=== PATIENT | male | born 1955 | race African-American/Black ===

== ENCOUNTER 2018-08-07 11:15 | Inpatient (IN) | payer MEDICARE, OTHER ==
[2018-08-07] MEDS ORDERED: Morphine 4 MG/ML VIAL ONE (12:31)
[2018-08-07 13:11] LABS: Anion Gap 15 mmol/L (10-20); BUN (Urea Nitrogen) 14 mg/dL (8.4-25.7); Calc. Creatinine Clearance 0 mL/min (70-130); Calcium 8.4 mg/dL (7.8-10.44); Carbon Dioxide 19 mmol/L (23-31); Chloride 107 mmol/L (98-107); Estimated GFR-MDRD 56; Glucose 102 mg/dL (80-115); Potassium 3.7 mmol/L (3.5-5.1); Sodium 137 mmol/L (136-145)
[2018-08-07] MEDS ORDERED: Succinylcholine Chloride 20 MG/ML 10 ml SYRINGE FS ONE (13:14)
[2018-08-07] MEDS ORDERED: Glycopyrrolate 0.2 MG/ML 5 ML SYRINGE ONE (13:14)
[2018-08-07] MEDS ORDERED: PROPOFOL 200 MG/20 ML VIAL ONE (13:14)
[2018-08-07] MEDS ORDERED: Dexamethasone 20 MG/5 ML VIAL ONE (13:14)
[2018-08-07] MEDS ORDERED: Ondansetron PF 4 MG/2 ML Vial ONE (13:14)
[2018-08-07] MEDS ORDERED: Lidocaine 1% PF 5 ML VIAL ONE (13:14)
[2018-08-07] MEDS ORDERED: PHENYLEPHRINE-NS 100 MCG/ML 10 ML SYRINGE ONE (13:14)
[2018-08-07] MEDS ORDERED: Dextrose 50% Abboject 50 ML SYRINGE SLOW IVP PRN ×2 (13:28→18:25)
[2018-08-07] MEDS ORDERED: Promethazine HCl 25 MG/ML VIAL IM PRN ×4 (13:28→18:25)
[2018-08-07] MEDS ORDERED: Ondansetron PF 4 MG/2 ML Vial IVP PRN ×3 (13:28→18:25)
[2018-08-07] MEDS ORDERED: Dextrose 5% in Water 1,000 ML IV PRN ×2 (13:28→18:25)
[2018-08-07] MEDS ORDERED: Acetaminophen 325 MG TAB PO PRN (13:28)
[2018-08-07] MEDS ORDERED: hydrALAZINE 20 MG/ML VIAL SLOW IVP PRN ×2 (13:28→18:25)
--- NOTE | 2018-08-07 13:28 | PDOC.EVN ---
Event Note - Event Note Event Note: H&P dictation number [id number]
[2018-08-07] MEDS ORDERED: ABX RENAL DOSE IVPB PRN (13:38)
--- NOTE | 2018-08-07 14:10 | HP-2 ---
DATE OF SERVICE: 08/07/2018 REFERRED BY: Dr. Natanael Ibanez in the emergency department. SURGERY ATTENDING: Kelvin Loza DO. REASON FOR CONSULTATION: 1. Peritonitis. 2. Acute ruptured appendicitis. 3. Sepsis without evidence of septic shock. HISTORY OF PRESENT ILLNESS: Mr. River is 63-year-old male with a past medical history of hypertensi on, hyperlipidemia who presented to the emergency department in [place] today with a chief complaint of 3 days onset of abdominal pain, anorexia, nausea, and vomiting. The patient states that his abdo lianna pain got acutely worse. He presented to the emergency department today. The patient was noted to have a lactate of 8, stable vital signs. Had a creatinine of 2.3. Severe abdominal pain with pe ritoneal signs. CT abdomen and pelvis reportedly demonstrates a ruptured appendicitis. The patient was given Zosyn, 2 liters of fluid, morphine, Toradol, and transferred to [facility] fo r surgery consultation. Upon arrival to the emergency department, the patient still has abdominal pa in, remains with stable vital signs and we have been consulted for admission and operative management of the patient's acute condition. I have seen the patient in the emergency department, he complains of 3 days of abdominal pain, still having tammie abdominal pain and is now diffuse at this point. He is anorexic. Last oral intake was 3 days ago. He is passing flatus, but not had a bowel movement. He has no prior abdominal surgeries . He is tachycardic on arrival. Blood pressure has remained stable. He is slightly febrile here. The patient has been given an additional liter of fluid. Repeat labs are in process. Patient is n.p .o. He denies any chest pain, shortness of breath. Denies any current nausea or vomiting. His pain is better controlled after morphine. He has no rashes and no history of bleeding or anticoagulants. REVIEW OF SYSTEMS: Pertinent positive and negative per HPI, otherwise 12-point review of systems is negative. PAST MEDICAL HISTORY: 1. Hypertension. 2. Hyperlipidemia. PAST SURGICAL HISTORY: Denies. ALLERGIES: No known drug allergies. MEDICATIONS: Carvedilol 3.125 mg daily. FAMILY HISTORY: His mother is 90 and healthy, not taking any medicine. Father of a perforated ulcer. SOCIAL HISTORY: The patient currently lives in [place]. He is retired and . 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 Has no service. He smokes 1 cigarette per day and chews smokeless tobacco. Rarely drinks alcohol. He has 2 sons at the bedside. PHYSICAL EXAMINATION: VITAL SIGNS: Temperature is 99.8, blood pressure 112/74, heart rate is 112, respiratory rate is 16. SpO2 96% on room air. GENERAL: This is a 63-year-old male sitting up in bed, in no acute distress. HEENT: Normocephalic, atraumatic. Trachea is midline. No JVD is appreciated. Mucous membranes are dry. RESPIRATORY: Equal rise and fall. Bilateral breath sounds clear to auscultation upper and lower karime aterally. CARDIOVASCULAR: Tachycardic, regular rhythm, rate of 112, no murmurs, no edema and strong peripheral pulses. ABDOMEN: Diffusely distended, tender throughout has positive peritoneal signs, rigidity and guarding is appreciated. GENITOURINARY: Palm is in place with yellow urine. MUSCULOSKELETAL: Moves extremities well. No deformity. SKIN: Hot, warm and dry. PSYCHIATRIC: Normal mood and affect. NEUROLOGIC: Alert and oriented to person, place, time, and event. DIAGNOSTIC DATA: From today, EKG shows a sinus tachycardia at the outside facility at a rate of 142, QT is 409. He has normal intervals, leftward axis. No STEMI is appreciated and occasional PVCs. W shraddha blood cell count was 10.3 with platelets of 356, hemoglobin and hematocrit 16.2 and 46.8 respect ively. No neutrophil predominance. Troponin was less than 0.01, a CK-MB of 1.0. Lactic acid was 8. 6, lipase of 21. Chemistry: Sodium is 137, potassium 3.9, chloride is 96, CO2 is 20, creatinine is 2.17, BUN of 15. He does have an anion gap of 25, glucose 165, bilirubin is 1.5, alkaline phosphatas e is 104, AST 32, ALT 37. A CT abdomen and pelvis reportedly demonstrates peritonitis and ruptured a ppendix. ASSESSMENT: 1. Acute peritonitis, likely secondary to ruptured appendicitis. 2. Severe sepsis without occult septic shock. 3. Lactic acidosis. 4. Tachycardia, likely secondary to #1 above. 5. Acute abdominal pain, likely secondary to #1 above. PLAN: 1. Continue fluid administration. 2. Continue antibiotics. 3. Repeat lactic acid now. 4. Blood cultures x2 have been ordered. 5. Likely needs operative repair. We will keep n.p.o. 6. Discussed OR with patient, verbalized understanding of the same. 7. Obtain consent. 8. Monitor blood pressure, maintain mean arterial pressure greater than 65. 9. Oxygen as needed to maintain SpO2 greater than 92%. 10. Diet will be n.p.o. 11. Activity: Bed rest until postoperatively. 12. Prophylaxis will be famotidine. Hold chemical DVT prophylaxis secondary to operative repair and we can apply sequential compression devices. 13. FULL CODE. 14. Access, or peripheral IVs and a Palm catheter. DISPOSITION: OR than likely the surgery main. I have updated the patient at the bedside and answered all questions of the patient and the family. I have coordinating care with the emergency department physician and we will discuss the plan with Dr Hector Loza.
[2018-08-07 14:46] LABS: Mean Corpuscular HGB CONC 32.5 g/dL (32.0-36.0); Mean Corpuscular Hemoglobin 29.2 pg (27.0-31.0); Mean Platelet Volume 7.5 fL (7.4-10.4); Platelet Count 225 thou/uL (130-400); RBC Distribution Width 13.2 % (11.5-14.5); Red Blood Cell (RBC) Count 4.78 mill/uL (4.70-6.10); White Blood Cell (WBC) Count 3.4 thou/uL (4.8-10.8)
[2018-08-07] MEDS ORDERED: Bupivacaine/Epinephrine 0.25% 30 ML VIAL ONE (14:48)
[2018-08-07 15:06] LABS: Band 6 % (5-11); Lymphocytes 31 % (21-51); MDiff Complete? YES; Monocytes 7 % (0-10); Neutrophil 56 % (42-75); PLT Morphology Comment Appears Adequate
[2018-08-07] MEDS ORDERED: Fentanyl 100 MCG/2 ML VIAL ONE ×3 (15:17→18:26)
[2018-08-07] MEDS ORDERED: Albumin 5% 500 ML ONE (15:57)
[2018-08-07] MEDS ORDERED: Ondansetron HCl/PF 4 MG/2 ML Vial IVP PRN (18:22)
[2018-08-07] MEDS ORDERED: Promethazine HCl 25 MG/ML VIAL SLOW IVP PRN (18:22)
[2018-08-07] MEDS ORDERED: Naloxone HCl 0.4 mg/ml Vial IV PRN (18:25)
[2018-08-07] MEDS ORDERED: HYDROmorphone 10 mg/100 ml CADD IVPB PRN (18:25)
[2018-08-07] MEDS ORDERED: diphenhydrAMINE 50 MG/ML VIAL IVP PRN (18:25)
[2018-08-07] MEDS ORDERED: diphenhydrAMINE 50 MG/ML VIAL IM PRN (18:25)
[2018-08-07] MEDS ORDERED: diphenhydrAMINE 25 MG CAP PO PRN (18:25)
[2018-08-07] MEDS ORDERED: Communication Order-Pharmacy FS SCH (18:30)
--- NOTE | 2018-08-07 19:04 | OP ---
DATE OF OPERATION: 08/07/2018 PREOPERATIVE DIAGNOSIS: Acute appendicitis with perforation. POSTOPERATIVE DIAGNOSES: 1. Acute necrotic appendicitis with rupture. 2. Multiple intraperitoneal abscesses with generalized peritonitis. OPERATION PERFORMED: 1. Laparoscopic appendectomy. 2. Drainage of multiple intraperitoneal abscesses. SURGEON: Kelvin Loza D.O. ANESTHESIA: General endotracheal. ESTIMATED BLOOD LOSS: 20 mL. FLUIDS GIVEN: 2500 mL crystalloids and 500 mL colloids. COMPLICATIONS: None apparent at time of operation. COUNTS: Sponge and instrument count are certified as correct x2. INDICATIONS FOR PROCEDURE: This is a 63-year-old man who presented with reportedly a 3-day history of right lower quadrant abdominal pain. He took some [id number] remedies witho ut relief, presented to the emergency department once started having fever yesterday. Clinical and r adiographic examination was consistent with acute appendicitis with perforation for which the patient was brought to the operating room for laparoscopic appendectomy. Findings are consistent with a nec rotic ruptured appendix with 2 large extraluminal appendicolith. Multiple intraperitoneal abscesses were encountered with much of pus. DESCRIPTION OF PROCEDURE: Informed consent was obtained from the patient who was brought to the oper ating room and placed in supine position. Following general anesthesia, a Palm catheter was inserte d and placed at bedside drain. The abdomen was sterilely prepped and draped in usual fashion. Skin below the umbilicus was infiltrated with 0.25% Marcaine with epinephrine. A small curvilinear infrau mbilical incision was made using an 11 scalpel. Umbilical stalk grasped with Lizzie's and elevated. Veress needle was inserted through the incision and placed in the peritoneal cavity through which th e abdomen was insufflated with 1.5 liters of CO2 gas insufflation terminated at the intra-abdominal p ressure of 15 mmHg. Intraabdominal pressure, however, was noted at 5 mmHg. Following abdominal insu fflation, Veress needle was removed and a 5 mm trocar was introduced using the Visiport under laparos copy. Laparoscopy confirmed proper placement of the port. Additional laparoscopy reveals multiple purulent exudates over the entire anterior abdominal wall inv olving bowel and omentum. Under direct laparoscopy, 5 mm suprapubic and a 12 mm left lower quadrant ports were placed after the overlying skin was infiltrated with 0.25% Marcaine with epinephrine and a ppropriate incisions made. The patient was then placed in a Trendelenburg position, rotated to his l eft. I used a Prestige grasper to bluntly take down omental adhesions off the right lower quadrant, exposing multiple interloop abscesses along the way with much of purulent pus which were evacuated. We were able to trace the distal ileum from the ileocecal junction to proximal 2 feet, finding no Mec andrew's diverticulum. Additional exploration revealed ruptured enlarged suppurative appendix with a ru ptured near the base of the appendix. Two large panniculus with sitting outside of the appendiceal lumen walled off within the bowel loops. There was also extensive amount of purulent pus all around the right lower quadrant and deep pelvis . Under laparoscopy, the two larger pedicles were removed using an EndoCatch. We then turned our at tention to the ruptured appendix. Using a [place] dissector, we created a rent through the mesoappe ndix near the ileocecal junction up. Through this defect, an Endo-VILMA with a blue load was introduce d dividing the appendix at the appendical cecal junction. The mesoappendix itself was sterilely divi ded using white load of the Endo-VILMA stapler. The ruptured appendix is delivered of the abdominal ca vity using an EndoCatch. We were then able to breakdown loculations of small bowel interloop abscess es. Evacuated the abscesses as they were encountered. Following this, the abdominal cavity was copi ously irrigated with saline solution until it was clear. Finding no other pathology, laparoscopy was terminated. A #19 Mannie drain was introduced into the right lateral gutters allowing this to exit t hrough the suprapubic port site. The drain was secured to intra-abdominal wall using 2-0 silk suture . Fascia of the left lower quadrant port was then closed using 0 Vicryl suture and Endo closure fredy ce under laparoscopy. Abdomen was desufflated. The remainder of the ports removed and accounted for . Skin incisions were closed using interrupted sutures of 4-0 Monocryl. Dermabond was applied over the incisional closure. The patient tolerated the operation without any apparent complication and wa s sent to recovery room in satisfactory condition.
[2018-08-07] MEDS ORDERED: Famotidine/PF 20 mg/2ml Vial SLOW IVP SCH (21:00)
[2018-08-07] MEDS ORDERED: Famotidine 20 MG TAB PO SCH (21:00)
[2018-08-07 21:30] VITALS: BMI 23.7
[2018-08-07] MEDS: Piperacillin/Tazobactam 3.375 GM in Sodium Chloride 0.9% 100 ML IVPB SCH ×2 (21:31→22:57)
[2018-08-07] MEDS: Sodium Chloride 0.9% 1,000 ML IV SCH ×2 (21:31→22:27)
[2018-08-07] MEDS: Famotidine/PF 20 mg/2ml Vial SLOW IVP SCH (22:26)
[2018-08-07] MEDS: Enoxaparin Sodium 40 MG/0.4 ML SYRINGE SC SCH (22:27)
[2018-08-07] MEDS: Famotidine 20 MG TAB PO SCH (22:27)
[2018-08-07] MEDS ORDERED: Piperacillin/Tazobactam 3.375 GM in Sodium Chloride 0.9% 100 ML IVPB SCH (23:59)
[2018-08-08] MEDS: Acetaminophen 1,000 MG in Premix Bag 1 BAG IVPB SCH ×4 (01:29→22:10)
[2018-08-08 04:54] LABS: Anion Gap 9 mmol/L (10-20); BUN (Urea Nitrogen) 9 mg/dL (8.4-25.7); Calc. Creatinine Clearance 90 mL/min (70-130); Calcium 8.8 mg/dL (7.8-10.44); Carbon Dioxide 30 mmol/L (23-31); Chloride 107 mmol/L (98-107); Estimated GFR-MDRD Greater than 90; Glucose 138 mg/dL (80-115); Magnesium 2.5 mg/dL (1.6-2.6); Potassium 4.3 mmol/L (3.5-5.1); Sodium 142 mmol/L (136-145)
[2018-08-08] MEDS: Piperacillin/Tazobactam 3.375 GM in Sodium Chloride 0.9% 100 ML IVPB SCH ×5 (05:24→22:10)
[2018-08-08] MEDS: Sodium Chloride 0.9% 1,000 ML IV SCH ×3 (05:25→16:02)
[2018-08-08] MEDS ORDERED: Prevnar 13-Val Conj/PF 0.5 ML SYRINGE IM ONE (09:00)
[2018-08-08] MEDS: Famotidine 20 MG TAB PO SCH ×2 (09:16→22:18)
[2018-08-08] MEDS: Famotidine/PF 20 mg/2ml Vial SLOW IVP SCH ×2 (09:18→22:10)
[2018-08-08 10:17] LABS: Band 51 % (5-11); Hemoglobin 12.3 g/dL (14.0-18.0); Lymphocytes 12 % (21-51); MDiff Complete? YES; Mean Corpuscular HGB CONC 32.4 g/dL (32.0-36.0); Mean Corpuscular Hemoglobin 29.3 pg (27.0-31.0); Mean Corpuscular Volume 90.4 fL (78.0-98.0); Mean Platelet Volume 7.9 fL (7.4-10.4); Monocytes 13 % (0-10); Neutrophil 13 % (42-75); Platelet Count 206 thou/uL (130-400); RBC Distribution Width 13.4 % (11.5-14.5); Reactive Lymphocytes 11 % (0-10)
[2018-08-08] MEDS: Ketorolac Tromethamine 30 MG/ML VIAL IVP SCH ×2 (14:01→18:12)
--- NOTE | 2018-08-08 15:06 | PRG ---
DATE OF SERVICE: 08/08/2018 SUBJECTIVE: Mr. River is a 63-year-old -[place] man who is postop day #1 status post laparo scopic appendectomy and drainage of extensive peritoneal abscesses. He is awake and alert this morni ng. He reports adequate pain control. He is not passing any flatus or having bowel movement. Howev er, denies any nausea. Urinary output is adequate. His nasogastric tube is in place and returns mod erate amount of bile-stained gastric effluent. OBJECTIVE: VITAL SIGNS: This morning includes blood pressure 123/77, pulse is 87, respiratory rate is 18, tempe rature is 98.4 degrees Fahrenheit, and oxygen saturation 91% on room air. HEENT: Pupils equal, round, and reactive to light and accommodation. HEART: Reveals regular rate and rhythm, no murmurs or gallops auscultated. LUNGS: Clear to auscultation bilaterally. Breathing is regular and unlabored. ABDOMEN: Soft and distended with gas. He has rebound tenderness present. However, decrease in abdo lianna tenderness from yesterday. Bowel sounds are hypoactive. EXTREMITIES: Reveals 2+ radial and pedal pulses bilaterally. No ankle edema is present. NEUROLOGIC: Examination reveals no focal deficits present. LABORATORY DATA: Laboratory findings today includes CBC with 6,000 white blood cells, hemoglobin and hematocrit 12.3 and 38.0 respectively. Platelet count is 206,000. Metabolic profile; sodium 142, p otassium 4.3, chloride is 107, bicarbonate is 30, BUN is 9, creatinine 0.97, glucose is 138, magnesiu m 2.5, phosphorus is 2.0. IMPRESSION: Postop day #1, status post laparoscopic appendectomy and drainage of multiple peritoneal abscesses. PLAN: 1. Continue with IV antibiotic therapy. 2. Continue with bowel rest and nasogastric tube decompression. 3. Increase activity. Above findings and plan discussed with the patient who indicates understanding of the information giv en to him today in the presence of his family. They all indicated understanding of information given . I answered their questions.
[2018-08-08] MEDS: Enoxaparin Sodium 40 MG/0.4 ML SYRINGE SC SCH (22:10)
[2018-08-09] MEDS: Ketorolac Tromethamine 30 MG/ML VIAL IVP SCH ×2 (00:16→05:23)
[2018-08-09] MEDS: Sodium Chloride 0.9% 1,000 ML IV SCH ×3 (00:17→13:02)
[2018-08-09] MEDS: Piperacillin/Tazobactam 3.375 GM in Sodium Chloride 0.9% 100 ML IVPB SCH ×2 (05:22→10:06)
[2018-08-09] MEDS: Acetaminophen 1,000 MG in Premix Bag 1 BAG IVPB SCH (05:22)
[2018-08-09] MEDS ORDERED: Acetaminophen 325 MG TAB PO PRN (06:00)
[2018-08-09] MEDS: Famotidine/PF 20 mg/2ml Vial SLOW IVP SCH ×2 (10:05→21:32)
[2018-08-09] MEDS: Famotidine 20 MG TAB PO SCH ×2 (10:06→21:41)
[2018-08-09] MEDS ORDERED: traMADol HCl 50 MG TAB PO PRN (11:18)
[2018-08-09] MEDS ORDERED: traMADol HCl 50 MG TAB PO SCH (11:30)
[2018-08-09] MEDS: Acetaminophen 500 MG TAB PO SCH ×3 (12:30→23:33)
[2018-08-09] MEDS: traMADol HCl 50 MG TAB PO SCH ×3 (12:31→23:33)
[2018-08-09] MEDS: Ibuprofen 600 MG TAB PO SCH ×2 (15:07→21:33)
--- NOTE | 2018-08-09 19:39 | PRG ---
DATE OF SERVICE: 08/09/2018 SUBJECTIVE: Mr. Chilo River is a 63-year-old male postop day 2 status post laparoscopic appendectom y and drainage of peritoneal abscess. There were no acute events. The patient's NG tube has been re moved. He reports passing flatus, but no bowel movement. OBJECTIVE: VITAL SIGNS: Temperature 97.8, pulse 84, respirations 16, O2 sat 94% on room air, blood pressure 139 /91. GENERAL: Well-developed male, in no acute distress, resting in bed. PULMONARY: Normal work of breathing. Symmetric rise. CARDIOVASCULAR: Regular rate and rhythm. GASTROINTESTINAL: Abdomen is soft, nontender and nondistended. MUSCULOSKELETAL: Moves all extremities x4. NEUROLOGIC: No focal deficit is noted. LABORATORY FINDINGS: No new laboratory findings. ASSESSMENT: 1. Status post laparoscopic appendectomy postop day 2. 2. Status post drainage of peritoneal abscess. PLAN: Advance diet to clear liquid diet. Transition from IV to oral antibiotics. Discontinue ROCK PICKER a t this time. Discontinue Palm. Oral analgesics. Saline lock. Continue to encourage incentive spi rometry and pulmonary toileting. Continue to encourage mobility and ambulation. Plan of care was di scussed with the patient at bedside and all questions were answered at the time of this dictation. T he patient was seen and evaluated with Dr. Loza.
[2018-08-09] MEDS: Amoxicillin/Potassium Clav 875 MG TAB PO SCH (21:32)
[2018-08-09] MEDS: Enoxaparin Sodium 40 MG/0.4 ML SYRINGE SC SCH (21:32)
[2018-08-10] MEDS: traMADol HCl 50 MG TAB PO SCH ×2 (06:07→12:48)
[2018-08-10] MEDS: Ibuprofen 600 MG TAB PO SCH (06:07)
[2018-08-10] MEDS: Acetaminophen 500 MG TAB PO SCH ×2 (06:07→12:49)
[2018-08-10] MEDS: Amoxicillin/Potassium Clav 875 MG TAB PO SCH (08:50)
[2018-08-10] MEDS ORDERED: Polyethylene Glycol 3350 17 GM Packet PO SCH (09:00)
[2018-08-10] MEDS ORDERED: Senokot 8.6 MG TAB PO SCH (09:00)
[2018-08-10] MEDS: Famotidine 20 MG TAB PO SCH (10:16)
[2018-08-10 11:36] VITALS: BP 143/88; TEMP 97.1
--- NOTE | 2018-08-11 11:10 | DIS-2 ---
DATE OF ADMISSION: 08/07/2018 DATE OF DISCHARGE: 08/10/2018 RESIDENT: Abbie Burger M.D. ADMITTING ATTENDING: Kelvin Loza D.O. DISCHARGE ATTENDING: Gokul Liam M.D. CONSULTATIONS: Walking program. PROCEDURES: On 08/07/2018, laparoscopic appendectomy with drainage of multiple intraperitoneal abscesses. SECONDARY DIAGNOSES: Hypertension and hyperlipidemia. DISCHARGE MEDICATIONS: 1. Tylenol extra strength 1000 mg oral every 6 hours. 2. Augmentin 875 mg oral every 12 hours. 3. Motrin 600 mg oral every 6 hours. 4. Ultram 100 mg oral every 6 hours. 5. Pravastatin 80 mg oral at bedtime. 6. Carvedilol 3.125 mg oral daily. DISCONTINUED MEDICATIONS: None. HISTORY OF PRESENT ILLNESS/HOSPITAL COURSE: This is a 63-year-old male with a past medical history of hypertension and hyperlipidemia who presented to the ER in [place] on 08/07/2018 with a chief complaint of 3 days onset of abdominal pain, anorexia, nausea and vomiting. The patient was noted to have a lactate of 8 and stable vital signs. He had a creatinine of 2.3. CT abdomen and pelvis demonstrated a ruptured appendicitis. The patient was given Zosyn, 2 liters of fluid, morphine, Toradol and transferred to [facility] in [place] for surgery consultation. The patient was taken to the OR by Dr. Loza on 08/07/2018 for laparoscopic appendectomy with drainage of abscesses, no complications. On postop day number 1, the patient had adequate pain control. He had not passed flatus or had a bowel movement yet. Urinary output was adequate. An NG tube was placed and returned a moderate amount of bile-stained gastric fluid. Activity with ambulation encouraged. On postop day number 2, the patient's diet was advanced to clear liquids. The patient was transitioned from IV to oral antibiotics. Pain control was still adequate. Continue to encourage incentive spirometry and pulmonary toileting. Mobility and ambulation continued to be encouraged. Bowel function had returned. As the patient was doing well with pain control and ambulation and vitals and labs have been stable, the patient is stable for discharge. On the day of discharge, the patient was seen by Dr. Lima and evaluated. The plan was discussed with the patient and family at the bedside who were all in agreement. DISPOSITION: Stable. DISCHARGE INSTRUCTIONS: 1. Location: Home. 2. Diet: Regular. 3. Activity: Ad marie. 4. Followup: With Dr. Loza within 7 days. Follow up with primary care provider within 10 days. ALFONSO
== END 2018-08-10 14:01 | disposition home or self-care (01) | DRG 853 ==
LOC: ERS 11:15 → SDC 14:51 → ERS 14:52 → SJJU 20:34
PROVIDERS: ADMIT Surgery; ATTEND Surgery
PROC: 0DTJ4ZZ Resection of Appendix, Percutaneous Endoscopic Approach (ICD-10-PCS; principal; 2018-08-07)
PROC: 0D9W4ZZ Drainage of Peritoneum, Percutaneous Endoscopic Approach (ICD-10-PCS; 2018-08-07)
DX: A41.9 Sepsis, unspecified organism (principal); K35.21 Acute appendicitis with generalized peritonitis, with abscess; E87.2 Acidosis; R65.20 Severe sepsis without septic shock; R00.0 Tachycardia, unspecified; I10 Essential (primary) hypertension; E78.5 Hyperlipidemia, unspecified
CPT/HCPCS: 36415; 80048; 83605; 83735; 84100; 85007; 85027; 86850; 86900; 86901; 88304; 90471; 90662; 90670; 96361; 96374; G0008; G0009; G8978-GP-CJ; G8979-GP-CJ; G8980-GP-CJ; J0131; J1100; J1650; J1885; J2001; J2270; J2405; J2543; J2704; J3010; J7050; P9045; S0028

== ENCOUNTER 2018-08-11 08:20 | Observation (INO) | payer MEDICARE ==
[2018-08-11] MEDS ORDERED: Morphine 4 MG/ML VIAL ONE (09:19)
[2018-08-11] MEDS ORDERED: Ondansetron PF 4 MG/2 ML Vial ONE (09:19)
[2018-08-11 09:20] LABS: Hemoglobin 14.7 g/dL (14.0-18.0); Mean Corpuscular HGB CONC 32.4 g/dL (32.0-36.0); Mean Corpuscular Hemoglobin 29.2 pg (27.0-31.0); Mean Corpuscular Volume 89.9 fL (78.0-98.0); Mean Platelet Volume 7.2 fL (7.4-10.4); Platelet Count 350 thou/uL (130-400); RBC Distribution Width 13.8 % (11.5-14.5); Red Blood Cell (RBC) Count 5.06 mill/uL (4.70-6.10); White Blood Cell (WBC) Count 12.7 thou/uL (4.8-10.8)
[2018-08-11 09:33] LABS: ALT (SGPT) 25 U/L (8-55); AST (SGOT) 25 U/L (5-34); Albumin 3.2 g/dL (3.4-4.8); Alkaline Phosphatase 64 U/L (40-150); Anion Gap 14 mmol/L (10-20); BUN (Urea Nitrogen) 8 mg/dL (8.4-25.7); Bilirubin, Total 0.7 mg/dL (0.2-1.2); Calc. Creatinine Clearance 0 mL/min (70-130); Calcium 9.5 mg/dL (7.8-10.44); Carbon Dioxide 25 mmol/L (23-31); Chloride 104 mmol/L (98-107); Estimated GFR-MDRD Greater than 90; Globulin 3.6 g/dL (2.4-3.5); Glucose 113 mg/dL (80-115); Potassium 3.6 mmol/L (3.5-5.1); Protein, Total 6.8 g/dL (5.8-8.1); Sodium 139 mmol/L (136-145)
[2018-08-11 09:36] LABS: Band 10 % (5-11); Eosinophils 5 % (0-10); Lymphocytes 7 % (21-51); MDiff Complete? YES; Metamyelocyte 1 % (0-0); Monocytes 3 % (0-10); Neutrophil 63 % (42-75); PLT Morphology Comment Appears Adequate; RBC Morphology Normal; Reactive Lymphocytes 11 % (0-10)
[2018-08-11] MEDS ORDERED: Lidocaine 4% Topical Sol 50 ML BOT ONE (10:19)
[2018-08-11] MEDS ORDERED: Oxymetazoline HCl 0.05% ( 15 ML ) ONE (10:20)
[2018-08-11] MEDS ORDERED: Benzocaine 20% Spray 60 ML CAN ONE ×2 (10:21→10:23)
[2018-08-11] MEDS ORDERED: Lidocaine Viscous Sol 2% 15 ml UD Cup ONE (10:24)
--- NOTE | 2018-08-11 10:37 | CT ---
CT ABDOMEN AND PELVIS WITH CONTRAST: Comparison: 08-07-18 History: Acute appendicitis with phlegmon. Technique: Multiple contiguous axial images were obtained in a CT of the abdomen and pelvis with cont rast. Coronal reformats were performed. FINDINGS: There are surgical clips adjacent to the cecum which are likely from interval appendectomy. There is a small amount of free air within the umbilicus which is likely from recent surgery. Soft tissue stra nding is seen in the small bowel mesentery. A small amount of free fluid is seen. There are a few oth er foci of free abdomen in the abdomen from recent surgery. The proximal small bowel loops are mildly dilated which may represent post-operative ileus. The distal small bowel loops and colon are decompr essed. There is mild enlargement of both ureters and both renal collecting systems which may be from the inf lammatory change. There are atherosclerotic calcifications of the aorta. No abdominal or pelvic lymphadenopathy are see n. Small bilateral pleural effusions with adjacent atelectasis are seen. Degenerative changes are seen i n the spine. IMPRESSION: 1. Post-surgical changes from recent appendectomy with post-operative ileus. 2. Mild enlargement of b oth urinary collecting systems is likely secondary to compression of the distal ureters by inflammato ry change. 3. Bilateral pleural effusions with adjacent atelectasis. POS: [facility]
[2018-08-11] MEDS ORDERED: ISOVUE-370 76%-LOCM 1 ML ONE (13:21)
[2018-08-11 13:49] LABS: Bilirubin Negative (Negative); Blood, Urine Negative (Negative); Clarity CLEAR (Clear); Glucose, Urine (Dipstick) Negative (Negative); Leukocyte Negative (Negative); Nitrite Negative (Negative); Protein, Urine (Dipstick) Negative (Neg-Trace); Specific Gravity, Urine 1.017 (1.002-1.036); pH, Urine 7.5 (5.0-9.0)
[2018-08-11 14:03] VITALS: BMI 24.9
[2018-08-11] MEDS ORDERED: Ondansetron PF 4 MG/2 ML Vial IVP PRN (15:22)
[2018-08-11] MEDS ORDERED: Ondansetron ODT 4 MG TAB SL PRN (15:22)
[2018-08-11] MEDS ORDERED: Sodium Chloride 0.9% 1,000 ML IV SCH (15:22)
[2018-08-11] MEDS ORDERED: traMADol HCl 50 MG TAB PO PRN ×2 (17:04)
[2018-08-11] MEDS ORDERED: Ibuprofen 600 MG TAB PO PRN (17:04)
[2018-08-11] MEDS: metroNIDAZOLE 500 MG TAB PO SCH (20:43)
[2018-08-11] MEDS: Ciprofloxacin 500 MG TAB PO SCH (20:43)
[2018-08-11] MEDS: Acetaminophen 500 MG TAB PO SCH (20:44)
[2018-08-11] MEDS ORDERED: Pravastatin Sodium 40 MG TAB PO SCH (21:00)
[2018-08-12] MEDS: Acetaminophen 500 MG TAB PO SCH ×4 (00:11→12:36)
--- NOTE | 2018-08-12 00:56 | HP ---
DATE OF ADMISSION: 08/11/2018 HISTORY OF PRESENT ILLNESS: Mr. River is a 63-year-old -[place] man who is postoperative da y #4 today status post laparoscopic appendectomy and drainage of multiple intraperitoneal abscesses. The patient was discharged home yesterday and returned to the emergency department this morning with complaint of abdominal bloating following a bout of profound diarrhea when he got home. He denies an y nausea or vomiting. Denies any fevers or chills. He denies any significant abdominal pain. He wa s evaluated in the emergency department with a CT scan of the abdomen and pelvis, which was suggestiv e of adynamic ileus. The patient was placed on observation. PHYSICAL EXAMINATION: GENERAL: At the time of my evaluation, he is awake and alert. He is ambulating. He had passed flat us about 30 minutes before my arrival. A nasogastric tube is in place and returns scant amount of no nbilious gastric effluent. VITAL SIGNS: Currently includes blood pressure 154/85, pulse 88, respiration rate 16, temperature is 98.7 degrees Fahrenheit, and oxygen saturation 94% on room air. HEART: Reveals regular rate and rhythm. No murmurs or gallops auscultated. LUNGS: Clear to auscultation bilaterally. Breathing regular and unlabored. ABDOMEN: Soft, moderately distended, but with incisional tenderness to palpation. He has no gross r ebound tenderness present. Bowel sounds in all four quadrants appear normoactive. Liver and spleen remain nonpalpable below costal margin. NEUROLOGIC: Reveals no focal deficits present. LABORATORY FINDINGS: Today includes CBC with 12,700 white blood cells, hemoglobin and hematocrit 14. 7 and 45.4 respectively. Platelet count 250,000. Differential counts: 63% segmented neutrophils, 1 0 bands, 7 lymphocytes, 3 monocytes, and 5 eosinophils. Metabolic profile: Sodium 139, potassium 3. 6, chloride is 104, bicarbonate 25, BUN 8, creatinine 0.74, glucose 113. Lactic acid is 1.4. IMAGING: I have personally reviewed the CT scan of the abdomen and pelvis, which reveals multiple di stended loops of small bowel. There is gas in the small bowel and colon all the way down to the rect um. IMPRESSION: 1. Postoperative day #4 status post laparoscopic appendectomy and drainage of multiple intraperitone al abscesses. 2. Adynamic ileus of postoperative nature. 3. I suspect the profound diarrhea is related to Augmentin. PLAN: 1. We will discontinue the nasogastric tube and initiate diet. 2. We will change the antibiotics to Cipro and Flagyl at this time. 3. The patient is encouraged to ambulate ad marie. Above findings and plan discussed with the patient who indicates understanding of information given. I have answered his questions.
[2018-08-12] MEDS: Ciprofloxacin 500 MG TAB PO SCH (05:05)
[2018-08-12] MEDS ORDERED: Polyethylene Glycol 3350 17 GM Packet PO SCH (09:00)
[2018-08-12] MEDS ORDERED: Tamsulosin HCl 0.4 MG CAP PO SCH (09:00)
[2018-08-12] MEDS ORDERED: Senokot 8.6 MG TAB PO SCH (09:00)
[2018-08-12] MEDS ORDERED: Enoxaparin Sodium 40 MG/0.4 ML SYRINGE SC SCH (09:00)
[2018-08-12] MEDS ORDERED: Carvedilol 3.125 MG TAB PO SCH (09:00)
[2018-08-12] MEDS: metroNIDAZOLE 500 MG TAB PO SCH (09:29)
[2018-08-12 11:12] VITALS: BP 149/84; TEMP 98
--- NOTE | 2018-08-12 12:10 | DIS-2 ---
DATE OF ADMISSION: 08/11/2018 DATE OF DISCHARGE: 08/12/2018 RESIDENT: Dr. Abbie Burger ATTENDING: Dr. Kelvin Loza CONSULTATIONS: None. PROCEDURES: None. PRIMARY DIAGNOSES: Adynamic ileus of postoperative nature, status post appendectomy and drainage of multiple intraperitoneal abscesses. SECONDARY DIAGNOSES: Hypertension and hyperlipidemia. DISCHARGE MEDICATIONS: 1. Tylenol extra strength 1000 mg p.o. every 6 hours. 2. Ciprofloxacin 500 mg twice a day for 7 days. 3. Motrin 600 mg q.8h. 4. Flagyl 500 mg 3 times a day for 7 days. 5. Ultram 100 mg q.6 hours. DISCONTINUED MEDICATIONS: Augmentin. HISTORY OF PRESENT ILLNESS/HOSPITAL COURSE: This is a 63-year-old male who is now postoperative day #5 status post laparoscopic appendectomy and drainage of multiple intraperitoneal abscesses. The patient was discharged on 08/10/2018 after this procedure and returned to the emergency department on 08/11/2018 with the complaint of abdominal bloating following a bout of profound diarrhea when he got home. The patient did not have nausea or vomiting, fevers or chills. The patient had a CT scan in the emergency department of the abdomen and pelvis suggestive of adynamic ileus. The patient was placed on observation. On the day of discharge, the patient had return of bowel function as he had a bowel movement and was passing gas. The patient was vitally stable and alert and oriented on exam. The patient reported 0/10 pain during exam. The patient was switched from Augmentin to ciprofloxacin and Flagyl for antibiotic therapy. The patient will continue these medications upon discharge. We discussed with the patient not to consume alcohol while taking these antibiotic medications. The patient was encouraged to ambulate ad marie upon discharge. On the day of discharge, the patient was seen and examined by Dr. Loza at the bedside. The plan was discussed with the patient and family at the bedside, who were all in agreement. DISPOSITION: Stable. DISCHARGE INSTRUCTIONS: 1. Location: Home. 2. Diet: Regular. 3. Activity: Ad marie. 4. Followup: Follow up with Dr. Loza within 14 days. [facility]
== END 2018-08-12 14:04 | disposition home or self-care (01) ==
LOC: ERS 08:20 → ERHOLD 10:43 → SURG A 13:40
PROVIDERS: ADMIT Surgery; ATTEND Surgery
DX: K91.89 Other postprocedural complications and disorders of digestive system (principal); K56.0 Paralytic ileus; I10 Essential (primary) hypertension; E78.5 Hyperlipidemia, unspecified; Z79.899 Other long term (current) drug therapy
CPT/HCPCS: 74177; 80053; 81003; 83605; 85025; 87040; 96361; 96372 ×2; 96374; 96375; 97139; 99285; 99406; G0378 ×2; 36415; J1650; J2001; J2270; J2405

== ENCOUNTER 2018-12-28 08:44 | Outpatient (CLI) | payer MEDICARE ==
--- NOTE | 2018-12-28 10:19 | CT ---
CT OF THE CHEST: DATE: 12/28/2018. COMPARISON: Correlation is made to CT abdomen and pelvis 08/11/2018 and 08/07/2018. HISTORY: Pulmonary nodule noted on prior CT of abdomen and pelvis. TECHNIQUE: Axial CT imaging obtained at 5 mm intervals from the thoracic inlet through the upper abdomen without contrast. Coronal reformatted imaging obtained. FINDINGS: Lack of contrast media limits assessment of the imaged viscera, vascular structures, and for lymphade nopathy. Limited assessment of the chest for lymphadenopathy appears unremarkable. Imaged upper abdomen unrem arkable. No pleural, pericardial, or mediastinal fluid. Scattered coronary arterial calcification i s noted. No pneumothorax is seen on either side. The left upper lobe appears unremarkable aside from linear density in the lingula, felt to most likel y represent scar and/or volume loss. This is similar when compared to prior correlation CT examinati ons. There is linear density noted within the medial aspect of the left lower lobe inferiorly as wel l, also likely on the basis of scar and/or volume loss. Right upper lobe and right middle lobe demon strate no acute findings. There is a solid nodule within the right lower lobe measuring 1.7 cm in greatest transverse dimension . When compared to the 08/07/2018 examination, this nodule is not significantly changed at which time it measured in the 1.5 cm range. Review of the osseous structures demonstrates no worrisome lytic or blastic bone lesion. IMPRESSION: A 1.6 cm mass in the peripheral aspect of the right lower lobe. This lesion represents bronchogenic carcinoma until proven otherwise. Further assessment via PET-CT advised. MANFRED T Case discussed with Dr. Julian at 1:30pm on 12/29/2018. POS: SHIRLEY
== END 2018-12-28 08:45 | disposition home or self-care (01) ==
LOC: CT 08:44
PROVIDERS: ATTEND Internal Medicine
DX: R91.1 Solitary pulmonary nodule (principal); R91.8 Other nonspecific abnormal finding of lung field
CPT/HCPCS: 71250

== ENCOUNTER 2019-02-18 10:08 | Outpatient (CLI) | payer MEDICARE ==
--- NOTE | 2019-02-18 13:56 | PET ---
PET CT: HISTORY: Solitary pulmonary nodule, right lower lung mass on CT scan. TECHNIQUE: PET scanning with CT correction was performed from the base of the brain through the proximal thighs following the intravenous administration of 11 mCi [id number] in the right hand. COMPARISON: None. CORRELATION: CT chest without contrast dated 12/28/2018. FINDINGS: There is abnormally increased FDG localization in the 16 mm right lower lobe lung nodule noted on the CT scan with an SUV of 8. No other hypermetabolic pulmonary nodules are seen. No keith hypermetabolism is seen in the neck, mediastinum, hilar regions, axillae, abdomen, pelvis, o r inguinal regions. No hypermetabolic liver, adrenal, or skeletal lesions are seen. There is physiologic activity in the GI and tracts, tonsils, and the visualized portions of the br ain. The CT scan used for attenuation correction demonstrates no evidence of pleural effusions or ascites. IMPRESSION: Findings are suspicious for right lower lobe malignancy. No evidence of metastatic disease. POS: SHIRLEY
== END 2019-02-18 10:09 | disposition home or self-care (01) ==
LOC: PET 10:08
PROVIDERS: ATTEND Internal Medicine
DX: R91.8 Other nonspecific abnormal finding of lung field (principal)
CPT/HCPCS: 78815; A9552

== ENCOUNTER 2020-02-16 17:02 | Inpatient (IN) | payer MEDICARE, OTHER ==
--- NOTE | 2020-02-16 19:44 | PDOC.HHP ---
Hospitalist HPI - History of Present Illness SOB with little activity History of Present Illness: Patient presents with complaints of abdominal pain and shortness of breath since December of this year. He states the pain has stayed the same but more recently he started noticing shortness of breath with walking shorter distances at home. He spoke to his son about it who was concerned about COVID and therefore prompted him to seek medical attention. He sought care at [facility] and after undergoing work-up was transferred here. Imaging done to rule out a PE, demonstrated a lung mass as well as liver and lumbar spine mets. There was no evidence of PE. Patient aware of these results but states today was the first time he hears of him having cancer. He had a PET scan that was done one year ago(02/18/2019) to evaluate a lung mass that showed concerns for malignancy in the right lower lobe with no evidence of metastatic disease at that time. The patient states he was told there was nothing wrong with him and he did not have any more follow-up. He states he was not aware he had anything concerning for cancer. Reports having long standing issues with lower back pain for 13-15 years which at times cause his legs to give way. When his back pain is at its worse, he feels pain and tingling down both of his legs. Denies any numbness or weakness. Has not experienced any urine or stool incontinence. Does not have any groin/saddle numbness or tingling. Reports using a cane to walk but has done so for over 10 years. He reports having a cough that has been dry. That with the sob is what alarmed him. He denies any chest pain. Has been afebrile. Denies any sob at rest. No urinary symptoms or bowel changes. Is unsure of any significant weight loss. Denies any issues with his appetite. ED Course: Labs done in the ED included a d-dimer which was elevated at 3.58. Also his LFTs were elevated. AST 225, ALT 123, Alk phos 497, T bili 2.9 BUN 8, Creat 0.65, GFR >90, Lactic acid 3.2, improved to 2.4. BNP 10.1. Albumin 2.6 CXR: Interval increase in size of right lobe mass with surrounding pneumonitis. CTA: (Compared to PET done in 01/2019). No evidence of PE, however adenopathy and mass encases the branches of the right pulmonary artery significantly narrows them. Right lower lobe mass increased in size over the last year. Associated right pleural effusion and some surrounding pneumonitis. Interval development of hepatomegaly with multiple liver masses consistent with diffuse metastatic disease. Evidence of metastatic disease to the lumbar spine and mediastinal adenopathy. Hospitalist ROS - Review of Systems Constitutional: denies: fever, chills, sweats, weakness, malaise, other Eyes: denies: pain, vision change, conjunctivae inflammation, eyelid inflammation, redness, other ENT: denies: ear pain, ear discharge, nose pain, nose discharge, nose congestion , mouth pain, mouth swelling, throat pain, throat swelling, other Respiratory: reports: cough, dry, SOB with excertion. denies: shortness of breath, hemoptysis, pleuritic pain, sputum, wheezing, other Cardiovascular: denies: chest pain, palpitations, orthopnea, paroxysmal noc. dyspnea, edema, light headedness, other Gastrointestinal: reports: abdominal pain. denies: nausea, vomiting, diarrhea, constipation, melena, hematochezia, other Genitourinary: denies: dysuria, frequency, incontinence, hematuria, retention, other Musculoskeletal: reports: back pain (lower back, chronic and worse to the right side of his back. Rates it a 6/10 in severity. Radiates to both sides of his legs when it gets worse), leg pain. denies: neck pain, shoulder pain, arm pain , hand pain, foot pain, other Skin: denies: rash, lesions, adelina, bruising, other Neurological: reports: weakness (States when he has pain sometimes his legs give out but also states he does not feel his legs are week.). denies: numbness , incoordination, change in speech, confusion, seizures, other Hospitalist History - Past Medical History Source: patient Cardiac: reports: HTN, Hyperlipidemia Musculoskeletal: reports: Chronic low back pain - Past Surgical History Past Surgical History: reports: Appendectomy - Family History Family History: reports: no pertinent history - Social History Alcohol: reports: Heavy (He drinks 1 beer a day) Drugs: reports: none Living Situation: Alone Activity level: uses cane/walker - Exam General Appearance: NAD, awake alert Eye: PERRL, anicteric sclera ENT: normocephalic atraumatic, dry oral mucosa Neck: supple Heart: RRR, no murmur, normal peripheral pulses Respiratory: CTAB, no wheezes, no rales, no ronchi, normal chest expansion, no tachypnea Gastrointestinal: soft (slightly distended), no guarding, no rigidity, tender to palpation (RUQ discomfort with palpation) Extremities: no edema Skin: normal turgor, no rashes Neurological: cranial nerve grossly intact, no weakness, no focal deficits Musculoskeletal: normal tone, normal strength, no muscle wasting Psychiatric: normal affect, normal behavior, A&O x 3 Hospitalist Results - EKG Interpretation EKG: Sinus tachycardia, HR 105 (done in ED) - Radiology Interpretation CT scan - chest Status: report reviewed by mn Hospitalist H&P A/P - Problem (1) SOB (shortness of breath) on exertion Code(s): R06.02 - SHORTNESS OF BREATH Status: Acute (2) Abdominal pain Code(s): R10.9 - UNSPECIFIED ABDOMINAL PAIN Status: Acute (3) Chronic low back pain Code(s): M54.5 - LOW BACK PAIN; G89.29 - OTHER CHRONIC PAIN Status: Chronic (4) Lung mass Code(s): R91.8 - OTHER NONSPECIFIC ABNORMAL FINDING OF LUNG FIELD Status: Chronic (5) Metastatic adenocarcinoma to liver Code(s): C78.7 - SECONDARY MALIG NEOPLASM OF LIVER AND INTRAHEPATIC BILE DUCT Status: Acute (6) Spine metastasis Code(s): C79.51 - SECONDARY MALIGNANT NEOPLASM OF BONE Status: Acute (7) Abnormal LFTs Code(s): R94.5 - ABNORMAL RESULTS OF LIVER FUNCTION STUDIES Status: Acute (8) Person under investigation for COVID-19 Code(s): Z20.828 - CONTACT W AND EXPOSURE TO OTH VIRAL COMMUNICABLE DISEASES Status: Acute - Plan Plan: COVID testing pending. Echo ordered, given PLATA, however more likely due to underlying lung mass/ pneumonitis. CT guided biopsy of lung mass, as per discussion with Dr. Ko (seen on PET scan a year ago but patient unaware without any work-up done at that time) Oncology consulted Monitor LFTs, hold tylenol which he takes at home. Add-on coags. Monitor BP. Reconcile home medications once verified. PT/OT consulted. Further spine imaging as per day team, no signs/symptoms of cauda equina at this time, however does report legs give out at times. DVT Prophylaxis with mechanical SCDs. GI prophylaxis with Famotidine. CODE STATUS: FULL. Consult Palliative Care given new diagnosis/complex decision making.
[2020-02-16] MEDS: Sodium Chloride 0.9% 1,000 ML IV SCH (20:18)
[2020-02-16] MEDS: Carvedilol 3.125 MG TAB PO SCH (20:18)
[2020-02-16] MEDS: Famotidine/PF 20 mg/2ml Vial SLOW IVP SCH (20:19)
[2020-02-16 21:27] LABS: INR-International Normal Ratio 1.2; PTT 29.3 SEC (22.9-36.1); Prothrombin Time 14.9 sec (12.0-14.7)
[2020-02-16 21:46] LABS: Lactic Acid 3.2 mmol/L (0.5-2.2)
[2020-02-16] MEDS: Ketorolac Tromethamine 10 MG TAB PO SCH (23:23)
[2020-02-17] MEDS: Ketorolac Tromethamine 10 MG TAB PO SCH (05:03)
[2020-02-17] MEDS: Sodium Chloride 0.9% 1,000 ML IV SCH ×2 (05:35→18:23)
[2020-02-17 05:49] LABS: Band 1 % (5-11); Eosinophils 3 % (0-10); Hemoglobin 10.9 g/dL (14.0-18.0); Hypochromia SLIGHT = 6-15 cells (100X) (0-5/hpf); Lymphocytes 10 % (21-51); MDiff Complete? YES; Mean Corpuscular HGB CONC 31.7 g/dL (32.0-36.0); Mean Corpuscular Volume 85.2 fL (78.0-98.0); Monocytes 14 % (0-10); Neutrophil 72 % (42-75); Platelet Count 210 thou/uL (130-400); Platelet Morphology Comment Appears Adequate; RBC Distribution Width 16.9 % (11.5-14.5); Red Blood Cell (RBC) Count 4.03 mill/uL (4.70-6.10); White Blood Cell (WBC) Count 7.6 thou/uL (4.8-10.8)
[2020-02-17 05:50] LABS: ALT (SGPT) 110 U/L (8-55); AST (SGOT) 207 U/L (5-34); Albumin 2.3 g/dL (3.4-4.8); Alkaline Phosphatase 448 U/L (40-110); Anion Gap 12 mmol/L (10-20); BUN (Urea Nitrogen) 7 mg/dL (8.4-25.7); Bilirubin, Total 2.9 mg/dL (0.2-1.2); Calc. Creatinine Clearance 142 mL/min (70-130); Calcium 9.9 mg/dL (7.8-10.44); Carbon Dioxide 24 mmol/L (23-31); Chloride 105 mmol/L (98-107); Estimated GFR-MDRD Greater than 90; Globulin 4.7 g/dL (2.4-3.5); Glucose 72 mg/dL (80-115); Potassium 3.9 mmol/L (3.5-5.1); Sodium 137 mmol/L (136-145)
[2020-02-17] MEDS ORDERED: Prevnar 13-Val Conj/PF 0.5 ML SYRINGE IM ONE (09:00)
--- NOTE | 2020-02-17 09:43 | PDOC.HOSPP ---
- Subjective Encounter Date: 02/17/20 Encounter Time: 09:00 Subjective: no overnight events. this morning, feeling better and abdominal pain resolved. COVID ruled out. pending ischial biopsy for diagnosis and staging. - Objective Vital Signs & Weight: Vital Signs (12 hours) Temp Pulse Resp BP Pulse Ox 02/17/20 05:10 97.6 F 87 18 136/78 96 02/16/20 23:23 98.3 F 91 16 130/85 97 Weight Weight 198 lb 11.2 oz I&O: 02/16/20 02/17/20 02/18/20 06:59 06:59 06:59 Intake Total 1321 Output Total 425 Balance 896 Result Diagrams: 02/17/20 05:16 02/17/20 05:16 Hospitalist ROS - Review of Systems Constitutional: denies: fever, chills, sweats, weakness, malaise, other Respiratory: denies: cough, dry, shortness of breath, hemoptysis, SOB with excertion, pleuritic pain, sputum, wheezing Cardiovascular: denies: chest pain, palpitations, orthopnea, paroxysmal noc. dyspnea, edema, light headedness, other Musculoskeletal: denies: neck pain, shoulder pain, arm pain, back pain, hand pain, leg pain, foot pain, other - Medication Medications: Active Medications Generic Name Dose Route Start Last Admin Trade Name Freq PRN Reason Stop Dose Admin Carvedilol 3.125 mg 02/16/20 21:00 02/16/20 20:18 Coreg PO 3.125 mg BID RAJNI Administration Famotidine 20 mg 02/16/20 21:00 02/16/20 20:19 Pepcid SLOW IVP 20 mg Q12HR RAJNI Administration Sodium Chloride 1,000 mls @ 100 mls/hr 02/16/20 19:30 02/17/20 05:35 Normal Saline 0.9% IV 1,000 mls .Q10H RAJNI Administration Sodium Chloride 10 ml 02/16/20 19:25 02/16/20 20:19 Flush - Normal Saline IVF 10 ml Q12HR PRN Administration Saline Flush - Exam General Appearance: NAD, awake alert Eye: PERRL, anicteric sclera Neck: no JVD Heart: RRR, no murmur, no gallops, no rubs Respiratory: CTAB, no wheezes, no rales, no ronchi Gastrointestinal: soft, non-tender, distended Extremities: no edema Psychiatric: normal affect, normal behavior, A&O x 3 Hosp A/P - Plan #Lung primary with mets to bone and liver -right iliac bone biopsy pending #back pain #abdominal pain -likely metasteses related -pain management #Cholestasis -considering no symptoms associated with extrahepatic obstruction and extensive liver mets, likely intrahepatic cholestasis
[2020-02-17] MEDS: Carvedilol 3.125 MG TAB PO SCH ×2 (10:06→20:18)
[2020-02-17] MEDS: Famotidine/PF 20 mg/2ml Vial SLOW IVP SCH ×2 (10:06→20:18)
[2020-02-17] MEDS: Enoxaparin Sodium 40 MG/0.4 ML SYRINGE SC SCH (10:07)
--- NOTE | 2020-02-17 11:32 | PDOC.PALFU ---
Palliative Care Follow-up Note Palliative Care aware of consult. Will follow up after biopsy to discuss Goal of Care and support complex decision making.
[2020-02-17] MEDS ORDERED: Sodium Bicarbonate 2.5 MEQ/5 ML VIAL ONE (12:50)
--- NOTE | 2020-02-17 15:54 | CT ---
CT-guided metastatic bone lesion biopsy of right sacral ala: DATE: 02/17/2020 HISTORY: 64-year-old male with right lower lobe lung cancer metastatic to bone. TECHNIQUE: Signed informed consent obtained. Patient placed prone on CT table. Skin posterior to posterior super ior iliac spine prepared and draped in usual sterile fashion. 25-gauge needle used to apply buffered lidocaine superficially and deeply. 17-gauge introducer needle advanced under step CT guidan ce, applying additional buffered lidocaine through the right retrosacral paraspinal musculature as it was incrementally advanced. 18-gauge biopsy needle placed in coaxial fashion through the introduce r needle. Biopsy gun fired, yielding core tissue sample, which was smeared on slides and given to pathologist. Preliminary touch preparation light microscopy demonstrates positive malignant cells, pr obably adenocarcinoma. A second 18-gauge core biopsy tissue sample was obtained, and placed into formalin. Introducer needle removed. Patient tolerated procedure well. No complications. 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
[2020-02-17] MEDS: Acetaminophen 325 MG TAB PO PRN ×2 (18:35→23:24)
[2020-02-17] MEDS: traMADol HCl 50 MG TAB PO PRN (22:18)
[2020-02-18] MEDS: Sodium Chloride 0.9% 1,000 ML IV SCH ×2 (04:09→14:27)
[2020-02-18] MEDS: Acetaminophen 325 MG TAB PO PRN ×2 (04:11→20:58)
[2020-02-18] MEDS: Carvedilol 3.125 MG TAB PO SCH ×2 (09:31→20:00)
[2020-02-18] MEDS: Enoxaparin Sodium 40 MG/0.4 ML SYRINGE SC SCH (09:33)
[2020-02-18] MEDS: Famotidine/PF 20 mg/2ml Vial SLOW IVP SCH ×2 (09:34→20:00)
--- NOTE | 2020-02-18 15:54 | PDOC.PALCO ---
Palliative Care Consult - Consult Details Requesting Physician: Leeanne VARGAS Reason for Consult: goals of care, complex decision-making - Pertinent HPI 64 year old male who presented to the [facility] emergency room with complain of shortness of breath since December 2019 that has progressively become worse with exertion. No relieving factors other than rest. Lives independently, ambulates with cane. Imagining was obtained to rule out a PE and lung mass as well as liver, lumber mets identified. Patient states that he was told he had a lung mass a year ago, but was not told to follow up as per history. Transferred to [facility] for medical management and further evaluation. Also reported long history of back pain, radiating to lower extremities. - Pertinent PMH Hypertension, HDL, Chronic back pain - Social History Alcohol Use: daily Drug Use History: none Living Situation: independent - Medications MAR Reviewed: Yes - Allergies Allergies/Adverse Reactions: Allergies Allergy/AdvReac Type Severity Reaction Status Date / Time No Known Drug Allergies Allergy Verified 02/16/20 17:46 - Subjective Denies complaints of pain at time of assessment. States he continues to have shortness of breath with exertion. Son Chilo has been active in patient care at hospital. - ROS Constitutional: alert ENT: alteration in dentition Respiratory: dry cough, shortness of breath with extertion Cardiology: other (deneis chest pain, palpitations) Gastrointestinal: other (denies nausea at time of assessemtn, constipation) Genitourinary: other (denies frequency, hematuria) Musculoskeletal: back pain Neurological: other (denies numbness tingling) Psychological: other (slight increase in anxiety to recent diagnosis) - Objective Vital Signs: Vital Signs - Most Recent Temp Pulse Resp BP Pulse Ox 97.9 F 81 16 138/81 96 02/18/20 12:00 02/18/20 12:00 02/18/20 12:00 02/18/20 12:00 02/18/20 12:00 Palliative Performance Scale: 70 - Physical Exam Constitutional: cachectic, ill appearing HEENT: EOMI, moist MMs, poor dentition Respiratory: clear to auscultation bilateral, unlabored breathing Cardiovascular: RRR Gastrointestinal: soft Deviation from normal: distended Genitourinary: continent Musculoskeletal: no cyanosis, no clubbing Neurology: moves all 4 limbs Skin: cap refill <2 seconds Psychiatric: A&O x 3, normal mood - Problem List (1) Palliative care encounter Code(s): Z51.5 - ENCOUNTER FOR PALLIATIVE CARE Current Visit: Yes Status: Acute (2) Abnormal LFTs Code(s): R94.5 - ABNORMAL RESULTS OF LIVER FUNCTION STUDIES Current Visit: Yes Status: Acute (3) Metastatic adenocarcinoma to liver Code(s): C78.7 - SECONDARY MALIG NEOPLASM OF LIVER AND INTRAHEPATIC BILE DUCT Current Visit: Yes Status: Acute (4) SOB (shortness of breath) on exertion Code(s): R06.02 - SHORTNESS OF BREATH Current Visit: Yes Status: Acute (5) Spine metastasis Code(s): C79.51 - SECONDARY MALIGNANT NEOPLASM OF BONE Current Visit: Yes Status: Acute (6) Chronic low back pain Code(s): M54.5 - LOW BACK PAIN; G89.29 - OTHER CHRONIC PAIN Current Visit: Yes Status: Chronic (7) Lung mass Code(s): R91.8 - OTHER NONSPECIFIC ABNORMAL FINDING OF LUNG FIELD Current Visit: Yes Status: Chronic - Plan/Recommendations Plan: Patient has 3 children, his son Chilo is most active in his care. States he feels overwhelmed with current prognosis and metastatic cancer. He states his initial thought is to go home and "not worry with treatment'. Discussed that maybe a consideration would be to have follow up visit to determine options to manage/treat cancer then with his family discuss optimal goal of care. Agreeable to wait before making any decision until he has all the information and option to treat/manage cancer prior to making a decision. Emotional support and Therapeutic listening Currently pain regimen appears to mitigate pain. Denies nausea at present, adequate intake related to diet as per patient. Will readdress Advance care planning when his son is present. [60] minutes spent on this encounter with >50% of the time in counseling and coordination of care. Thank you for this very appropriate consult.
--- NOTE | 2020-02-18 15:55 | PDOC.HOSPP ---
- Subjective Encounter Date: 02/18/20 Encounter Time: 09:00 Subjective: no overnight events. this morning, endorses improvement in abdominal pain and has no complaints - Objective Vital Signs & Weight: Vital Signs (12 hours) Temp Pulse Resp BP Pulse Ox 02/18/20 12:00 97.9 F 81 16 138/81 96 02/18/20 08:00 97.8 F 82 16 131/80 97 02/18/20 04:00 97.4 F L 87 18 137/84 97 Weight Admit Weight 197 lb 4.8 oz Weight 198 lb 11.2 oz I&O: 02/17/20 02/18/20 02/19/20 06:59 06:59 06:59 Intake Total 5138 785 4125 Output Total 425 700 Balance 923 67 4059 Result Diagrams: 02/17/20 05:16 02/17/20 05:16 Hospitalist ROS - Review of Systems Constitutional: denies: fever, chills, sweats, weakness, malaise, other Respiratory: denies: cough, dry, shortness of breath, hemoptysis, SOB with excertion, pleuritic pain, sputum, wheezing, other Cardiovascular: denies: chest pain, palpitations, orthopnea, paroxysmal noc. dyspnea, edema, light headedness, other Gastrointestinal: denies: nausea, vomiting, abdominal pain, diarrhea, constipation, melena, hematochezia, other - Medication Medications: Active Medications Generic Name Dose Route Start Last Admin Trade Name Freq PRN Reason Stop Dose Admin Acetaminophen 650 mg 02/16/20 18:04 02/18/20 04:11 Tylenol PO 650 mg Q4H PRN Administration Headache/Fever/Mild Pain (1-3) Carvedilol 3.125 mg 02/16/20 21:00 02/18/20 09:31 Coreg PO 3.125 mg BID RAJNI Administration Cholecalciferol 1,000 units 02/17/20 09:00 02/18/20 09:31 Vitamin D3 PO 1,000 units DAILY RAJNI Administration Enoxaparin Sodium 40 mg 02/17/20 09:00 02/18/20 09:33 Lovenox SC 40 mg 0900 RAJNI Administration Famotidine 20 mg 02/16/20 21:00 02/18/20 09:34 Pepcid SLOW IVP 20 mg Q12HR RAJNI Administration Sodium Chloride 1,000 mls @ 100 mls/hr 02/16/20 19:30 02/18/20 14:27 Normal Saline 0.9% IV 1,000 mls .Q10H RAJNI Administration Sodium Chloride 10 ml 02/16/20 19:25 02/17/20 20:18 Flush - Normal Saline IVF 10 ml Q12HR PRN Administration Saline Flush Tramadol HCl 50 mg 02/17/20 09:13 02/17/20 22:18 Ultram PO 50 mg Q6H PRN Administration Moderate to Severe Pain (6-10) - Exam General Appearance: NAD, awake alert Heart: RRR, no murmur, no gallops, no rubs Respiratory: CTAB, no wheezes, no rales, no ronchi Gastrointestinal: soft, non-tender, non-distended, normal bowel sounds Gastrointestinal - other findings: mild RUQ tenderness Extremities: no edema Psychiatric: normal affect, normal behavior, A&O x 3 Hosp A/P - Plan #Lung primary with mets to bone and liver -right iliac bone biopsy pending #back pain #abdominal pain -likely metasteses related -pain management #Cholestasis -considering no symptoms associated with extrahepatic obstruction and extensive liver mets, likely intrahepatic cholestasis
[2020-02-18] MEDS: traMADol HCl 50 MG TAB PO PRN (20:01)
--- NOTE | 2020-02-18 22:50 | CON ---
DATE OF CONSULTATION: REASON FOR CONSULT: Lung mass. HISTORY OF PRESENT ILLNESS: Mr. River is a pleasant 64-year-old gentleman who has a right lower lobe nodule that was monitored by his primary care. He apparently had a PET scan in December 2018, which was negative. Over the last month or so, he has been feeling weak with a 10-pound weight loss, poor appetite, and increasing abdominal girth. He was taken to [facility] for possible coronavirus. CT angio of the chest showed an increase in size of the right lower lobe mass, now measuring 3.4 cm. There was adenopathy that was encasing some of the branches of the right pulmonary artery. He had hepatomegaly with multiple liver metastases. There was evidence of metastatic disease in the lumbar spine. He was admitted for further workup. He was tested for COVID, which was negative. He underwent biopsy of a lesion in his right iliac bone. Results are currently pending. The patient has a history of smoking, quit about 6 years ago. No alcohol use. His liver enzymes are slightly elevated as well as his calcium, which did improve with IV fluids. The patient was seen at bedside. He has no complaints at this time. History was obtained from patient and discussion included son via telephone. PAST MEDICAL HISTORY: 1. Hypertension. 2. Hyperlipidemia. 3. Right lower lobe lung nodule. PAST SURGICAL HISTORY: Appendectomy. ALLERGIES: NO KNOWN DRUG ALLERGIES. HOME MEDICATIONS: 1. Carvedilol 3.125 mg. 2. Pravastatin 80 mg daily. FAMILY HISTORY: No history of lung cancer. SOCIAL HISTORY: . Lives alone with his son nearby, [id number] history of smoking. No alcohol or illicit drug use. REVIEW OF SYSTEMS: A 10-point review of systems is negative except for noted in HPI. PHYSICAL EXAMINATION: VITAL SIGNS: Temperature 97.9, pulse is 81, respiratory rate 16, BP is 138/81. He is 96% on room air. GENERAL: A well-developed, well-nourished male, in no acute distress. HEENT: Normocephalic, atraumatic. Pupils are equal and reactive to light. NECK: Supple. CVS: Regular rate and rhythm. LUNGS: He has an expiratory wheeze on the right. ABDOMEN: Distended. He has hepatomegaly, palpable liver. EXTREMITIES: No clubbing or cyanosis. SKIN: No rash. HEMATOLOGICAL: No petechiae or purpura. NEUROLOGICAL: Nonfocal. PERTINENT LABS AND X-RAYS: Current WBCs 7.6, hemoglobin 10.9, hematocrit 34.3, platelet count is 210,000. He has 72% neutrophils, 10% bands, 14% lymphocytes. PT is 14.9, INR is 1.2, PTT 29.3. Sodium is 137, potassium 3.9, chloride 105, CO2 is 24, BUN is 7, creatinine 0.65, calcium 9.9. Bilirubin 2.9, AST is 207, ALT is 110, alkaline phosphatase is 448. Serum total protein is 7, albumin 2.3, globulin 4.7. Radiology per HPI. ASSESSMENT: 1. Metastatic lung cancer with bone and liver metastases. 2. Elevated LFTs secondary to metastatic disease. DISCUSSION: Case was discussed with the patient and son. Plan to wait for pathology for final recommendations. However, we discussed that this is advanced disease and that chemotherapy/immunotherapy is treatment. He has not been fully staged with a brain MRI, so we will order that today and we will check a CEA and compare to the September CEA of 5.96. Case has also been discussed with Dr. Ray. The patient will follow up with him next week in the clinic to discuss treatment options. Addendum: review of prior pet shows that lung nodule was PET avid. Patient admits he was instructed to follow-up for biopsy but did not do so as instructed. Thank you for the consult. Job ID: [id number] [id number]
[2020-02-19] MEDS: Sodium Chloride 0.9% 1,000 ML IV SCH ×3 (00:07→15:52)
[2020-02-19 06:10] LABS: #Basophils 0.1 thou/uL (0.0-0.2); #Eosinphils 0.1 thou/uL (0.0-0.7); #Lymphocytes 2.3 thou/uL (1.20-3.40); #Monocytes 1.1 thou/uL (0.11-0.59); #Neutrophils 4.1 thou/uL (1.40-6.50); %Basophils 0.8 % (0.0-1.0); %Eosinophils 1.7 % (0.0-10.0); %Lymphocytes 30.2 % (21.0-51.0); %Monocytes 13.8 % (0.0-10.0); %Neutrophils 53.6 % (42.0-75.0); Hemoglobin 11.5 g/dL (14.0-18.0); Mean Corpuscular HGB CONC 31.2 g/dL (32.0-36.0); Mean Corpuscular Volume 86.5 fL (78.0-98.0); Mean Platelet Volume 8.5 fL (7.4-10.4); Platelet Count 193 thou/uL (130-400); RBC Distribution Width 17.5 % (11.5-14.5); Red Blood Cell (RBC) Count 4.25 mill/uL (4.70-6.10); White Blood Cell (WBC) Count 7.7 thou/uL (4.8-10.8)
[2020-02-19] MEDS: traMADol HCl 50 MG TAB PO PRN ×2 (08:07→20:30)
[2020-02-19] MEDS: Carvedilol 3.125 MG TAB PO SCH ×2 (08:08→20:28)
[2020-02-19] MEDS: Enoxaparin Sodium 40 MG/0.4 ML SYRINGE SC SCH (08:08)
[2020-02-19] MEDS: Famotidine/PF 20 mg/2ml Vial SLOW IVP SCH (08:08)
[2020-02-19] MEDS ORDERED: Ondansetron ODT 4 MG TAB PO PRN (10:48)
[2020-02-19] MEDS: Ondansetron PF 4 MG/2 ML Vial IVP PRN (11:16)
[2020-02-19] MEDS: Acetaminophen 325 MG TAB PO PRN (11:18)
--- NOTE | 2020-02-19 12:40 | MRI ---
MRI brain with and without gadolinium contrast HISTORY: Altered mental status. Metastatic disease. Lung cancer. FINDINGS: An enhancing 1.0 cm round mass at the posterior medial aspect of the right cerebellar hemis phere is surrounded by a small amount of vasogenic edema. Associated restricted diffusion. A round 1.4 cm enhancing mass with restricted diffusion is centered at the faust-white junction at the upper posterior right frontal lobe. Small amount of surrounding vasogenic edema. Minimal associated mass effect. Ventricles are unremarkable. Minimal chronic ischemic small vessel disease. IMPRESSION : Small intra-axial metastases of the right cerebellar hemisphere and right frontal lobe.
--- NOTE | 2020-02-19 13:01 | PDOC.HOSPP ---
- Subjective Encounter Date: 02/19/20 Encounter Time: 10:00 Subjective: Patient seen and examined for suspected Lung CA with mets. No new complaints. No overnight events - Objective Vital Signs & Weight: Vital Signs (12 hours) Temp Pulse Resp BP Pulse Ox 02/19/20 08:00 98.3 F 95 16 143/86 H 96 Weight Admit Weight 197 lb 4.8 oz Weight 198 lb 11.2 oz I&O: 02/18/20 02/19/20 02/20/20 06:59 06:59 06:59 Intake Total 780 3768 1196 Output Total 700 200 Balance 80 3768 996 Result Diagrams: 02/19/20 05:49 02/17/20 05:16 Radiology Reviewed by me: Yes (CT chest - reviewed) Hospitalist ROS - Review of Systems Cardiovascular: denies: chest pain, palpitations, orthopnea, paroxysmal noc. dyspnea, edema, light headedness, other Gastrointestinal: denies: nausea, vomiting, abdominal pain, diarrhea, constipation, melena, hematochezia, other - Medication Medications: Active Medications Generic Name Dose Route Start Last Admin Trade Name Freq PRN Reason Stop Dose Admin Carvedilol 3.125 mg 02/16/20 21:00 02/19/20 08:08 Coreg PO 3.125 mg BID RAJNI Administration Cholecalciferol 1,000 units 02/17/20 09:00 02/19/20 08:08 Vitamin D3 PO 1,000 units DAILY RAJNI Administration Enoxaparin Sodium 40 mg 02/17/20 09:00 02/19/20 08:08 Lovenox SC 40 mg 0900 RAJNI Administration Ondansetron HCl 4 mg 02/19/20 10:48 02/19/20 11:16 Zofran IVP 4 mg Q6H PRN Administration Nausea/Vomiting Sodium Chloride 10 ml 02/16/20 19:25 02/18/20 20:00 Flush - Normal Saline IVF 10 ml Q12HR PRN Administration Saline Flush Tramadol HCl 50 mg 02/17/20 09:13 02/19/20 08:07 Ultram PO 50 mg Q6H PRN Administration Moderate to Severe Pain (6-10) - Exam General Appearance: NAD Heart: RRR, no gallops Respiratory: no wheezes, no ronchi Gastrointestinal: non-tender, no guarding, no rigidity Extremities: no cyanosis, no clubbing Hosp A/P - Plan DVT proph w/lovenox, DVT proph w/SCDs Suspected Lung CA with metastasis R Pleural effusion due to above Abn LFTs due to mets Chronic low back pain HTN HLD PLAN: Await biopsy Await Brain MRI AM labs Ambulate Cont Coreg Cont other meds as above
[2020-02-19] MEDS: Famotidine 20 MG TAB PO SCH (20:28)
[2020-02-20] MEDS: Sodium Chloride 0.9% 1,000 ML IV SCH (01:46)
[2020-02-20 06:23] LABS: #Eosinphils 0.2 thou/uL (0.0-0.7); #Lymphocytes 2.2 thou/uL (1.20-3.40); #Monocytes 1.4 thou/uL (0.11-0.59); #Neutrophils 5.6 thou/uL (1.40-6.50); %Basophils 0.5 % (0.0-1.0); %Eosinophils 1.9 % (0.0-10.0); %Lymphocytes 23.5 % (21.0-51.0); %Monocytes 14.4 % (0.0-10.0); %Neutrophils 59.8 % (42.0-75.0); Hemoglobin 11.7 g/dL (14.0-18.0); Mean Corpuscular HGB CONC 31.5 g/dL (32.0-36.0); Mean Corpuscular Hemoglobin 27.4 pg (27.0-31.0); Mean Platelet Volume 9.1 fL (7.4-10.4); Platelet Count 213 thou/uL (130-400); RBC Distribution Width 18.5 % (11.5-14.5); Red Blood Cell (RBC) Count 4.28 mill/uL (4.70-6.10); White Blood Cell (WBC) Count 9.4 thou/uL (4.8-10.8)
[2020-02-20 06:45] LABS: ALT (SGPT) 113 U/L (8-55); AST (SGOT) 247 U/L (5-34); Albumin 2.3 g/dL (3.4-4.8); Alkaline Phosphatase 477 U/L (40-110); Anion Gap 12 mmol/L (10-20); BUN (Urea Nitrogen) 7 mg/dL (8.4-25.7); Bilirubin, Total 4.1 mg/dL (0.2-1.2); Calc. Creatinine Clearance 160 mL/min (70-130); Calcium 9.9 mg/dL (7.8-10.44); Carbon Dioxide 20 mmol/L (23-31); Chloride 106 mmol/L (98-107); Estimated GFR-MDRD Greater than 90; Globulin 4.8 g/dL (2.4-3.5); Glucose 61 mg/dL (80-115); Potassium 4.1 mmol/L (3.5-5.1); Protein, Total 7.1 g/dL (5.8-8.1); Sodium 134 mmol/L (136-145)
[2020-02-20] MEDS: Enoxaparin Sodium 40 MG/0.4 ML SYRINGE SC SCH (08:58)
[2020-02-20] MEDS: Famotidine 20 MG TAB PO SCH ×2 (08:58→19:44)
[2020-02-20] MEDS: Carvedilol 3.125 MG TAB PO SCH ×2 (08:58→19:44)
[2020-02-20] MEDS: Dextrose 5 %-0.45 % NaCl 1,000 ML IV SCH (09:00)
[2020-02-20] MEDS: traMADol HCl 50 MG TAB PO PRN ×2 (09:02→19:46)
[2020-02-20] MEDS: Simethicone Chewable 80 MG TAB PO PRN ×2 (11:45→19:46)
--- NOTE | 2020-02-20 15:55 | PDOC.HOSPP ---
- Subjective Encounter Date: 02/20/20 Encounter Time: 07:00 Subjective: Pt seen for followup re:metastatic lung cancer. c/o abdo bloating. - Objective Vital Signs & Weight: Vital Signs (12 hours) Temp Pulse Resp BP Pulse Ox 02/20/20 07:56 98.4 F 100 18 136/84 96 Weight Admit Weight 197 lb 4.8 oz Weight 198 lb 11.2 oz I&O: 02/19/20 02/20/20 02/21/20 06:59 06:59 06:59 Intake Total 3768 3766 360 Output Total 800 450 Balance 3768 2966 -90 Result Diagrams: 02/20/20 06:15 02/20/20 06:15 Additional Labs: Accuchecks 02/20/20 12:05 POC Glucose 107 Labs and MARs reviewed by la Hospitalist ROS - Review of Systems Cardiovascular: denies: chest pain, palpitations, orthopnea, paroxysmal noc. dyspnea, edema, light headedness Gastrointestinal: reports: abdominal pain. denies: nausea, vomiting, diarrhea, constipation, melena, hematochezia - Medication Medications: Active Medications Generic Name Dose Route Start Last Admin Trade Name Freq PRN Reason Stop Dose Admin Carvedilol 3.125 mg 02/16/20 21:00 02/20/20 08:58 Coreg PO 3.125 mg BID RAJNI Administration Cholecalciferol 1,000 units 02/17/20 09:00 02/20/20 08:58 Vitamin D3 PO 1,000 units DAILY RAJNI Administration Enoxaparin Sodium 40 mg 02/17/20 09:00 02/20/20 08:58 Lovenox SC 40 mg 0900 RAJNI Administration Famotidine 20 mg 02/19/20 21:00 02/20/20 08:58 Pepcid PO 20 mg BID RAJNI Administration Dextrose/Sodium Chloride 1,000 mls @ 50 mls/hr 02/20/20 07:45 02/20/20 09:00 D5 1/2 Ns IV 1,000 mls .Q20H RAJNI Administration Ondansetron HCl 4 mg 02/19/20 10:48 02/19/20 11:16 Zofran IVP 4 mg Q6H PRN Administration Nausea/Vomiting Simethicone 80 mg 02/20/20 11:23 02/20/20 11:45 Mylicon Chewable PO 80 mg PCHS PRN Administration Gas Pain Sodium Chloride 10 ml 02/16/20 19:25 02/18/20 20:00 Flush - Normal Saline IVF 10 ml Q12HR PRN Administration Saline Flush Tramadol HCl 50 mg 02/17/20 09:13 02/20/20 09:02 Ultram PO 50 mg Q6H PRN Administration Moderate to Severe Pain (6-10) - Exam General Appearance: awake alert Eye: scleral icterus ENT: normocephalic atraumatic Neck: supple, no thyromegaly Heart: RRR, no rubs Respiratory: CTAB, no rales Gastrointestinal: soft, non-tender, normal bowel sounds Extremities: no cyanosis Psychiatric: normal affect, normal behavior Hosp A/P - Plan - Assessment Suspected Lung CA with metastasis R Pleural effusion due to malignancy Abnormal LFTs due to liver mets Brain mets on MRI Chronic low back pain HTN Dyslipidemia - Plan Await pathology report Trial simethicone Ambulate pt Continue Coreg, monitor vital signs and titrate antihypertensives as needed DVT proph w/lovenox and SCDs
[2020-02-21] MEDS: Dextrose 5 %-0.45 % NaCl 1,000 ML IV SCH ×2 (04:59→23:45)
[2020-02-21] MEDS: Famotidine 20 MG TAB PO SCH ×2 (08:07→20:03)
[2020-02-21] MEDS: traMADol HCl 50 MG TAB PO PRN (08:07)
[2020-02-21] MEDS: Enoxaparin Sodium 40 MG/0.4 ML SYRINGE SC SCH (08:08)
[2020-02-21] MEDS: Carvedilol 3.125 MG TAB PO SCH ×2 (08:08→20:03)
[2020-02-21] MEDS ORDERED: Ketorolac Tromethamine 30 MG/ML VIAL IVP PRN (08:17)
[2020-02-21] MEDS ORDERED: Ketorolac Tromethamine 30 MG/ML VIAL IVP SCH (08:30)
[2020-02-21] MEDS: Lidocaine 5% Patch TD SCH (08:43)
[2020-02-21] MEDS: Simethicone Chewable 80 MG TAB PO PRN (11:27)
--- NOTE | 2020-02-21 11:39 | RAD ---
ABDOMEN 2 VIEWS: HISTORY: Right-side abdominal pain. FINDINGS: Abdominal gas pattern is nonspecific. No evidence for large or small bowel obstruction. Evidence fo r marked hepatomegaly and evidence for right pleural effusion and some nodular parenchymal changes in the right lower lobe. Evidence for lytic bone metastasis including the left L2 pedicle region and r ight sacrum. IMPRESSION: No evidence of bowel obstruction. Hepatomegaly with right pleural effusion and nodular parenchymal c hanges in the right lower lobe. Evidence for bone metastasis. POS: [facility]
--- NOTE | 2020-02-21 17:48 | PDOC.HOSPP ---
- Subjective Encounter Date: 02/21/20 Encounter Time: 07:00 Subjective: Pt seen for followup re:lung mass. c/o abdo bloating, RUQ pain. - Objective Vital Signs & Weight: Vital Signs (12 hours) Temp Pulse Resp BP Pulse Ox 02/21/20 15:25 90 18 97 02/21/20 08:00 98.7 F 97 18 160/82 H 95 Weight Admit Weight 197 lb 4.8 oz Weight 198 lb 11.2 oz I&O: 02/20/20 02/21/20 02/22/20 06:59 06:59 06:59 Intake Total 3766 600 Output Total 800 450 Balance 2966 150 Result Diagrams: 02/20/20 06:15 02/20/20 06:15 Additional Labs: Accuchecks 02/21/20 02/21/20 02/21/20 12:14 05:51 00:42 POC Glucose 123 H 86 89 02/20/20 18:23 POC Glucose 132 H Labs and MARs reviewed by de Hospitalist ROS - Review of Systems Gastrointestinal: reports: abdominal pain. denies: nausea, vomiting, diarrhea, constipation, melena, hematochezia Genitourinary: denies: dysuria, frequency, incontinence, hematuria, retention - Medication Medications: Active Medications Generic Name Dose Route Start Last Admin Trade Name Kenyatta PRN Reason Stop Dose Admin Carvedilol 3.125 mg 02/16/20 21:00 02/21/20 08:08 Coreg PO 3.125 mg BID RAJNI Administration Cholecalciferol 1,000 units 02/17/20 09:00 02/21/20 08:07 Vitamin D3 PO 1,000 units DAILY RAJNI Administration Enoxaparin Sodium 40 mg 02/17/20 09:00 02/21/20 08:08 Lovenox SC 40 mg 0900 RAJNI Administration Famotidine 20 mg 02/19/20 21:00 02/21/20 08:07 Pepcid PO 20 mg BID RAJNI Administration Dextrose/Sodium Chloride 1,000 mls @ 50 mls/hr 02/20/20 07:45 02/21/20 04:59 D5 1/2 Ns IV Not Given .Q20H RAJNI Lidocaine 1 patch 02/21/20 09:00 02/21/20 08:43 Lidoderm 5% Patch TD 1 patch DAILY RAJNI Administration Ondansetron HCl 4 mg 02/19/20 10:48 02/19/20 11:16 Zofran IVP 4 mg Q6H PRN Administration Nausea/Vomiting Simethicone 80 mg 02/20/20 11:23 02/21/20 11:27 Mylicon Chewable PO 80 mg PCHS PRN Administration Gas Pain Sodium Chloride 10 ml 02/16/20 19:25 02/18/20 20:00 Flush - Normal Saline IVF 10 ml Q12HR PRN Administration Saline Flush Tramadol HCl 50 mg 02/17/20 09:13 02/21/20 08:07 Ultram PO 50 mg Q6H PRN Administration Moderate to Severe Pain (6-10) - Exam General Appearance: awake alert Eye: anicteric sclera ENT: moist mucosa Neck: supple, symmetric Heart: RRR, no rubs Respiratory: CTAB Gastrointestinal: soft, normal bowel sounds, no guarding, no rigidity, tender to palpation Gastrointestinal - other findings: Mild RUQ tenderness Extremities: no cyanosis Psychiatric: normal affect, normal behavior Hosp A/P - Plan - Assessment Suspected Lung CA with metastasis RUQ pain, most likely due to kiver mets Abnormal LFTs due to liver mets Brain mets on MRI Chronic low back pain HTN Dyslipidemia - Plan Check abdo x-rays Awaiting pathology report Ambulate pt Continue Coreg DVT proph w/lovenox and SCDs
[2020-02-21] MEDS: Morphine 2 MG/ML SYRINGE SLOW IVP PRN (20:03)
[2020-02-21] MEDS: Lidocaine Patch Removal 1 EACH TOP SCH (21:00)
[2020-02-22] MEDS: Dextrose 5 %-0.45 % NaCl 1,000 ML IV SCH ×2 (01:31→21:34)
[2020-02-22] MEDS: traMADol HCl 50 MG TAB PO PRN (06:55)
[2020-02-22] MEDS: Morphine 2 MG/ML SYRINGE SLOW IVP PRN (07:41)
[2020-02-22] MEDS: Lidocaine 5% Patch TD SCH (07:48)
[2020-02-22] MEDS ORDERED: Fentanyl 100 MCG/2 ML VIAL SLOW IVP PRN (07:54)
[2020-02-22] MEDS ORDERED: Fentanyl 20 mcg/ml (100 ml CADD) IV PRN (09:39)
[2020-02-22] MEDS: Carvedilol 3.125 MG TAB PO SCH ×2 (09:42→20:19)
[2020-02-22] MEDS: Enoxaparin Sodium 40 MG/0.4 ML SYRINGE SC SCH (09:42)
[2020-02-22] MEDS: Famotidine 20 MG TAB PO SCH ×2 (09:42→20:19)
[2020-02-22] MEDS: traMADol HCl 50 MG TAB PO SCH ×3 (11:41→23:36)
--- NOTE | 2020-02-22 14:30 | PDOC.HOSPP ---
- Subjective Encounter Date: 02/22/20 Encounter Time: 07:00 Subjective: Pt seen for followup re: lung malignancy. c/o abdo pain (RUQ). - Objective Vital Signs & Weight: Vital Signs (12 hours) Temp Pulse Resp BP Pulse Ox 02/22/20 11:55 98.5 F 89 16 119/82 97 02/22/20 08:00 95 02/22/20 06:56 98.4 F 103 H 16 140/83 95 Weight Admit Weight 197 lb 4.8 oz Weight 198 lb 11.2 oz I&O: 02/21/20 02/22/20 02/23/20 06:59 06:59 06:59 Intake Total 600 2100 Output Total 450 Balance 150 2100 Result Diagrams: 02/20/20 06:15 02/20/20 06:15 Additional Labs: Accuchecks 02/22/20 02/22/20 06:23 01:23 POC Glucose 104 95 Labs and MARs reviewed by mi Hospitalist ROS - Review of Systems Cardiovascular: denies: chest pain, palpitations, orthopnea, paroxysmal noc. dyspnea, edema, light headedness Gastrointestinal: reports: abdominal pain. denies: nausea, vomiting, diarrhea, constipation, melena, hematochezia - Medication Medications: Active Medications Generic Name Dose Route Start Last Admin Trade Name Freq PRN Reason Stop Dose Admin Carvedilol 3.125 mg 02/16/20 21:00 02/22/20 09:42 Coreg PO 3.125 mg BID RAJNI Administration Cholecalciferol 1,000 units 02/17/20 09:00 02/22/20 09:42 Vitamin D3 PO 1,000 units DAILY RAJNI Administration Enoxaparin Sodium 40 mg 02/17/20 09:00 02/22/20 09:42 Lovenox SC 40 mg 0900 RAJNI Administration Famotidine 20 mg 02/19/20 21:00 02/22/20 09:42 Pepcid PO 20 mg BID RAJNI Administration Dextrose/Sodium Chloride 1,000 mls @ 50 mls/hr 02/20/20 07:45 02/22/20 01:31 D5 1/2 Ns IV 1,000 mls .Q20H RAJNI Administration Fentanyl Citrate 2,000 mcg/ 100 mls @ 0 mls/hr 02/22/20 09:39 02/22/20 10:58 Sodium Chloride IV 100 mls INF PRN Administration Pain As Directed Lidocaine 1 patch 02/21/20 09:00 02/22/20 07:48 Lidoderm 5% Patch TD 1 patch DAILY RAJNI Administration Miscellaneous Medication 1 each 02/21/20 21:00 02/21/20 21:00 Lidocaine Patch Removal TOP Not Given 2100 RAJNI Ondansetron HCl 4 mg 02/19/20 10:48 02/19/20 11:16 Zofran IVP 4 mg Q6H PRN Administration Nausea/Vomiting Simethicone 80 mg 02/20/20 11:23 02/21/20 11:27 Mylicon Chewable PO 80 mg PCHS PRN Administration Gas Pain Sodium Chloride 10 ml 02/16/20 19:25 02/18/20 20:00 Flush - Normal Saline IVF 10 ml Q12HR PRN Administration Saline Flush Tramadol HCl 100 mg 02/22/20 12:00 02/22/20 11:41 Ultram PO 100 mg Q6HR RAJNI Administration - Exam General Appearance: awake alert Eye: scleral icterus ENT: normocephalic atraumatic Neck: supple, no thyromegaly Heart: RRR Respiratory: CTAB Gastrointestinal: soft, normal bowel sounds Gastrointestinal - other findings: RUQ tenderness Skin: no rashes Psychiatric: normal behavior Hosp A/P - Plan - Assessment Metastatic lung cancer RUQ pain, most likely due to liver mets Abnormal LFTs due to liver mets Brain mets on MRI Chronic low back pain HTN Dyslipidemia - Plan 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 Consult pain management service. Ambulate pt Continue Coreg
[2020-02-22 14:40] VITALS: BMI 25.4
--- NOTE | 2020-02-22 14:45 | PDOC.MOPN ---
Interval History: discussed path results with patient and son Encouraged consideration of chemo as responds quickly to treatment if agrees, likely chemo cycle 1 here then outpatient treatment of brain mets Dicussed with Dr. Ray and Dr. Peralta. Dr. Ray will see patient tomorrow. - Vital Signs Vital Signs: Vital Signs (12 hours) Temp Pulse Resp BP Pulse Ox 02/22/20 11:55 98.5 F 89 16 119/82 97 02/22/20 08:00 95 02/22/20 06:56 98.4 F 103 H 16 140/83 95 Weight Admit Weight 197 lb 4.8 oz Weight 188 lb 1.6 oz - Labs Result Diagrams: 02/20/20 06:15 02/20/20 06:15 Lab results: Laboratory Results - last 24 hr 02/22/20 06:23: POC Glucose 104 02/22/20 01:23: POC Glucose 95
--- NOTE | 2020-02-22 15:57 | CON ---
DATE OF CONSULTATION: 02/22/2020 REASON FOR CONSULTATION: Mr. River is a 64-year-old gentleman, who has been diagnosed with brain metastasis from what clinically appears to be a stage IV, T2 N2 M1 lung carcinoma. HISTORY OF PRESENT ILLNESS: Mr. River apparently had a spot in his right lower lobe of his lung about one year ago. He had a PET scan at that time, which showed hypermetabolic activity in the right lower lobe lung mass. It is not clear to me whether further workup was done at that time. He recently presented to the emergency room with complaints of pain on the right side of the abdomen, increased shortness of breath, decreased appetite, and weight loss. He underwent COVID testing, which was negative. He had a CT angiogram, which showed a mass in the right lower lobe of the lung, it increased in size to 3.4 cm. There were hilar and mediastinal adenopathy. There were numerous lesions in the liver consistent with liver metastasis. There were numerous lesions in the bone consistent with bone metastasis. He was admitted to the hospital for further workup and evaluation. He underwent a CT-guided biopsy of bone lesion in the right SI joint area. The results of this are currently pending. He then had an MRI of the brain with results showing two contrast-enhancing lesions with a small surrounding vasogenic edema. One measured 1 cm and was in the right cerebellar hemisphere and the other measured 1.4 cm and was in the posterior right frontal lobe. There was minimal mass effect. I have subsequently been asked to see the patient because of his brain metastasis. Presently, the patient is a poor historian. He denies any headaches. He apparently had some vomiting a few days ago, but none recently. He mainly complains of pain in his right side since December. He also reports some increased shortness of breath and orthopnea since December. He has a dry cough. He does have difficulty lying flat. His appetite has been poor and he has been losing weight. He denies other areas of pain other than the right side of his abdomen. He voices no other complaints. PAST MEDICAL HISTORY: 1. Hypertension. 2. Hypercholesterolemia. 3. Status post appendectomy. 4. He denies other medical or surgical problems. MEDICATIONS: 1. Coreg. 2. Lovenox. 3. Pepcid. 4. Zofran p.r.n. ALLERGIES: NO KNOWN MEDICAL ALLERGIES. SOCIAL HISTORY: He has been living in [place], [place] by himself. His son is with him at his bedside. He has not smoked cigarettes for the past 7 years. Prior to that, he smoked 1 to 1-1/2 packs per day. He previously drank alcohol on a daily basis. FAMILY HISTORY: His mother is still living at age 91 with no history of cancer. His father at age 75 of cancer, the type of which is unknown to him. REVIEW OF SYSTEMS: Twelve system review of systems is otherwise negative. PHYSICAL EXAMINATION: VITAL SIGNS: Height is 6 feet, weight 198 pounds. Blood pressure is 140/83, pulse is 103, respirations 16, temperature is 98.4, O2 saturation is 95% on room air. CONSTITUTIONAL: He is alert and oriented, and looks ill in appearance. Karnofsky performance status is 60%. HEENT: Eyes, pupils are equal, round, and reactive to light. Extraocular movements are intact. ENT, Oral cavity and oropharynx normal without lesion or erythema. Palate elevates symmetrically. Gingiva is intact. NECK: Supple without cervical or supraclavicular adenopathy. No thyromegaly. Larynx midline. LUNGS: Breathing nonlabored. Clear to auscultation on the left. He has some decreased breath sounds in the right lower lobe. Otherwise clear. HEART: Slightly tachycardic without murmur. No lower extremity edema. LYMPHATIC: No axillary or inguinal adenopathy. ABDOMEN: Distended without rebound or guarding. There is fullness in the right upper quadrant. No other masses palpable. SKIN: Without rash or purpura. NEUROLOGIC: Cranial nerves 2 through 12 are grossly intact. Motor strength is 5/5 in both upper and lower extremities in all muscle groups tested. Reflexes are diminished, but symmetrical. Gait was not tested. RADIOLOGIC DATA: CT angiogram and MRI of the brain were both personally reviewed. His CT angiogram showed a mass in the right lower lobe measuring 3.4 cm. There is a small right pleural effusion. There are hilar and mediastinal adenopathy. There is some impingement on the right lower lobe bronchus. He has multiple areas of bone metastasis. There does not appear to be any areas of cord compression. The largest area bone metastasis is in the right side of the sacrum. He has numerous lesions in the liver consistent with metastatic disease in the liver. MRI of the brain shows two contrast-enhancing lesions. One is in the right posterior frontal lobe and measures 1.4 cm. The other is in the right cerebellar hemisphere measures 1 cm. There is a small amount of surrounding vasogenic edema, but no midline shift. LABORATORY DATA: CBC revealed a white blood cell count of 9400 with a hemoglobin of 11.7, hematocrit of 37.2, and platelet count of 213,000. Chemistry group showed a sodium of 134. Bilirubin was 4.1 with his AST 247 and ALT of 113. Alkaline phosphatase was 477. Albumin was 2.3. CEA was elevated at 511.72. ASSESSMENT: Mr. River is a 64-year-old gentleman with brain metastasis from a clinical diagnosis of a stage IV, T2 N2 M1 right lower lobe lung lesion. Pathology is currently pending. PLAN: I had a discussion today with Mr. River and his son regarding his potential diagnosis, prognosis, and treatment options. We are currently waiting on his pathology and will need to obtain the pathology before we can make final determinations on how best to proceed. He has 2 small brain metastases that I think are not very symptomatic. Most of his symptoms are coming from the disease in his lung and his liver. His elevated liver function tests are secondary to his hepatic metastasis. Hopefully, pathology which shows something that is treatable. His performance status is decreased. If his pathology shows something that is potentially not very treatable or if he was not a candidate for systemic therapy, then it may be more appropriate to consider something like hospice care. If his pathology does show something that is potentially treatable and he is able to have systemic therapy, then we could proceed with radiosurgery to his brain metastasis. The logistics of radiosurgery as well as the benefits and risks were discussed with him and his son. The treatment procedure was discussed. Side effects would include, but not be limited to skin reaction, fatigue, lower blood counts, hair loss which may be permanent, headache, nausea, vomiting, and small risk of damage to his normal brain. Time was taken to answer all of his questions regarding his treatment options. We will await the final pathology and then make a determination on how best to proceed. I will discuss the case with Medical Oncology once his final pathology is known. Thank you for this interesting consultation. Job ID: [id number]
[2020-02-22] MEDS: Ondansetron PF 4 MG/2 ML Vial IVP PRN (16:30)
[2020-02-22] MEDS: Lidocaine Patch Removal 1 EACH TOP SCH (20:22)
[2020-02-23 05:01] LABS: ALT (SGPT) 122 U/L (8-55); AST (SGOT) 287 U/L (5-34); Albumin 2.2 g/dL (3.4-4.8); Alkaline Phosphatase 491 U/L (40-110); Anion Gap 10 mmol/L (10-20); BUN (Urea Nitrogen) 8 mg/dL (8.4-25.7); Bilirubin, Total 5.8 mg/dL (0.2-1.2); Calc. Creatinine Clearance 129 mL/min (70-130); Calcium 11.2 mg/dL (7.8-10.44); Carbon Dioxide 26 mmol/L (23-31); Chloride 101 mmol/L (98-107); Estimated GFR-MDRD Greater than 90; Glucose 76 mg/dL (80-115); Potassium 4.2 mmol/L (3.5-5.1); Protein, Total 7.2 g/dL (5.8-8.1); Sodium 133 mmol/L (136-145)
[2020-02-23 05:52] LABS: Band 10 % (5-11); Eosinophils 1 % (0-10); Hemoglobin 11.6 g/dL (14.0-18.0); Lymphocytes 16 % (21-51); MDiff Complete? YES; Mean Corpuscular HGB CONC 31.3 g/dL (32.0-36.0); Mean Corpuscular Hemoglobin 27.3 pg (27.0-31.0); Mean Corpuscular Volume 87.2 fL (78.0-98.0); Mean Platelet Volume 8.5 fL (7.4-10.4); Monocytes 11 % (0-10); Neutrophil 62 % (42-75); Platelet Count 185 thou/uL (130-400); RBC Distribution Width 19.5 % (11.5-14.5); Red Blood Cell (RBC) Count 4.25 mill/uL (4.70-6.10); White Blood Cell (WBC) Count 8.4 thou/uL (4.8-10.8)
[2020-02-23] MEDS: traMADol HCl 50 MG TAB PO SCH (06:10)
[2020-02-23] MEDS: Famotidine 20 MG TAB PO SCH ×2 (09:23→20:26)
[2020-02-23] MEDS: Lidocaine 5% Patch TD SCH (09:23)
[2020-02-23] MEDS: Enoxaparin Sodium 40 MG/0.4 ML SYRINGE SC SCH (09:24)
[2020-02-23] MEDS: Carvedilol 3.125 MG TAB PO SCH ×2 (09:24→20:26)
--- NOTE | 2020-02-23 10:52 | PDOC.MOPN ---
Interval History: Pt cont to have pain, controlled with [employer] and not using very much. He is very somnolent. I discussed his disease status and treatment with chemotherapy and WBRT with him and his son over the phone. - Vital Signs Vital Signs: Vital Signs (12 hours) Temp Pulse Resp BP Pulse Ox 02/23/20 08:25 97.7 F 103 H 18 141/79 H 96 02/23/20 04:15 98.8 F 84 16 140/81 97 02/22/20 23:48 98.4 F 90 16 138/81 100 Weight Admit Weight 197 lb 4.8 oz Weight 188 lb 1.6 oz - Physical Exam General: Alert, Cooperative, No acute distress HEENT: EOMI Cardiovascular: Regular rate Neurological: Cranial nerves 3-12 NL Psych/Mental Status: Mood NL - Labs Result Diagrams: 02/23/20 04:13 02/23/20 04:13 Lab results: Laboratory Results - last 24 hr 02/23/20 04:13: WBC 8.4, RBC 4.25 L, Hgb 11.6 L, Hct 37.1 L, MCV 87.2, MCH 27.3 , MCHC 31.3 L, RDW 19.5 H, Plt Count 185, MPV 8.5, Neutrophils % (Manual) 62, Band Neuts % (Manual) 10, Lymphocytes % (Manual) 16 L, Monocytes % (Manual) 11 H , Eosinophils % (Manual) 1 02/23/20 04:13: Sodium 133 L, Potassium 4.2, Chloride 101, Carbon Dioxide 26, Anion Gap 10, BUN 8 L, Creatinine 0.68 L, Estimated GFR (MDRD) Greater than 90 , Glucose 76 L, Calcium 11.2 H, Total Bilirubin 5.8 H, AST 287 H, ALT 122 H, Alkaline Phosphatase 491 H, Serum Total Protein 7.2, Albumin 2.2 L, Globulin 5.0 H, Albumin/Globulin Ratio 0.4 L A/P - Problem (1) Small cell carcinoma Current Visit: Yes Code(s): C80.1 - MALIGNANT (PRIMARY) NEOPLASM, UNSPECIFIED Status: Acute - Plan Plan: Stage IV - ES-SCLC: liver, bone, brain mets mediport plan inpatient chemo with Carboplatin + VP16, add Tecentriq outpatient with C2 will plan WBRT after chemotherapy if he has good response
[2020-02-23] MEDS ORDERED: Naloxone HCl 0.4 mg/ml Vial ONE ×2 (12:02→12:07)
[2020-02-23] MEDS ORDERED: Naloxone HCl 0.4 mg/ml Vial IV SCH (12:15)
[2020-02-23] MEDS: Ondansetron PF 4 MG/2 ML Vial IVP PRN (13:27)
--- NOTE | 2020-02-23 13:37 | PDOC.HOSPP ---
- Subjective Encounter Date: 02/23/20 Encounter Time: 12:00 Subjective: Pt seen for followup re: lung cancer. Was lethargic initially. Administered two doses of Narcan with improvement. - Objective Vital Signs & Weight: Vital Signs (12 hours) Temp Pulse Resp BP Pulse Ox 02/23/20 12:53 97.4 F L 101 H 18 157/89 H 95 02/23/20 11:58 99.1 F 106 H 18 144/77 H 96 02/23/20 08:25 97.7 F 103 H 18 141/79 H 96 02/23/20 04:15 98.8 F 84 16 140/81 97 Weight Admit Weight 197 lb 4.8 oz Weight 188 lb 1.6 oz I&O: 02/22/20 02/23/20 02/24/20 06:59 06:59 06:59 Intake Total 2100 1200 600 Output Total 700 700 Balance 2100 500 -100 Result Diagrams: 02/23/20 04:13 02/23/20 04:13 Additional Labs: Labs and MARs reviewed by nm Hospitalist ROS - Review of Systems Cardiovascular: denies: chest pain, palpitations, orthopnea, paroxysmal noc. dyspnea, edema, light headedness Genitourinary: reports: retention. denies: dysuria, frequency, incontinence, hematuria Neurological: reports: other (lethargy). denies: weakness, numbness, incoordination, change in speech, confusion, seizures - Medication Medications: Active Medications Generic Name Dose Route Start Last Admin Trade Name Freq PRN Reason Stop Dose Admin Carvedilol 3.125 mg 02/16/20 21:00 02/23/20 09:24 Coreg PO 3.125 mg BID RAJIN Administration Cholecalciferol 1,000 units 02/17/20 09:00 02/23/20 09:23 Vitamin D3 PO 1,000 units DAILY RAJNI Administration Enoxaparin Sodium 40 mg 02/17/20 09:00 02/23/20 09:24 Lovenox SC 40 mg 0900 RAJNI Administration Famotidine 20 mg 02/19/20 21:00 02/23/20 09:23 Pepcid PO 20 mg BID RAJNI Administration Dextrose/Sodium Chloride 1,000 mls @ 50 mls/hr 02/20/20 07:45 02/22/20 21:34 D5 1/2 Ns IV 1,000 mls .Q20H RAJNI Administration Lidocaine 1 patch 02/21/20 09:00 02/23/20 09:23 Lidoderm 5% Patch TD 1 patch DAILY RAJNI Administration Miscellaneous Medication 1 each 02/21/20 21:00 02/22/20 20:22 Lidocaine Patch Removal TOP Not Given 2100 RAJNI Naloxone HCl 0.4 mg 02/23/20 12:15 02/23/20 12:12 Narcan IV 02/23/20 14:15 Not Given NOW RAJNI Ondansetron HCl 4 mg 02/19/20 10:48 02/23/20 13:27 Zofran IVP 4 mg Q6H PRN Administration Nausea/Vomiting Simethicone 80 mg 02/20/20 11:23 02/21/20 11:27 Mylicon Chewable PO 80 mg PCHS PRN Administration Gas Pain Sodium Chloride 10 ml 02/16/20 19:25 02/18/20 20:00 Flush - Normal Saline IVF 10 ml Q12HR PRN Administration Saline Flush - Exam General Appearance: awake alert Eye: anicteric sclera ENT: moist mucosa Neck: supple, symmetric Heart: RRR, no rubs Respiratory: CTAB Gastrointestinal: soft, non-tender Extremities: no cyanosis Psychiatric: lethargic Hosp A/P - Plan out of bed/ambulate - Assessment Metastatic lung cancer liver mets Narcotic-induced lethargy Brain mets on MRI Chronic low back pain HTN Dyslipidemia - Plan Pt has SCLC. SURGICAL ASST (fentanyl) discontinued, PRN Narcan Pt will need WBRT Continue Coreg
--- NOTE | 2020-02-23 14:53 | PDOC.PALPN ---
Palliative Progress Note - Subjective Lethargic, continues to complain of pain.Difficult for reliable ROS secondary to lethargy - Objective Vital Signs: Vital Signs - Most Recent Temp Pulse Resp BP Pulse Ox 97.4 F L 101 H 18 157/89 H 95 02/23/20 12:53 02/23/20 12:53 02/23/20 12:53 02/23/20 12:53 02/23/20 12:53 - Physical Exam Constitutional: NAD, ill appearing HEENT: EOMI, moist MMs Respiratory: diminished lung sound Cardiovascular: RRR Deviation from normal: Distended, soft, no guarding with palpation Musculoskeletal: no cyanosis, no clubbing, pulses present Neurology: moves all 4 limbs Skin: cap refill <2 seconds Deviation from normal: lethargic - Assessment (1) Palliative care encounter Code(s): Z51.5 - ENCOUNTER FOR PALLIATIVE CARE Current Visit: Yes Status: Acute (2) Abnormal LFTs Code(s): R94.5 - ABNORMAL RESULTS OF LIVER FUNCTION STUDIES Current Visit: Yes Status: Acute (3) Metastatic adenocarcinoma to liver Code(s): C78.7 - SECONDARY MALIG NEOPLASM OF LIVER AND INTRAHEPATIC BILE DUCT Current Visit: Yes Status: Acute (4) SOB (shortness of breath) on exertion Code(s): R06.02 - SHORTNESS OF BREATH Current Visit: Yes Status: Acute (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 Will add dexamethasone 4mg po qd with the consideration of increasing to BID or 8mg po Q AM to mitigate pain. Communicated with Dr Lua and Dr Ray. Please also refer to Nayan Jha RNexec. creative director notes in note section. [35] minutes spent on this encounter with >50% of the time in counseling and coordination of care. - ROS Non Response: due to mental status
[2020-02-23] MEDS: Dextrose 5 %-0.45 % NaCl 1,000 ML IV SCH (17:53)
[2020-02-23] MEDS: Simethicone Chewable 80 MG TAB PO PRN (20:27)
[2020-02-23] MEDS ORDERED: Bisacodyl 10 MG SUPP PR SCH (20:30)
[2020-02-23] MEDS: Lidocaine Patch Removal 1 EACH TOP SCH (21:12)
[2020-02-23] MEDS: Ketorolac Tromethamine 30 MG/ML VIAL IVP PRN (23:14)
[2020-02-24 05:10] LABS: ALT (SGPT) 111 U/L (8-55); AST (SGOT) 274 U/L (5-34); Albumin 2.1 g/dL (3.4-4.8); Alkaline Phosphatase 432 U/L (40-110); Anion Gap 13 mmol/L (10-20); BUN (Urea Nitrogen) 8 mg/dL (8.4-25.7); Bilirubin, Total 6.6 mg/dL (0.2-1.2); Calc. Creatinine Clearance 137 mL/min (70-130); Calcium 11.4 mg/dL (7.8-10.44); Carbon Dioxide 24 mmol/L (23-31); Chloride 100 mmol/L (98-107); Estimated GFR-MDRD Greater than 90; Globulin 4.9 g/dL (2.4-3.5); Glucose 85 mg/dL (80-115); Potassium 4.2 mmol/L (3.5-5.1); Sodium 133 mmol/L (136-145)
[2020-02-24 06:18] LABS: Band 4 % (5-11); Eosinophils 2 % (0-10); Hemoglobin 11.8 g/dL (14.0-18.0); Lymphocytes 24 % (21-51); MDiff Complete? YES; Mean Corpuscular HGB CONC 31.7 g/dL (32.0-36.0); Mean Corpuscular Hemoglobin 27.6 pg (27.0-31.0); Mean Corpuscular Volume 87.1 fL (78.0-98.0); Mean Platelet Volume 8.8 fL (7.4-10.4); Monocytes 10 % (0-10); Neutrophil 60 % (42-75); Platelet Count 179 thou/uL (130-400); Red Blood Cell (RBC) Count 4.26 mill/uL (4.70-6.10); White Blood Cell (WBC) Count 11.1 thou/uL (4.8-10.8)
[2020-02-24] MEDS ORDERED: Zoledronic Acid 4 MG in Sodium Chloride 0.9% 100 ML IVPB SCH (08:15)
[2020-02-24] MEDS: Lidocaine 5% Patch TD SCH (08:40)
[2020-02-24] MEDS: Enoxaparin Sodium 40 MG/0.4 ML SYRINGE SC SCH (08:40)
[2020-02-24] MEDS: Carvedilol 3.125 MG TAB PO SCH ×2 (08:40→20:03)
[2020-02-24] MEDS: Famotidine 20 MG TAB PO SCH ×2 (08:40→20:03)
[2020-02-24] MEDS: Dexamethasone 4 MG TAB PO SCH (08:40)
--- NOTE | 2020-02-24 08:42 | PDOC.MOPN ---
Interval History: Pt not feeling any better today. He received 2 doses of Narcan and is a little more alert. Talked with son at bedside. Plan chemo this afternoon or tomorrow morning. Mediport tomorrow. - Vital Signs Vital Signs: Vital Signs (12 hours) Temp Pulse Resp BP Pulse Ox 02/24/20 07:28 98.1 F 95 16 147/79 H 95 02/24/20 04:20 100 18 160/99 H 02/24/20 00:02 98.3 F 104 H 16 160/85 H 94 L Weight Admit Weight 197 lb 4.8 oz Weight 188 lb 1.6 oz - Physical Exam General: Alert, Cooperative, No acute distress Lungs: Normal air movement Cardiovascular: Regular rate Neurological: Cranial nerves 3-12 NL - Labs Result Diagrams: 02/24/20 04:26 02/24/20 04:26 Lab results: Laboratory Results - last 24 hr 02/24/20 04:26: WBC 11.1 H, RBC 4.26 L, Hgb 11.8 L, Hct 37.1 L, MCV 87.1, MCH 27.6, MCHC 31.7 L, RDW 20.0 H, Plt Count 179, MPV 8.8, Neutrophils % (Manual) 60 , Band Neuts % (Manual) 4 L, Lymphocytes % (Manual) 24, Monocytes % (Manual) 10 , Eosinophils % (Manual) 2 02/24/20 04:26: Sodium 133 L, Potassium 4.2, Chloride 100, Carbon Dioxide 24, Anion Gap 13, BUN 8 L, Creatinine 0.64 L, Estimated GFR (MDRD) Greater than 90 , Glucose 85, Calcium 11.4 H, Total Bilirubin 6.6 H, AST 274 H, ALT 111 H, Alkaline Phosphatase 432 H, Serum Total Protein 7.0, Albumin 2.1 L, Globulin 4.9 H, Albumin/Globulin Ratio 0.4 L A/P - Problem (1) Small cell carcinoma Current Visit: Yes Code(s): C80.1 - MALIGNANT (PRIMARY) NEOPLASM, UNSPECIFIED Status: Acute - Plan Plan: Mediport tomorrow Start Carboplatin + VP16 this afternoon or tomorrow Hypercalcemia - incresae IVF to 100 ml/hr, Zometa 4 mg IV x 1
[2020-02-24] MEDS: Dextrose 5 %-0.45 % NaCl 1,000 ML IV SCH ×2 (11:56→22:14)
--- NOTE | 2020-02-24 13:22 | PDOC.HOSPP ---
- Subjective Encounter Date: 02/24/20 Encounter Time: 07:00 Subjective: Pt seen for followup re: metastatic lung cancer. More alert today, denies pain. - Objective Vital Signs & Weight: Vital Signs (12 hours) Temp Pulse Resp BP Pulse Ox 02/24/20 11:55 97.7 F 92 16 155/87 H 97 02/24/20 07:28 98.1 F 95 16 147/79 H 95 02/24/20 04:20 100 18 160/99 H Weight Admit Weight 197 lb 4.8 oz Weight 188 lb 1.6 oz I&O: 02/23/20 02/24/20 02/25/20 06:59 06:59 06:59 Intake Total 1200 1500 600 Output Total 700 925 475 Balance 500 575 125 Result Diagrams: 02/24/20 04:26 02/24/20 04:26 Additional Labs: Labs and MARs reviewed by ri Hospitalist ROS - Review of Systems Cardiovascular: denies: chest pain, palpitations, orthopnea, paroxysmal noc. dyspnea, edema, light headedness Gastrointestinal: denies: nausea, vomiting, abdominal pain, diarrhea, constipation, melena, hematochezia - Medication Medications: Active Medications Generic Name Dose Route Start Last Admin Trade Name Freq PRN Reason Stop Dose Admin Carvedilol 3.125 mg 02/16/20 21:00 02/24/20 08:40 Coreg PO 3.125 mg BID RAJNI Administration Cholecalciferol 1,000 units 02/17/20 09:00 02/24/20 08:40 Vitamin D3 PO 1,000 units DAILY RAJNI Administration Dexamethasone 4 mg 02/24/20 08:00 02/24/20 08:40 Decadron PO 4 mg QAM-WM RAJNI Administration Enoxaparin Sodium 40 mg 02/17/20 09:00 02/24/20 08:40 Lovenox SC 40 mg 0900 RAJNI Administration Famotidine 20 mg 02/19/20 21:00 02/24/20 08:40 Pepcid PO 20 mg BID RAJNI Administration Dextrose/Sodium Chloride 1,000 mls @ 100 mls/hr 02/20/20 07:45 02/24/20 11:56 D5 1/2 Ns IV 1,000 mls .Q10H RAJNI Administration Ketorolac Tromethamine 15 mg 02/23/20 17:53 02/23/20 23:14 Toradol IVP 02/28/20 17:54 15 mg Q6H PRN Administration Pain Lidocaine 1 patch 02/21/20 09:00 02/24/20 08:40 Lidoderm 5% Patch TD 1 patch DAILY RAJNI Administration Miscellaneous Medication 1 each 02/21/20 21:00 02/23/20 21:12 Lidocaine Patch Removal TOP Not Given 2100 RAJNI Ondansetron HCl 4 mg 02/19/20 10:48 02/23/20 13:27 Zofran IVP 4 mg Q6H PRN Administration Nausea/Vomiting Simethicone 80 mg 02/20/20 11:23 02/23/20 20:27 Mylicon Chewable PO 80 mg PCHS PRN Administration Gas Pain Sodium Chloride 10 ml 02/16/20 19:25 02/23/20 20:30 Flush - Normal Saline IVF 10 ml Q12HR PRN Administration Saline Flush - Exam General Appearance: awake alert Eye: scleral icterus ENT: moist mucosa Neck: supple Heart: RRR Respiratory: CTAB Gastrointestinal: soft, normal bowel sounds Psychiatric: normal affect, normal behavior Hosp A/P - Plan PT/OT, out of bed/ambulate - Assessment Metastatic lung cancer liver mets Brain mets Chronic low back pain HTN Dyslipidemia Narcotic-induced lethargy, resolved - Plan Chemo for SCLC, to start tomorrow. Pt will need WBRT for brain mets Continue Coreg
--- NOTE | 2020-02-24 14:18 | CON ---
DATE OF CONSULTATION: 02/24/2020 CHIEF COMPLAINT: Metastatic lung cancer. HISTORY OF PRESENT ILLNESS: This is a 64-year-old male who was recently diagnosed with metastatic lung cancer. I have been consulted for MediPort placement to facilitate chemotherapy. The patient himself is a poor historian secondary to his underlying issues. MEDICAL HISTORY: Includes: 1. Hypertension. 2. Hypercholesteremia. SURGICAL HISTORY: Appendectomy. MEDICATIONS: Taken daily: 1. Coreg. 2. Pepcid. 3. Zofran. ALLERGIES: NO KNOWN DRUG ALLERGIES. SOCIAL HISTORY: Lives in [place]. Previous smoker. Previous alcohol. No other drugs. REVIEW OF SYSTEMS: Ten-system review of systems is otherwise negative as described above. PHYSICAL EXAMINATION: HEENT: Sclerae are anicteric. Oropharynx clear. NECK: No lymphadenopathy. CHEST: Coarse breath sounds bilaterally. HEART: Regular rate. ABDOMEN: Soft and nontender. ASSESSMENT: Metastatic lung cancer. PLAN: Tunnel central line with subcutaneous port (MediPort). Risks, benefits, and alternatives discussed. His son gave consent. We will do this tomorrow. Job ID: [id number]
[2020-02-24] MEDS: Ketorolac Tromethamine 30 MG/ML VIAL IVP PRN (16:23)
[2020-02-24] MEDS: traMADol HCl 50 MG TAB PO PRN (20:00)
[2020-02-24] MEDS: Lidocaine Patch Removal 1 EACH TOP SCH (20:04)
[2020-02-24] MEDS ORDERED: Ibuprofen 200 MG TAB PO SCH (22:00)
[2020-02-25 04:47] LABS: Band 9 % (5-11); Hemoglobin 11.8 g/dL (14.0-18.0); Lymphocytes 20 % (21-51); MDiff Complete? YES; Mean Corpuscular HGB CONC 31.4 g/dL (32.0-36.0); Mean Corpuscular Hemoglobin 27.6 pg (27.0-31.0); Mean Corpuscular Volume 87.8 fL (78.0-98.0); Mean Platelet Volume 8.8 fL (7.4-10.4); Monocytes 10 % (0-10); Neutrophil 61 % (42-75); Platelet Count 191 thou/uL (130-400); Platelet Morphology Comment Appears Adequate; RBC Distribution Width 19.9 % (11.5-14.5); Red Blood Cell (RBC) Count 4.29 mill/uL (4.70-6.10); White Blood Cell (WBC) Count 12.8 thou/uL (4.8-10.8)
[2020-02-25 04:49] LABS: ALT (SGPT) 119 U/L (8-55); AST (SGOT) 294 U/L (5-34); Albumin 2.2 g/dL (3.4-4.8); Alkaline Phosphatase 430 U/L (40-110); Anion Gap 13 mmol/L (10-20); BUN (Urea Nitrogen) 7 mg/dL (8.4-25.7); Bilirubin, Total 6.8 mg/dL (0.2-1.2); Calc. Creatinine Clearance 131 mL/min (70-130); Calcium 11.1 mg/dL (7.8-10.44); Carbon Dioxide 23 mmol/L (23-31); Chloride 99 mmol/L (98-107); Estimated GFR-MDRD Greater than 90; Globulin 5.1 g/dL (2.4-3.5); Glucose 123 mg/dL (80-115); Protein, Total 7.3 g/dL (5.8-8.1); Sodium 131 mmol/L (136-145)
[2020-02-25] MEDS: Dexamethasone 4 MG TAB PO SCH (09:01)
[2020-02-25] MEDS: Lidocaine 5% Patch TD SCH (09:01)
[2020-02-25] MEDS: Famotidine 20 MG TAB PO SCH ×2 (09:02→19:47)
[2020-02-25] MEDS: Carvedilol 3.125 MG TAB PO SCH ×2 (09:02→19:48)
[2020-02-25] MEDS: Dextrose 5 %-0.45 % NaCl 1,000 ML IV SCH ×2 (09:02→19:48)
--- NOTE | 2020-02-25 09:53 | PDOC.PALPN ---
Palliative Progress Note - Subjective Awake, denies pain at time of current assessment. Son at bedside, to have mediport placed today. NPO for procedure, denies nausea and states he ate well yesterday - Objective Vital Signs: Vital Signs - Most Recent Temp Pulse Resp BP Pulse Ox 98.1 F 99 18 169/86 H 96 02/25/20 08:00 02/25/20 08:00 02/25/20 08:00 02/25/20 08:00 02/25/20 08:00 - Physical Exam Constitutional: ill appearing HEENT: EOMI, moist MMs Respiratory: unlabored breathing Cardiovascular: RRR Deviation from normal: Distended, tympani on percussion Genitourinary: continent Musculoskeletal: no clubbing, diffuse muscle atrophy Neurology: moves all 4 limbs Skin: cap refill <2 seconds, no lesions, no rash Psychiatric: A&O x 3 - Assessment (1) Palliative care encounter Code(s): Z51.5 - ENCOUNTER FOR PALLIATIVE CARE Current Visit: Yes Status: Acute (2) Abnormal LFTs Code(s): R94.5 - ABNORMAL RESULTS OF LIVER FUNCTION STUDIES Current Visit: Yes Status: Acute (3) Metastatic adenocarcinoma to liver Code(s): C78.7 - SECONDARY MALIG NEOPLASM OF LIVER AND INTRAHEPATIC BILE DUCT Current Visit: Yes Status: Acute (4) SOB (shortness of breath) on exertion Code(s): R06.02 - SHORTNESS OF BREATH Current Visit: Yes Status: Acute (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 Consideration to increase with evidence of increase in pain. Patient to have Mediport today, will revisit specifics of Advance Directives after procedure when patient is more alert and son also present. Patient currently willing to proceed with chemotherapy Palliative Care to continue to assist in Goal of Care and meaningful discharge Communicated with Dr Lua [30] minutes spent on this encounter with >50% of the time in counseling and coordination of care. - ROS Constitutional: alert, weakness ENT: alteration in dentition, other (Negative for congestion, throat irritation) Respiratory: other (Negative for cough) Gastrointestinal: bloating Musculoskeletal: other (Negative for pain at time of assessemnt)
[2020-02-25] MEDS ORDERED: Fentanyl 100 MCG/2 ML VIAL ONE (10:01)
[2020-02-25] MEDS ORDERED: Midazolam HCl 2 mg/2 ml Vial ONE (10:01)
[2020-02-25] MEDS ORDERED: Propofol 500 MG/50 ML VIAL ONE (10:01)
[2020-02-25] MEDS ORDERED: Bupivacaine 0.25% HCL 30 ML VIAL ONE (10:33)
[2020-02-25] MEDS ORDERED: Lidocaine 1% w/Epinephrine 1:100K 20 ML VIAL ONE (10:33)
[2020-02-25] MEDS ORDERED: Ondansetron HCl/PF 4 MG/2 ML Vial IVP PRN (11:41)
[2020-02-25] MEDS ORDERED: CARBOplatin 750 MG in Sodium Chloride 0.9% 250 ML 250 ML IVPB SCH (12:45)
[2020-02-25] MEDS ORDERED: Palonosetron HCl 0.25 MG in Sodium Chloride 0.9% 50 ML IVPB SCH (12:45)
[2020-02-25 13:26] LABS: Hemoglobin 11.7 g/dL (14.0-18.0); Mean Corpuscular HGB CONC 31.8 g/dL (32.0-36.0); Mean Corpuscular Hemoglobin 27.7 pg (27.0-31.0); Mean Corpuscular Volume 87.3 fL (78.0-98.0); Mean Platelet Volume 8.2 fL (7.4-10.4); Platelet Count 218 thou/uL (130-400); Red Blood Cell (RBC) Count 4.22 mill/uL (4.70-6.10); White Blood Cell (WBC) Count 14.8 thou/uL (4.8-10.8)
[2020-02-25 13:48] LABS: ALT (SGPT) 124 U/L (8-55); AST (SGOT) 314 U/L (5-34); Albumin 2.1 g/dL (3.4-4.8); Alkaline Phosphatase 433 U/L (40-110); Anion Gap 12 mmol/L (10-20); BUN (Urea Nitrogen) 7 mg/dL (8.4-25.7); Bilirubin, Total 6.9 mg/dL (0.2-1.2); Calc. Creatinine Clearance 137 mL/min (70-130); Calcium 10.9 mg/dL (7.8-10.44); Carbon Dioxide 25 mmol/L (23-31); Chloride 100 mmol/L (98-107); Estimated GFR-MDRD Greater than 90; Globulin 5.1 g/dL (2.4-3.5); Glucose 95 mg/dL (80-115); Potassium 4.1 mmol/L (3.5-5.1); Protein, Total 7.2 g/dL (5.8-8.1); Sodium 133 mmol/L (136-145); Uric Acid 4.9 mg/dL (3.5-7.2)
[2020-02-25 13:55] LABS: Anisocytosis SLIGHT = 6-15 cells (100X) (0-5/hpf); Band 8 % (5-11); Lymphocytes 7 % (21-51); MDiff Complete? YES; Monocytes 7 % (0-10); Neutrophil 78 % (42-75); Platelet Morphology Comment Appears Adequate; Polychromasia SLIGHT = 2-3 cells (100X) (0-2/hpf); Target Cells SLIGHT = 2-5 cells (100X) (0-1/hpf); Vacuoles SLIGHT
[2020-02-25 14:07] LABS: T4 5.7 ug/dL (4.87-11.72); Thyroid Stimulating Hormone 1.4796 uIU/mL (0.35-4.94)
--- NOTE | 2020-02-25 14:38 | PDOC.MOPN ---
Interval History: sleepy today, had mediport this am. Son in room - Vital Signs Vital Signs: Vital Signs (12 hours) Temp Pulse Resp BP Pulse Ox 02/25/20 12:00 97.6 F 93 16 171/80 H 97 02/25/20 08:00 98.1 F 99 18 169/86 H 96 Weight Admit Weight 197 lb 4.8 oz Weight 188 lb - Physical Exam General: No acute distress Lungs: Clear to auscultation Cardiovascular: Regular rate Abdomen: Normal bowel sounds Neurological: Normal speech - Labs Result Diagrams: 02/25/20 13:00 02/25/20 13:00 Lab results: Laboratory Results - last 24 hr 02/25/20 13:00: Sodium 133 L, Potassium 4.1, Chloride 100, Carbon Dioxide 25, Anion Gap 12, BUN 7 L, Creatinine 0.64 L, Estimated GFR (MDRD) Greater than 90 , Glucose 95, Uric Acid 4.9, Calcium 10.9 H, Total Bilirubin 6.9 H, AST 314 H, ALT 124 H, Alkaline Phosphatase 433 H, Serum Total Protein 7.2, Albumin 2.1 L, Globulin 5.1 H, Albumin/Globulin Ratio 0.4 L 02/25/20 13:00: WBC 14.8 H, RBC 4.22 L, Hgb 11.7 L, Hct 36.9 L, MCV 87.3, MCH 27.7, MCHC 31.8 L, RDW 20.0 H, Plt Count 218, MPV 8.2, Neutrophils % (Manual) 78 H, Band Neuts % (Manual) 8, Lymphocytes % (Manual) 7 L, Monocytes % (Manual) 7, Lymphocytes # Not Reportable, WBC Morphology SLIGHT, Plt Morphology Comment Appears Adequate, Polychromasia SLIGHT = 2-3 cells, Anisocytosis SLIGHT = 6-15 cells, Target Cells SLIGHT = 2-5 cells 02/25/20 13:00: Thyroxine (T4) 5.7, TSH 3rd Generation 1.4796 02/25/20 03:50: WBC 12.8 H, RBC 4.29 L, Hgb 11.8 L, Hct 37.7 L, MCV 87.8, MCH 27.6, MCHC 31.4 L, RDW 19.9 H, Plt Count 191, MPV 8.8, Neutrophils % (Manual) 61 , Band Neuts % (Manual) 9, Lymphocytes % (Manual) 20 L, Monocytes % (Manual) 10 , Plt Morphology Comment Appears Adequate 02/25/20 03:50: Sodium 131 L, Potassium 4.0, Chloride 99, Carbon Dioxide 23, Anion Gap 13, BUN 7 L, Creatinine 0.67 L, Estimated GFR (MDRD) Greater than 90 , Glucose 123 H, Calcium 11.1 H, Total Bilirubin 6.8 H, AST 294 H, ALT 119 H, Alkaline Phosphatase 430 H, Serum Total Protein 7.3, Albumin 2.2 L, Globulin 5.1 H, Albumin/Globulin Ratio 0.4 L Status: lab reviewed by me A/P - Problem (1) Abnormal LFTs Current Visit: Yes Code(s): R94.5 - ABNORMAL RESULTS OF LIVER FUNCTION STUDIES Status: Acute (2) Small cell carcinoma Current Visit: Yes Code(s): C80.1 - MALIGNANT (PRIMARY) NEOPLASM, UNSPECIFIED Status: Acute (3) Spine metastasis Current Visit: Yes Code(s): C79.51 - SECONDARY MALIGNANT NEOPLASM OF BONE Status: Acute - Plan Plan: begin Carboplatin/Etoposide today Fulphila on Friday continue steroids for brain mets IV for hypercalcemia daily labs Likely need to go to Rehab next week
--- NOTE | 2020-02-25 14:46 | OP ---
DATE OF PROCEDURE: 02/25/2020 PREOPERATIVE DIAGNOSIS: Lung cancer. POSTOPERATIVE DIAGNOSIS: Lung cancer. PROCEDURE PERFORMED: Tunneled central line with subcutaneous port (MediPort CT injectable). ANESTHESIA: General. ESTIMATED BLOOD LOSS: Minimal. COMPLICATIONS: None. SPECIMENS: None. FINDINGS: The tip of the catheter at the atriocaval junction. DESCRIPTION OF PROCEDURE: The patient was taken to the operating room and laid supine on the operating room table. After general anesthetic was obtained, bilateral neck and chest were prepped and draped in a sterile fashion. Local anesthetic was infiltrated over the right internal jugular vein. Internal jugular vein was cannulated using a 22-gauge Finder needle followed by Seldinger needle. Wire was passed into the superior vena cava under fluoro guidance. Dilator and wire were removed. The end of the catheter sewed into the sheath as the sheath was peeled away. The tip of the catheter was at the atriocaval junction. The MediPort tubing cut to fit the MediPort at the lower incision and connected to the MediPort, which was sewn to the chest wall in the subcutaneous pocket using Prolene. There was more bleeding than usual at the neck small incision. There was a vein just underneath the skin. For this reason, an additional 3-0 Vicryl was used to oversew the subcutaneous tissues and then the skin at both sites was closed using 4-0 Monocryl and Dermabond. The MediPort flushes and draws blood without difficulties, flushed with a saline flush. The patient was sent to Recovery in stable condition. All instrument counts, needle counts, and lap counts were correct. Job ID: [id number]
--- NOTE | 2020-02-25 15:01 | PDOC.HOSPP ---
- Subjective Encounter Date: 02/25/20 Encounter Time: 07:40 Subjective: Pt seen for followup for met lung CA. States he feels okay. - Objective Vital Signs & Weight: Vital Signs (12 hours) Temp Pulse Resp BP Pulse Ox 02/25/20 12:00 97.6 F 93 16 171/80 H 97 02/25/20 08:00 98.1 F 99 18 169/86 H 96 Weight Admit Weight 197 lb 4.8 oz Weight 188 lb I&O: 02/24/20 02/25/20 02/26/20 06:59 06:59 06:59 Intake Total 1500 2011 1300 Output Total 925 725 900 Balance 575 1287 400 Result Diagrams: 02/25/20 13:00 02/25/20 13:00 Additional Labs: Labs and MARs reviewed by hi Hospitalist ROS - Review of Systems Gastrointestinal: reports: other (abdo distention). denies: nausea, vomiting, abdominal pain, diarrhea, constipation, melena, hematochezia Genitourinary: denies: dysuria, frequency, incontinence, hematuria, retention - Medication Medications: Active Medications Generic Name Dose Route Start Last Admin Trade Name Freq PRN Reason Stop Dose Admin Carvedilol 3.125 mg 02/16/20 21:00 02/25/20 09:02 Coreg PO 3.125 mg BID RAJNI Administration Cholecalciferol 1,000 units 02/17/20 09:00 02/25/20 09:02 Vitamin D3 PO 1,000 units DAILY RAJNI Administration Dexamethasone 4 mg 02/24/20 08:00 02/25/20 09:01 Decadron PO 4 mg QAM-WM RAJNI Administration Famotidine 20 mg 02/19/20 21:00 02/25/20 09:02 Pepcid PO 20 mg BID RAJNI Administration Dextrose/Sodium Chloride 1,000 mls @ 100 mls/hr 02/20/20 07:45 02/25/20 09:02 D5 1/2 Ns IV 1,000 mls .Q10H RAJNI Administration Ketorolac Tromethamine 15 mg 02/23/20 17:53 02/24/20 16:23 Toradol IVP 02/28/20 17:54 15 mg Q6H PRN Administration Pain Lidocaine 1 patch 02/21/20 09:00 02/25/20 09:01 Lidoderm 5% Patch TD 1 patch DAILY RAJNI Administration Miscellaneous Medication 1 each 02/21/20 21:00 02/24/20 20:04 Lidocaine Patch Removal TOP Not Given 2100 RAJNI Ondansetron HCl 4 mg 02/19/20 10:48 02/23/20 13:27 Zofran IVP 4 mg Q6H PRN Administration Nausea/Vomiting Simethicone 80 mg 02/20/20 11:23 02/23/20 20:27 Mylicon Chewable PO 80 mg PCHS PRN Administration Gas Pain Sodium Chloride 10 ml 02/16/20 19:25 02/23/20 20:30 Flush - Normal Saline IVF 10 ml Q12HR PRN Administration Saline Flush Tramadol HCl 50 mg 02/23/20 18:01 02/24/20 20:00 Ultram PO 50 mg Q6H PRN Administration Pain - Exam Eye: anicteric sclera ENT: moist mucosa Neck: supple Heart: RRR Respiratory: CTAB, normal chest expansion Gastrointestinal: soft, non-tender, normal bowel sounds, distended Psychiatric: normal affect, normal behavior Hosp A/P - Plan - Assessment Metastatic lung cancer Brain mets liver mets HTN Chronic low back pain Dyslipidemia Narcotic-induced lethargy, resolved - Plan MediPort placement today. Chemotherapy today. Rad Onc following re; brain metastases.
--- NOTE | 2020-02-25 15:06 | RAD ---
FRONTAL RADIOGRAPH CHEST: 02/25/20 COMPARISON: 02/16/20. HISTORY: Evaluate chest following placement of a Port-A-Cath. FINDINGS: A CT injectable right sided Port-A-Cath is present, distal tip overlying the cavoatrial junction. There is no pneumothorax seen on either side. There is mild increased linear density in the medial le ft base which may represent infiltrate or volume loss. When compared to the 02/16/20 examination there is worsening perihilar and right basilar opacity which is likely on the basis of right hilar and right basilar malignancy when compared to prior CT perform ed 02/16/20. Superimposed acute infiltrate or volume loss within the right perihilar region and right lung base cannot be excluded. IMPRESSION: Right sided Port-A-Cath as above. Increased density in the right base and right hilar region consiste nt with malignancy. Superimposed volume loss or infiltrate cannot be excluded. POS: MICHEAL
[2020-02-25] MEDS ORDERED: PROPOFOL 200 MG/20 ML VIAL ONE (15:15)
[2020-02-25] MEDS ORDERED: Ondansetron PF 4 MG/2 ML Vial ONE (15:15)
[2020-02-25] MEDS: Etoposide 200 MG in Sodium Chloride 0.9% 500 ML IVPB SCH (16:05)
--- NOTE | 2020-02-25 16:13 | PRG ---
DATE OF SERVICE: 02/25/2020 SUBJECTIVE: Mr. River is scheduled to start his chemotherapy today. He has no new complaints at this time. OBJECTIVE: VITAL SIGNS: Height 6 feet, weight 188 pounds. Blood pressure is 171/80, pulse is 93, respirations are 16, temperature is 97.6, O2 saturation is 97%. GENERAL: He is alert and oriented and in no apparent distress. Karnofsky performance status remains decreased at 50%. Remainder of physical exam was not performed. 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 ASSESSMENT: Mr. 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 He has had hypercalcemia and elevated liver function tests from his disease. His performance status is decreased. This is primarily because of his liver and bone metastasis as well as his local disease in his lung rather than his brain metastasis. I do think his brain metastasis are asymptomatic at this time. PLAN: His biggest problem is his systemic burden at this time with his liver and bone metastasis, as well as his disease in his lung. He is going to have chemotherapy initiated today. I am in agreement with that. Hopefully, his brain metastasis will respond to the chemotherapy. After his chemotherapy may need some sort of rehab, we will follow his brain metastasis carefully and may plan for radiosurgery sometime when he is between cycles of his chemotherapy. I would likely plan to see him again as an outpatient in about 1 months' time and we will probably repeat an MRI around that time to see how his disease is responding. If his performance status improves, then we can consider possibly treating him with radiosurgery. We will see him again as an outpatient. Job ID: [id number]
[2020-02-25] MEDS: Lidocaine Patch Removal 1 EACH TOP SCH (19:51)
[2020-02-26 03:37] LABS: #Lymphocytes 1.4 thou/uL (1.20-3.40); #Monocytes 1.3 thou/uL (0.11-0.59); #Neutrophils 8.8 thou/uL (1.40-6.50); %Basophils 0.1 % (0.0-1.0); %Lymphocytes 12.1 % (21.0-51.0); %Monocytes 11.6 % (0.0-10.0); %Neutrophils 76.1 % (42.0-75.0); Hemoglobin 11.1 g/dL (14.0-18.0); Mean Corpuscular HGB CONC 32.3 g/dL (32.0-36.0); Mean Corpuscular Volume 86.8 fL (78.0-98.0); Mean Platelet Volume 7.8 fL (7.4-10.4); Platelet Count 190 thou/uL (130-400); RBC Distribution Width 20.2 % (11.5-14.5); Red Blood Cell (RBC) Count 3.95 mill/uL (4.70-6.10); White Blood Cell (WBC) Count 11.5 thou/uL (4.8-10.8)
[2020-02-26 03:56] LABS: ALT (SGPT) 134 U/L (8-55); AST (SGOT) 356 U/L (5-34); Alkaline Phosphatase 429 U/L (40-110); Anion Gap 14 mmol/L (10-20); BUN (Urea Nitrogen) 10 mg/dL (8.4-25.7); Bilirubin, Total 6.8 mg/dL (0.2-1.2); Calc. Creatinine Clearance 131 mL/min (70-130); Calcium 9.8 mg/dL (7.8-10.44); Carbon Dioxide 23 mmol/L (23-31); Chloride 101 mmol/L (98-107); Estimated GFR-MDRD Greater than 90; Globulin 5.1 g/dL (2.4-3.5); Glucose 116 mg/dL (80-115); Potassium 4.3 mmol/L (3.5-5.1); Protein, Total 7.1 g/dL (5.8-8.1); Sodium 134 mmol/L (136-145)
[2020-02-26] MEDS: Famotidine 20 MG TAB PO SCH ×2 (08:16→19:47)
[2020-02-26] MEDS: Dexamethasone 4 MG TAB PO SCH (08:16)
[2020-02-26] MEDS: Carvedilol 3.125 MG TAB PO SCH ×2 (08:16→19:46)
[2020-02-26] MEDS: Lidocaine 5% Patch TD SCH (08:17)
--- NOTE | 2020-02-26 10:08 | PRG ---
DATE OF SERVICE: 02/26/2020 Postop day #1 MediPort. SUBJECTIVE: Mr. River is doing well. He has no complaints. Minimal swelling. Chest x-ray showed good placement. ASSESSMENT: Postop day #1 MediPort placement for metastatic lung cancer. PLAN: We will follow on as needed basis. He can follow up with me for MediPort removal at a later date or if there are any questions or concerns about the wounds. Job ID: [id number]
[2020-02-26] MEDS: Dextrose 5 %-0.45 % NaCl 1,000 ML IV SCH ×2 (16:25→23:21)
[2020-02-26] MEDS: Etoposide 200 MG in Sodium Chloride 0.9% 500 ML IVPB SCH (16:25)
--- NOTE | 2020-02-26 17:31 | PDOC.HOSPP ---
- Subjective Encounter Date: 02/26/20 Encounter Time: 07:20 Subjective: Pt seen for followup re: lung cancer with mets. No complaints. - Objective Vital Signs & Weight: Vital Signs (12 hours) Temp Pulse Resp BP Pulse Ox 02/26/20 16:15 97.7 F 101 H 16 167/93 H 95 02/26/20 07:01 97.4 F L 93 16 167/95 H 96 Weight Admit Weight 197 lb 4.8 oz Weight 188 lb I&O: 02/25/20 02/26/20 02/27/20 06:59 06:59 06:59 Intake Total 2011 5000 Output Total 725 1800 Balance 1287 3200 Result Diagrams: 02/26/20 03:24 02/26/20 03:24 Additional Labs: Labs and MARs reviewed by wy Hospitalist ROS - Review of Systems Cardiovascular: denies: chest pain, palpitations, orthopnea, paroxysmal noc. dyspnea, edema, light headedness Gastrointestinal: denies: nausea, vomiting, abdominal pain, diarrhea, constipation, melena, hematochezia - Medication Medications: Active Medications Generic Name Dose Route Start Last Admin Trade Name Freq PRN Reason Stop Dose Admin Carvedilol 3.125 mg 02/16/20 21:00 02/26/20 08:16 Coreg PO 3.125 mg BID RAJNI Administration Cholecalciferol 1,000 units 02/17/20 09:00 02/26/20 08:16 Vitamin D3 PO 1,000 units DAILY RAJNI Administration Dexamethasone 4 mg 02/24/20 08:00 02/26/20 08:16 Decadron PO 4 mg QAM-WM RAJNI Administration Famotidine 20 mg 02/19/20 21:00 02/26/20 08:16 Pepcid PO 20 mg BID RAJNI Administration Dextrose/Sodium Chloride 1,000 mls @ 100 mls/hr 02/20/20 07:45 02/26/20 16:25 D5 1/2 Ns IV 1,000 mls .Q10H RAJNI Administration Etoposide 200 mg/ Sodium 510 mls @ 510 mls/hr 02/25/20 12:45 02/26/20 16:25 Chloride IVPB 02/27/20 23:00 510 mls WILLCALL RAJNI Administration Ketorolac Tromethamine 15 mg 02/23/20 17:53 02/24/20 16:23 Toradol IVP 02/28/20 17:54 15 mg Q6H PRN Administration Pain Lidocaine 1 patch 02/21/20 09:00 02/26/20 08:17 Lidoderm 5% Patch TD 1 patch DAILY RAJNI Administration Miscellaneous Medication 1 each 02/21/20 21:00 02/25/20 19:51 Lidocaine Patch Removal TOP Not Given 2100 RAJNI Ondansetron HCl 4 mg 02/19/20 10:48 02/23/20 13:27 Zofran IVP 4 mg Q6H PRN Administration Nausea/Vomiting Simethicone 80 mg 02/20/20 11:23 02/23/20 20:27 Mylicon Chewable PO 80 mg PCHS PRN Administration Gas Pain Sodium Chloride 10 ml 02/16/20 19:25 02/23/20 20:30 Flush - Normal Saline IVF 10 ml Q12HR PRN Administration Saline Flush Tramadol HCl 50 mg 02/23/20 18:01 02/24/20 20:00 Ultram PO 50 mg Q6H PRN Administration Pain - Exam General Appearance: awake alert Eye: PERRL Neck: supple Heart: RRR, no rubs, normal peripheral pulses Respiratory: CTAB Gastrointestinal: soft Extremities: no cyanosis Psychiatric: normal affect, normal behavior, oriented to person Hosp A/P - Plan - Assessment Metastatic lung cancer Brain mets HTN liver mets Chronic low back pain Dyslipidemia Narcotic-induced lethargy, resolved - Plan Chemotherapy was started yesterday. Rad Onc following re: brain metastases.
[2020-02-26] MEDS: Lidocaine Patch Removal 1 EACH TOP SCH (19:46)
[2020-02-26] MEDS: Ketorolac Tromethamine 30 MG/ML VIAL IVP PRN (19:49)
[2020-02-26] MEDS: traMADol HCl 50 MG TAB PO PRN (23:21)
[2020-02-27] MEDS: Ketorolac Tromethamine 30 MG/ML VIAL IVP PRN (04:04)
[2020-02-27 04:30] LABS: ALT (SGPT) 140 U/L (8-55); AST (SGOT) 372 U/L (5-34); Alkaline Phosphatase 458 U/L (40-110); Bilirubin, Direct 5.5 mg/dL (0.1-0.3); Bilirubin, Total 7.2 mg/dL (0.2-1.2); Protein, Total 6.9 g/dL (5.8-8.1)
[2020-02-27 04:37] LABS: #Lymphocytes 1.3 thou/uL (1.20-3.40); #Monocytes 0.8 thou/uL (0.11-0.59); #Neutrophils 8.4 thou/uL (1.40-6.50); %Basophils 0.1 % (0.0-1.0); %Eosinophils 0.1 % (0.0-10.0); %Lymphocytes 12.2 % (21.0-51.0); %Monocytes 7.4 % (0.0-10.0); %Neutrophils 80.2 % (42.0-75.0); Hemoglobin 10.8 g/dL (14.0-18.0); Mean Corpuscular HGB CONC 30.2 g/dL (32.0-36.0); Mean Corpuscular Hemoglobin 26.6 pg (27.0-31.0); Mean Corpuscular Volume 88.3 fL (78.0-98.0); Mean Platelet Volume 8.3 fL (7.4-10.4); Platelet Count 190 thou/uL (130-400); RBC Distribution Width 20.6 % (11.5-14.5); Red Blood Cell (RBC) Count 4.06 mill/uL (4.70-6.10); White Blood Cell (WBC) Count 10.5 thou/uL (4.8-10.8)
[2020-02-27 04:38] LABS: ALT (SGPT) 140 U/L (8-55); AST (SGOT) 374 U/L (5-34); Alkaline Phosphatase 455 U/L (40-110); Anion Gap 10 mmol/L (10-20); BUN (Urea Nitrogen) 14 mg/dL (8.4-25.7); Bilirubin, Total 7.2 mg/dL (0.2-1.2); Calc. Creatinine Clearance 131 mL/min (70-130); Calcium 9.2 mg/dL (7.8-10.44); Carbon Dioxide 24 mmol/L (23-31); Chloride 101 mmol/L (98-107); Estimated GFR-MDRD Greater than 90; Glucose 110 mg/dL (80-115); Potassium 4.4 mmol/L (3.5-5.1); Sodium 131 mmol/L (136-145)
[2020-02-27] MEDS ORDERED: PEGFILGRASTIM-JMDB 6 MG/0.6 ML SYRINGE SQ SCH (08:00)
[2020-02-27] MEDS: Carvedilol 3.125 MG TAB PO SCH ×2 (08:51→22:26)
[2020-02-27] MEDS: Lidocaine 5% Patch TD SCH (08:51)
[2020-02-27] MEDS: Dexamethasone 4 MG TAB PO SCH (08:51)
[2020-02-27] MEDS: Famotidine 20 MG TAB PO SCH ×2 (08:51→22:26)
--- NOTE | 2020-02-27 13:43 | PDOC.HOSPP ---
- Subjective Encounter Date: 02/27/20 Encounter Time: 07:20 Subjective: Pt seen for followup re: met lung CA. Sleepy but arousable, denies chest pain or shortness of breath. - Objective Vital Signs & Weight: Vital Signs (12 hours) Temp Pulse Resp BP Pulse Ox 02/27/20 07:23 98.0 F 97 12 136/86 97 Weight Admit Weight 197 lb 4.8 oz Weight 188 lb I&O: 02/26/20 02/27/20 02/28/20 06:59 06:59 06:59 Intake Total 5000 3190 Output Total 1800 250 300 Balance 3200 2940 -300 Result Diagrams: 02/27/20 04:27 02/27/20 04:00 Additional Labs: Labs and MARs reviewed by co Hospitalist ROS - Review of Systems Cardiovascular: denies: chest pain, palpitations, orthopnea, paroxysmal noc. dyspnea, edema Gastrointestinal: denies: nausea, vomiting, diarrhea, constipation, melena, hematochezia - Medication Medications: Active Medications Generic Name Dose Route Start Last Admin Trade Name Freq PRN Reason Stop Dose Admin Carvedilol 3.125 mg 02/16/20 21:00 02/27/20 08:51 Coreg PO 3.125 mg BID RAJNI Administration Cholecalciferol 1,000 units 02/17/20 09:00 02/27/20 08:51 Vitamin D3 PO 1,000 units DAILY RAJNI Administration Dexamethasone 4 mg 02/24/20 08:00 02/27/20 08:51 Decadron PO 4 mg QAM-WM RAJNI Administration Famotidine 20 mg 02/19/20 21:00 02/27/20 08:51 Pepcid PO 20 mg BID RAJNI Administration Dextrose/Sodium Chloride 1,000 mls @ 100 mls/hr 02/20/20 07:45 02/26/20 23:21 D5 1/2 Ns IV 1,000 mls .Q10H RAJNI Administration Ketorolac Tromethamine 15 mg 02/23/20 17:53 02/27/20 04:04 Toradol IVP 02/28/20 17:54 15 mg Q6H PRN Administration Pain Lidocaine 1 patch 02/21/20 09:00 02/27/20 08:51 Lidoderm 5% Patch TD 1 patch DAILY RAJNI Administration Miscellaneous Medication 1 each 02/21/20 21:00 02/26/20 19:46 Lidocaine Patch Removal TOP 1 each 2100 RAJNI Administration Ondansetron HCl 4 mg 02/19/20 10:48 02/23/20 13:27 Zofran IVP 4 mg Q6H PRN Administration Nausea/Vomiting Simethicone 80 mg 02/20/20 11:23 02/23/20 20:27 Mylicon Chewable PO 80 mg PCHS PRN Administration Gas Pain Sodium Chloride 10 ml 02/16/20 19:25 02/23/20 20:30 Flush - Normal Saline IVF 10 ml Q12HR PRN Administration Saline Flush Tramadol HCl 50 mg 02/23/20 18:01 02/26/20 23:21 Ultram PO 50 mg Q6H PRN Administration Pain - Exam Eye: scleral icterus ENT: moist mucosa Neck: supple Heart: RRR, no rubs Respiratory: CTAB Gastrointestinal: soft, non-tender Psychiatric: normal affect, lethargic Hosp A/P - Plan - Assessment Metastatic lung cancer Brain mets Chronic low back pain HTN liver mets Dyslipidemia Narcotic-induced lethargy, resolved - Plan Chemotherapy on hold today due to worsening LFTs. Rad Onc following re: brain metastases.
[2020-02-27] MEDS: Dextrose 5 %-0.45 % NaCl 1,000 ML IV SCH ×2 (14:16→22:27)
[2020-02-27] MEDS: Lidocaine Patch Removal 1 EACH TOP SCH (22:27)
[2020-02-28] MEDS: Dextrose 5 %-0.45 % NaCl 1,000 ML IV SCH ×2 (03:00→10:43)
[2020-02-28] MEDS: Ketorolac Tromethamine 30 MG/ML VIAL IVP PRN (05:51)
[2020-02-28 06:09] LABS: ALT (SGPT) 125 U/L (8-55); AST (SGOT) 322 U/L (5-34); Albumin 1.9 g/dL (3.4-4.8); Alkaline Phosphatase 433 U/L (40-110); Anion Gap 13 mmol/L (10-20); BUN (Urea Nitrogen) 17 mg/dL (8.4-25.7); Bilirubin, Total 8.2 mg/dL (0.2-1.2); Calc. Creatinine Clearance 131 mL/min (70-130); Calcium 8.5 mg/dL (7.8-10.44); Carbon Dioxide 21 mmol/L (23-31); Chloride 101 mmol/L (98-107); Estimated GFR-MDRD Greater than 90; Globulin 4.8 g/dL (2.4-3.5); Glucose 104 mg/dL (80-115); Potassium 4.6 mmol/L (3.5-5.1); Protein, Total 6.7 g/dL (5.8-8.1); Sodium 130 mmol/L (136-145)
[2020-02-28 06:12] LABS: Band 13 % (5-11); Hemoglobin 11.2 g/dL (14.0-18.0); Hypochromia SLIGHT = 6-15 cells (100X) (0-5/hpf); Lymphocytes 2 % (21-51); MDiff Complete? YES; Mean Corpuscular Hemoglobin 28.3 pg (27.0-31.0); Mean Corpuscular Volume 88.4 fL (78.0-98.0); Mean Platelet Volume 9.7 fL (7.4-10.4); Monocytes 2 % (0-10); Neutrophil 83 % (42-75); Platelet Count 146 thou/uL (130-400); Platelet Morphology Comment Appears Adequate; RBC Distribution Width 20.9 % (11.5-14.5); Red Blood Cell (RBC) Count 3.97 mill/uL (4.70-6.10)
[2020-02-28] MEDS: Lidocaine 5% Patch TD SCH (08:10)
[2020-02-28] MEDS: Dexamethasone 4 MG TAB PO SCH (08:10)
[2020-02-28] MEDS: Carvedilol 3.125 MG TAB PO SCH ×2 (08:10→20:59)
[2020-02-28] MEDS: Famotidine 20 MG TAB PO SCH ×2 (08:11→20:59)
--- NOTE | 2020-02-28 08:32 | PDOC.MOPN ---
Interval History: Pt feeling ok today. His pain is slightly better. He is more alert than last week. Denies N/V/D/C at this time. He had constipation and received lactulose and it resolved. He is eating. - Vital Signs Vital Signs: Vital Signs (12 hours) Temp Pulse Resp BP Pulse Ox 02/28/20 07:49 98.7 F 110 H 18 137/72 99 Weight Admit Weight 197 lb 4.8 oz Weight 188 lb - Physical Exam General: Alert, Cooperative HEENT: EOMI Lungs: Normal air movement Neurological: Cranial nerves 3-12 NL - Labs Result Diagrams: 02/28/20 05:18 02/28/20 05:18 Lab results: Laboratory Results - last 24 hr 02/28/20 05:18: Sodium 130 L, Potassium 4.6, Chloride 101, Carbon Dioxide 21 L, Anion Gap 13, BUN 17, Creatinine 0.67 L, Estimated GFR (MDRD) Greater than 90, Glucose 104, Calcium 8.5, Total Bilirubin 8.2 H, AST 322 H, ALT 125 H, Alkaline Phosphatase 433 H, Serum Total Protein 6.7, Albumin 1.9 L, Globulin 4.8 H, Albumin/Globulin Ratio 0.4 L 02/28/20 05:18: WBC 22.0 H, RBC 3.97 L, Hgb 11.2 L, Hct 35.1 L, MCV 88.4, MCH 28.3, MCHC 32.0, RDW 20.9 H, Plt Count 146, MPV 9.7, Neutrophils % (Manual) 83 H , Band Neuts % (Manual) 13 H, Lymphocytes % (Manual) 2 L, Monocytes % (Manual) 2 , Hypochromia SLIGHT = 6-15 cells, Plt Morphology Comment Appears Adequate A/P - Problem (1) Small cell carcinoma Current Visit: Yes Code(s): C80.1 - MALIGNANT (PRIMARY) NEOPLASM, UNSPECIFIED Status: Acute - Plan Plan: s/p Carboplatin + VP16, held D3 of VP16 due to rising bilirubin encourage increased activity, OOB to chair, walking with PT increase PO intake plan next chemotherapy as outpatient if bilirubin improves
[2020-02-28] MEDS: Simethicone Chewable 80 MG TAB PO PRN (11:21)
[2020-02-28] MEDS: traMADol HCl 50 MG TAB PO PRN (11:21)
--- NOTE | 2020-02-28 13:30 | PDOC.HOSPP ---
- Subjective Encounter Date: 02/28/20 Encounter Time: 16:31 Subjective: Pt seen for followup re: [facility] cancer. c/o generalized weakness. - Objective Vital Signs & Weight: Vital Signs (12 hours) Temp Pulse Resp BP Pulse Ox 02/28/20 07:49 98.7 F 110 H 18 137/72 99 Weight Admit Weight 197 lb 4.8 oz Weight 188 lb I&O: 02/27/20 02/28/20 02/29/20 06:59 06:59 06:59 Intake Total 3190 2850 Output Total 250 350 Balance 2940 2500 Result Diagrams: 02/28/20 05:18 02/28/20 05:18 Additional Labs: Labs and MARs reviewed by al Hospitalist ROS - Review of Systems Constitutional: reports: weakness. denies: fever, chills, sweats, malaise Cardiovascular: denies: chest pain, palpitations, orthopnea, paroxysmal noc. dyspnea, edema, light headedness Skin: reports: adelina. denies: rash, lesions, bruising - Medication Medications: Active Medications Generic Name Dose Route Start Last Admin Trade Name Freq PRN Reason Stop Dose Admin Carvedilol 3.125 mg 02/16/20 21:00 02/28/20 08:10 Coreg PO 3.125 mg BID RAJNI Administration Cholecalciferol 1,000 units 02/17/20 09:00 02/28/20 08:11 Vitamin D3 PO 1,000 units DAILY RAJNI Administration Dexamethasone 4 mg 02/24/20 08:00 02/28/20 08:10 Decadron PO 4 mg QAM-WM RAJNI Administration Famotidine 20 mg 02/19/20 21:00 02/28/20 08:11 Pepcid PO 20 mg BID RAJNI Administration Dextrose/Sodium Chloride 1,000 mls @ 100 mls/hr 02/20/20 07:45 02/28/20 10:43 D5 1/2 Ns IV 1,000 mls .Q10H RAJNI Administration Ketorolac Tromethamine 15 mg 02/23/20 17:53 02/28/20 05:51 Toradol IVP 02/28/20 17:54 15 mg Q6H PRN Administration Pain Lactulose 20 gm 02/27/20 15:00 02/28/20 08:17 Lactulose PO 20 gm TID RAJNI Administration Lidocaine 1 patch 02/21/20 09:00 02/28/20 08:10 Lidoderm 5% Patch TD 1 patch DAILY RAJNI Administration Miscellaneous Medication 1 each 02/21/20 21:00 02/27/20 22:27 Lidocaine Patch Removal TOP 1 each 2100 RAJNI Administration Ondansetron HCl 4 mg 02/19/20 10:48 02/23/20 13:27 Zofran IVP 4 mg Q6H PRN Administration Nausea/Vomiting Pegfilgrastim-jmdb 6 mg 02/27/20 08:00 02/27/20 15:58 Fulphila SQ 6 mg WILLCALL RAJNI Administration Simethicone 80 mg 02/20/20 11:23 02/28/20 11:21 Mylicon Chewable PO 80 mg PCHS PRN Administration Gas Pain Sodium Chloride 10 ml 02/16/20 19:25 02/28/20 08:11 Flush - Normal Saline IVF 10 ml Q12HR PRN Administration Saline Flush Tramadol HCl 50 mg 02/23/20 18:01 02/28/20 11:21 Ultram PO 50 mg Q6H PRN Administration Pain - Exam General Appearance: awake alert Eye: scleral icterus ENT: moist mucosa Neck: supple Heart: RRR Respiratory: CTAB Gastrointestinal: soft, non-tender Extremities: 2+ LE edema Psychiatric: normal affect, normal behavior Hosp A/P - Plan PT/OT - Assessment Metastatic lung cancer Psyical deconditioning Brain mets Chronic low back pain HTN liver mets Dyslipidemia Narcotic-induced lethargy, resolved - Plan Chemotherapy on hold Needs Rehab screen DC IV fluids
[2020-02-28] MEDS ORDERED: Dextrose 5 % And 0.9 % NaCl 1,000 ML IV SCH (16:15)
[2020-02-28] MEDS ORDERED: Furosemide 40 MG/4 ML VIAL SLOW IVP SCH (18:30)
--- NOTE | 2020-02-28 19:07 | RAD ---
CHEST ONE VIEW: History: Shortness of breath Comparison: 02-25-2020 FINDINGS: There is a right middle lobe and right lower lobe airspace opacity which has slightly improved. Left lung is relatively clear. No pneumothorax. Port catheter is similar. NO acute osseous abnormality. IMPRESSION: Similar appearance to the right lung malignancy with slightly improved post obstructive pneumonitis. POS: HOME
[2020-02-28] MEDS: Lidocaine Patch Removal 1 EACH TOP SCH (21:02)
[2020-02-29] MEDS: traMADol HCl 50 MG TAB PO PRN (02:14)
[2020-02-29 05:35] LABS: ALT (SGPT) 110 U/L (8-55); AST (SGOT) 256 U/L (5-34); Alkaline Phosphatase 411 U/L (40-110); Anion Gap 13 mmol/L (10-20); BUN (Urea Nitrogen) 22 mg/dL (8.4-25.7); Bilirubin, Total 9.5 mg/dL (0.2-1.2); Calc. Creatinine Clearance 110 mL/min (70-130); Calcium 8.7 mg/dL (7.8-10.44); Carbon Dioxide 25 mmol/L (23-31); Chloride 100 mmol/L (98-107); Estimated GFR-MDRD Greater than 90; Globulin 4.9 g/dL (2.4-3.5); Glucose 117 mg/dL (80-115); Potassium 4.5 mmol/L (3.5-5.1); Protein, Total 6.9 g/dL (5.8-8.1); Sodium 133 mmol/L (136-145)
[2020-02-29 05:37] LABS: Band 11 % (5-11); Hemoglobin 10.8 g/dL (14.0-18.0); Lymphocytes 4 % (21-51); MDiff Complete? YES; Mean Corpuscular HGB CONC 31.4 g/dL (32.0-36.0); Mean Corpuscular Hemoglobin 27.3 pg (27.0-31.0); Mean Corpuscular Volume 86.9 fL (78.0-98.0); Mean Platelet Volume 9.4 fL (7.4-10.4); Monocytes 1 % (0-10); Neutrophil 84 % (42-75); Nucleated RBC 1 % (0); Platelet Count 138 thou/uL (130-400); Platelet Morphology Comment Appears Adequate; Red Blood Cell (RBC) Count 3.97 mill/uL (4.70-6.10); White Blood Cell (WBC) Count 26.9 thou/uL (4.8-10.8)
[2020-02-29] MEDS: Famotidine 20 MG TAB PO SCH (08:14)
[2020-02-29] MEDS: Lidocaine 5% Patch TD SCH (08:15)
[2020-02-29] MEDS: Carvedilol 3.125 MG TAB PO SCH (08:15)
[2020-02-29] MEDS: Dexamethasone 4 MG TAB PO SCH (08:15)
[2020-02-29 08:21] VITALS: BP 144/79; TEMP 98.3
--- NOTE | 2020-02-29 14:57 | PDOC.PALPN ---
Palliative Progress Note - Subjective Flat affect. Complains of poor intake, mild headache, abdominal discomfort. States he has had a BM. - Objective Vital Signs: Vital Signs - Most Recent Temp Pulse Resp BP Pulse Ox 98.3 F 111 H 18 144/79 H 92 L 02/29/20 08:19 02/29/20 08:19 02/29/20 08:19 02/29/20 08:19 02/29/20 08:19 - Physical Exam Constitutional: cachectic, ill appearing HEENT: EOMI, moist MMs Respiratory: no wheezing, unlabored breathing Cardiovascular: RRR Deviation from normal: Distended, tender with gentle palpation Musculoskeletal: pulses present, diffuse muscle atrophy Neurology: moves all 4 limbs Skin: cap refill <2 seconds Psychiatric: A&O x 3, flat affect - Assessment (1) Palliative care encounter Code(s): Z51.5 - ENCOUNTER FOR PALLIATIVE CARE Current Visit: Yes Status: Acute (2) Abnormal LFTs Code(s): R94.5 - ABNORMAL RESULTS OF LIVER FUNCTION STUDIES Current Visit: Yes Status: Acute (3) Metastatic adenocarcinoma to liver Code(s): C78.7 - SECONDARY MALIG NEOPLASM OF LIVER AND INTRAHEPATIC BILE DUCT Current Visit: Yes Status: Acute (4) SOB (shortness of breath) on exertion Code(s): R06.02 - SHORTNESS OF BREATH Current Visit: Yes Status: Acute (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 Continues with abdominal discomfort/distention but states BM occurred. Chemo stopped secondary to elevated Bili Hope is to consider Rehab for improvement on physical deconditioning and chemo outpatient. Will follow up for Goal of Care with the perspective of Hope for the Best/Plan for the worst. Emotional support. Please also refer to Nayan Jha RN Notes in note section. [30] minutes spent on this encounter with >50% of the time in counseling and coordination of care. - ROS Constitutional: loss appetite, weakness ENT: other (Denies throat irritation, congestion) Respiratory: other (Negative for cough) Cardiology: other (Negative for chest palpitations, discomfort) Gastrointestinal: nausea Neurological: headache
--- NOTE | 2020-02-29 15:09 | PDOC.MOPN ---
Interval History: denies any issues. Eating. no pain. - Vital Signs Vital Signs: Vital Signs (12 hours) Temp Pulse Resp BP Pulse Ox 02/29/20 08:19 98.3 F 111 H 18 144/79 H 92 L Weight Admit Weight 197 lb 4.8 oz Weight 188 lb - Physical Exam General: Alert HEENT: Atraumatic Lungs: Clear to auscultation Cardiovascular: Regular rate Abdomen: Other (distended, hepatomegaly) Neurological: Normal speech - Labs Result Diagrams: 02/29/20 04:50 02/29/20 04:50 Lab results: Laboratory Results - last 24 hr 02/29/20 04:50: Sodium 133 L, Potassium 4.5, Chloride 100, Carbon Dioxide 25, Anion Gap 13, BUN 22, Creatinine 0.80, Estimated GFR (MDRD) Greater than 90, Glucose 117 H, Calcium 8.7, Total Bilirubin 9.5 H, AST 256 H, ALT 110 H, Alkaline Phosphatase 411 H, Serum Total Protein 6.9, Albumin 2.0 L, Globulin 4.9 H, Albumin/Globulin Ratio 0.4 L 02/29/20 04:50: WBC 26.9 H, RBC 3.97 L, Hgb 10.8 L, Hct 34.5 L, MCV 86.9, MCH 27.3, MCHC 31.4 L, RDW 21.0 H, Plt Count 138, MPV 9.4, Neutrophils % (Manual) 84 H, Band Neuts % (Manual) 11, Lymphocytes % (Manual) 4 L, Monocytes % (Manual ) 1, Nucleated RBCs # (Man) 1 H, Plt Morphology Comment Appears Adequate Status: lab reviewed by me A/P - Problem (1) Abnormal LFTs Current Visit: Yes Code(s): R94.5 - ABNORMAL RESULTS OF LIVER FUNCTION STUDIES Status: Acute (2) Small cell carcinoma Current Visit: Yes Code(s): C80.1 - MALIGNANT (PRIMARY) NEOPLASM, UNSPECIFIED Status: Acute (3) Spine metastasis Current Visit: Yes Code(s): C79.51 - SECONDARY MALIGNANT NEOPLASM OF BONE Status: Acute - Plan Plan: 1. cycle 1 chemo completed 2. ready for rehab 3. monitor LFT's 4. Follow-up Dr. Ray 03/14/20 @ 1400
--- NOTE | 2020-02-29 16:22 | DIS ---
DATE OF ADMISSION: 02/16/2020 DATE OF DISCHARGE: 02/29/2020 PRIMARY CARE PROVIDER: Teresa Julian MD DISCHARGE DIAGNOSES: 1. Metastatic small cell carcinoma of the lung. 2. Brain metastasis. 3. Liver metastases. 4. Abnormal LFTs. 5. Postobstructive pneumonia. 6. Physical deconditioning. 7. Hyponatremia. CONDITION: Condition of the patient on the day of discharge: Stable. I assessed Mr. River on the day of discharge. He denies any chest pain or shortness of breath. Vital signs are stable. S1 and S2 are heard, regular. Lungs are clear to auscultation bilaterally. CONSULTATIONS DURING THIS HOSPITALIZATION: 1. Oncology, Dr. Ray. 2. Radiation Oncology, Dr. Peralta. 3. General Surgery, Dr. Toscano. DISCHARGE MEDICATIONS: 1. Coreg 3.125 mg 2 times a day. 2. Vitamin D3 of 25 mcg daily. 3. Pravastatin 80 mg at bedtime. 4. Pepcid 20 mg 2 times a day. 5. Levofloxacin 750 mg daily for 6 more days. 6. Lidoderm 5% patch daily. 7. Simethicone 80 mg as needed. 8. Tramadol 50 mg as needed. HOSPITAL COURSE: Mr. River is a pleasant 64-year-old gentleman, who was admitted to [facility] on February 16, 2020, for metastatic lung cancer. He was ruled out for COVID-19. He underwent CT-guided biopsy of right sacral ala. He was seen by Medical Oncology. The pathology report indicated metastatic high-grade neuroendocrine neoplasm. He was also found to have two brain metastasis on MRI of the brain. He was seen by Radiation Oncology Service. He was seen by General Surgery Service and had MediPort placed. He was started on chemotherapy. His LFT started worsening. He was also physically deconditioned. He was evaluated by Therapy Services. He has been recommended inpatient rehab. He is being discharged to [facility] for further management. POST-ACUTE CARE FOLLOWUP: With primary care provider in 1 week, with Radiation Oncology in 3 to 4 weeks, and with Oncology Service, Dr. Ray. LABORATORY DATA: On the day of discharge, he has sodium 133, potassium 4.5, creatinine 0.80, total bilirubin 9.5, AST 256, ALT 110, alkaline phosphatase 411 , and albumin 2.0. White count 26,900, hemoglobin 10.8, and platelet count 138, 000. DIET: Heart healthy. ACTIVITY: No restrictions. DISCHARGE DESTINATION: [facility]. TIME SPENT: Total amount of time spent in coordinating this discharge: 32 minutes. Job ID: [id number] MTDD
[2020-03-01] MEDS ORDERED: Dexamethasone 4 MG TAB PO SCH (08:00)
--- NOTE | 2020-03-02 05:59 | PQF ---
[employer] Arabic Translator Crystal Reports Winform Viewer TE REDDY DAVID [id number] [facility]-241 [id number] CLINICAL DOCUMENTATION CLARIFICATION FORM: POST DISCHARGE Addendum to original discharge summary date: ____ Late entry note date: __ Date: 03/02/20 ATTN : Yaya Lua Please exercise your independent, professional judgment in responding to the clarification form. Clinical indicators are provided on the bottom of this form for your review Based on your clinical judgment can you please further clarify the diagnosis of the patient? Please check appropriate box(s): [x ] Protein Calorie Malnutrition: [ ] Mild [ x ] Moderate [ ] Severe [ ] Other Malnutrition (please specify) __ [ ] Underweight without malnutrition [ ] Cachexia [ ] Other diagnosis [ ] Unable to determine In addition, please specify: Present on Admission (POA): [ x ] Yes [ ] No [ ] Unable to determine CLINICAL INDICATORS - SIGNS / SYMPTOMS / LABS Consult DR. Alves pg.1- feeling week with 10 pounds weight loss, poor appetite abd increasing abdominal girth BMI- [address] 02/27 Palliative care PN pg.1-Cachectic Nutritional Assessment 02/27 edema present suggestive of moderate malnutrition in the context of acute illness Albumin- 2.3L, 2.3L, 2.2L, 2.1L 2.0L, 1.9L RISK FACTORS Hx of Smoking- Consult pg.1 HTN- H and P pg.1 HLD- H and P pg.1 64 years old- H and P pg.1 Metastatic lung cancer- Consult pg.2 Bone and liver mets- Consult pg.2 TREATMENT: Dietary Consult 02/23 IV Fluids- MAR Oncology Consult Dr. Alves Bone biopsy Mediport placement 02/24 Ensure Enlive-Consult RD 02/27 Recommend low sodium diet-Consult RD 02/27 Monitor weight change-Consult RD 02/27 Monitor total protein intake-Consult RD 02/27 Consider an appetite stimulant-Consult RD 02/27 Moderate Malnutrition (in acute illness) Energy Intake: <75% of estimated energy requirement for > 7 days Weight Loss: 1-2%/1 week; 5%/ 1 month; 7.5%/3 months Other: mild body fat loss; mild muscle mass loss; mild fluid accumulation; Severe Malnutrition (in acute illness) Energy Intake: < 50% of estimated energy requirement for > 5 days Weight Loss: >1-2%/1 week; >5%/1 month; >7.5%/3 months Other: moderate body fat loss; moderate muscle mass loss; moderate- severe fluid accumulation; 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 strength Moderate Malnutrition (in chronic illness) Energy Intake: <75% of estimated energy requirement for >1 month Weight Loss: 5%/1 month; 7.5%/3 months; 10%/6 months; 20%/1 year Other: mild body fat loss; mild muscle mass loss; mild fluid accumulation Severe Malnutrition (in chronic illness) Energy Intake: <75% of estimated energy requirement for >1 month Weight Loss: >5%/1 month; >7.5%/3 months; >10%/6 months; >20%/1 year Other: severe body fat loss; severe muscle mass loss; severe fluid accumulation ; 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 strength (This form is maintained as a part of the permanent medical record) 2014 [employer]. All Rights Reserved [email or web address]
== END 2020-02-29 17:30 | DRG 981 ==
LOC: 2SW 17:02 → ONC 02-17 15:37
PROVIDERS: ADMIT Internal Medicine; ATTEND Internal Medicine
PROC: 0QB13ZX Excision of Sacrum, Percutaneous Approach, Diagnostic (ICD-10-PCS; 2020-02-17)
PROC: 3E03305 Introduction of Other Antineoplastic into Peripheral Vein, Percutaneous Approach (ICD-10-PCS; 2020-02-17)
PROC: BR2 Imaging, Axial Skeleton, Except Skull and Facial Bones, Computerized Tomography (CT Scan) (ICD-10-PCS; 2020-02-17)
PROC: 0JH60WZ Insertion of Totally Implantable Vascular Access Device into Chest Subcutaneous Tissue and Fascia, Open Approach (ICD-10-PCS; principal; 2020-02-25)
PROC: 02HV33Z Insertion of Infusion Device into Superior Vena Cava, Percutaneous Approach (ICD-10-PCS; 2020-02-25)
PROC: B518ZZA Fluoroscopy of Superior Vena Cava, Guidance (ICD-10-PCS; 2020-02-25)
DX: C34.31 Malignant neoplasm of lower lobe, right bronchus or lung (principal); K83.1 Obstruction of bile duct; J18.8 Other pneumonia, unspecified organism; G93.6 Cerebral edema; C79.51 Secondary malignant neoplasm of bone; C78.7 Secondary malignant neoplasm of liver and intrahepatic bile duct; J91.0 Malignant pleural effusion; C79.31 Secondary malignant neoplasm of brain; E87.1 Hypo-osmolality and hyponatremia; R64 Cachexia; E44.0 Moderate protein-calorie malnutrition; Z20.828 Contact with and (suspected) exposure to other viral communicable diseases; Z51.5 Encounter for palliative care; I10 Essential (primary) hypertension; E78.5 Hyperlipidemia, unspecified; M54.5 Low back pain; G89.29 Other chronic pain; E78.00 Pure hypercholesterolemia, unspecified; R53.83 Other fatigue; T40.2X5A Adverse effect of other opioids, initial encounter; E83.52 Hypercalcemia; K59.00 Constipation, unspecified; Z68.25 Body mass index [BMI] 25.0-25.9, adult; Z90.49 Acquired absence of other specified parts of digestive tract; Z79.899 Other long term (current) drug therapy; Z87.891 Personal history of nicotine dependence
CPT/HCPCS: 20225; 36415; 36416; 70553; 71045; 74019; 77012; 80053; 82378; 83605; 84436; 84443; 84550; 85025; 85610; 85730; 87040; 88307; 88333; 88341; 88342; 88360; 90471; 90670; 93306; C1788; G0009; J0690; J1100; J1642; J1650; J1885; J1940; J1956; J2250; J2270; J2310; J2405; J2469; J2704; J3010; J3489; J3490; J7030; J7050; J8540; J9045; J9181; Q5108; S0020; S0028

== ENCOUNTER 2020-04-03 12:11 | Outpatient (CLI) | payer MEDICARE ==
--- NOTE | 2020-04-03 13:45 | MRI ---
MRI BRAIN WITH AND WITHOUT CONTRAST: DATE: 04/03/2020 HISTORY: 64-year-old male with lung cancer metastatic to the brain. Follow-up. COMPARISON: 02/19/2020 TECHNIQUE: Multiplanar, multisequence MRI of the brain performed pre- and post-IV injection of gadolinium based contrast agent. FINDINGS: The enhancing intra-axial metastatic lesion in the right precentral gyrus at the vertex of the brain, was previously approximately 1.4 x 1.1 x 1.1 cm. It is currently 0.7 x 0.6 x 0.6 cm, and currently has thin rim enhancement but no central enhancement. Previously, there was straw-colored and surround ing vasogenic edema. Currently, that edema has completely resolved. The previously demonstrated 1 x 0.8 x 0.5 cm enhancing intra-axial nodule in the right cerebellar hem isphere, with surrounding vasogenic edema, is currently 0.5 x 0.3 x 0.3 cm. Its associated vasogenic edema has resolved. There are no new enhancing extra axial or intra-axial nodules. Ventricles are normal in size and conf iguration. No mass effect or midline shift. IMPRESSION: Significant interval decrease in the sizes of the 2 intra-axial metastatic brain lesions
== END 2020-04-03 12:12 | disposition home or self-care (01) ==
LOC: SCSMRI 12:11
PROVIDERS: ATTEND Radiology Radiation Oncology
DX: C79.31 Secondary malignant neoplasm of brain (principal); C34.90 Malignant neoplasm of unspecified part of unspecified bronchus or lung
CPT/HCPCS: 70553

== ENCOUNTER → 2020-04-03 | Day surgery (SDC) | payer MEDICARE ==
[~2020-04-03] MED LIST: CARBOplatin 750 MG in Sodium Chloride 0.9% 250 ML 250 ML IVPB SCH; Etoposide 200 MG in Sodium Chloride 0.9% 500 ML IVPB SCH; Palonosetron HCl 0.25 MG in Sodium Chloride 0.9% 50 ML IVPB SCH; Sodium Chloride 0.9% 20 ML ONE
[2020-04-03 14:09] VITALS: BP 156/84; TEMP 98
== END ==
LOC: ONC/OP 13:54
PROVIDERS: ATTEND Internal Medicine Hematology & Oncology
DX: Z12.11 Encounter for screening for malignant neoplasm of colon (principal); C34.31 Malignant neoplasm of lower lobe, right bronchus or lung
CPT/HCPCS: 96375; 96413; 96417; J1100; J1642; J2469; J7030; J9045; J9181

== ENCOUNTER 2020-04-04 12:21 | Day surgery (SDC) | payer MEDICARE ==
[~2020-04-04 12:21] MED LIST changes: -CARBOplatin 750 MG in Sodium Chloride 0.9% 250 ML 250 ML IVPB SCH; -Palonosetron HCl 0.25 MG in Sodium Chloride 0.9% 50 ML IVPB SCH; -Sodium Chloride 0.9% 20 ML ONE
[2020-04-04 12:34] VITALS: BP 157/82; TEMP 98.5
[2020-04-04] MEDS ORDERED: Sodium Chloride 0.9% 20 ML ONE (13:33)
== END 2020-04-04 14:23 | disposition home or self-care (01) ==
LOC: ONC/OP 12:21
PROVIDERS: ATTEND Internal Medicine Hematology & Oncology
DX: Z51.11 Encounter for antineoplastic chemotherapy (principal); C34.31 Malignant neoplasm of lower lobe, right bronchus or lung
CPT/HCPCS: 96413; J1642; J7030; J9181

== ENCOUNTER 2020-04-14 08:55 | Outpatient (CLI) | payer MEDICARE ==
--- NOTE | 2020-04-14 10:59 | CT ---
CT CHEST AND ABDOMEN AND PELVIS WITH IV CONTRAST: Date: 04/14/2020 Oral contrast was administered. INDICATION: Small cell lung cancer with mets to liver. Comparison made to recent CT chest, abdomen and pelvis dated 02/16/2020. FINDINGS: CT CHEST: The right side effusion has increased since exam of 02/16/2020. There is now moderate right pleural e ffusion with right basilar atelectasis. There is dense atelectasis in the right middle lobe. The mass density in the right lower lung noted previously as decreased in size, measuring 1.8 cm AP dimension in the axial plane today. It previously measured 3.3 cm. There has been significant improvement in the mediastinal and hilar adenopathy and right hilar mass s titus 02/16/2020. There continues to be paratracheal adenopathy. These nodes show low density center c onsistent with interval treatment. The right hilar mass is significantly regressed. The left lung appears clear. Review of osseous structures show a new superior end plate deformity at T12 with mild superior end pl ate compression and anterior wedging which has developed since the prior exam. There are small lucent lesions seen scattered throughout the thoracic spine suggesting osseous metastasis. IMPRESSION: 1. Significant regression of the mediastinal adenopathy and the right hilar adenopathy/mass when com pared to the prior exam. There has been decrease in size of the right lung mass as noted above. 2. There is enlarging right pleural effusion and there is dense right lower lobe and right middle lo be atelectasis. 3. There is evidence of osseous metastatic disease as described. CT ABDOMEN AND PELVIS: The liver again shows numerous areas of low attenuation consistent with diffuse liver metastatic dise ase. Overall size of the liver has decreased since 02/16/2020. Patient had significant hepatomegaly o n the prior study. The liver is more normal size today with a craniocaudal dimension today recorded a t 18-19 cm. A previous craniocaudal dimension of the liver was recorded at 26 cm. The spleen and pancreas are unremarkable. Adrenal glands and kidneys are unremarkable. Small and large bowel loops are unremarkable. Aorta normal caliber with atherosclerotic change. No retroperitoneal or abdominal adenopathy apparent . Images through the pelvis show unremarkable urinary bladder and prostate. Osseous structures show scattered lucent lesions in the lumbar spine consistent with metastatic lesio ns. Disc bulge and hypertrophic change results in severe central canal stenosis at L3-4. IMPRESSION: 1. Continued evidence of diffuse liver metastatic disease. The size of the liver has decreased since the prior exam as described above. 2. Evidence of osseous metastasis. POS: AGW
--- NOTE | 2020-04-14 14:05 | NM ---
NM Bone Scan STANDARD History: Bone metastases. Malignant neoplasm of lower lobe Comparison: CT examination same day Findings: Delayed whole body bone scan was performed after the intravenous administration 32.1 mCi te chnetium 99m MDP. Abnormal radiotracer uptake within the right sacrum, L5 vertebra, L3 vertebra, L2 vertebra, T12 verte bra, right anterolateral second and third ribs as well as posterior fourth rib and posterior eighth rib. Impression: Multifocal osseous metastatic disease.
== END 2020-04-14 08:56 | disposition home or self-care (01) ==
LOC: CT 08:55 → NM 08:56
PROVIDERS: ATTEND Internal Medicine Hematology & Oncology
DX: C34.31 Malignant neoplasm of lower lobe, right bronchus or lung (principal); R59.0 Localized enlarged lymph nodes; J90 Pleural effusion, not elsewhere classified; J98.11 Atelectasis; C79.51 Secondary malignant neoplasm of bone
CPT/HCPCS: 71260; 74177; 78306; A9503

== ENCOUNTER 2020-04-24 08:01 | Day surgery (SDC) | payer MEDICARE ==
[~2020-04-24 08:01] MED LIST changes: +CARBOPLATIN IVPB SCH; +Palonosetron HCl 0.25 MG in Sodium Chloride 0.9% 50 ML IVPB SCH; +SODIUM CHLORIDE 0.9% IVPB SCH
[2020-04-24] MEDS ORDERED: Sodium Chloride 0.9% 20 ML ONE (10:11)
[2020-04-24 10:28] VITALS: BP 136/75; TEMP 98.2
[2020-04-24] MEDS ORDERED: CARBOplatin 750 MG in Sodium Chloride 0.9% 250 ML 250 ML IVPB SCH (11:00)
== END 2020-04-24 16:06 | disposition home or self-care (01) ==
LOC: ONC/OP 08:01
PROVIDERS: ATTEND Internal Medicine Hematology & Oncology
DX: Z51.11 Encounter for antineoplastic chemotherapy (principal); C34.31 Malignant neoplasm of lower lobe, right bronchus or lung
CPT/HCPCS: 96375; 96413; 96417; J1100; J1642; J2469; J7030; J7050; J9045; J9181

== ENCOUNTER 2020-04-25 09:34 | Day surgery (SDC) | payer MEDICARE ==
[~2020-04-25 09:34] MED LIST changes: -CARBOPLATIN IVPB SCH; -Palonosetron HCl 0.25 MG in Sodium Chloride 0.9% 50 ML IVPB SCH; -SODIUM CHLORIDE 0.9% IVPB SCH
[2020-04-25] MEDS ORDERED: Sodium Chloride 0.9% 20 ML ONE (09:39)
[2020-04-25 09:40] VITALS: BP 147/74
== END 2020-04-25 11:06 | disposition home or self-care (01) ==
LOC: ONC/OP 09:34
PROVIDERS: ATTEND Internal Medicine Hematology & Oncology
DX: Z51.11 Encounter for antineoplastic chemotherapy (principal); C34.31 Malignant neoplasm of lower lobe, right bronchus or lung
CPT/HCPCS: 96413; J1642; J7030; J9181

== ENCOUNTER 2020-04-26 08:27 | Day surgery (SDC) | payer MEDICARE ==
[~2020-04-26 08:27] MED LIST changes: +ATEZOLIZUMAB 1,200 MG in Sodium Chloride 0.9% 250 ML 250 ML IVPB SCH; +PEGFILGRASTIM-JMDB 6 MG/0.6 ML SYRINGE SQ SCH
[2020-04-26] MEDS ORDERED: Sodium Chloride 0.9% 20 ML ONE (08:30)
[2020-04-26 08:42] VITALS: BP 135/79; TEMP 98.6
== END 2020-04-26 11:23 | disposition home or self-care (01) ==
LOC: ONC/OP 08:27
PROVIDERS: ATTEND Internal Medicine Hematology & Oncology
DX: Z51.11 Encounter for antineoplastic chemotherapy (principal); C34.31 Malignant neoplasm of lower lobe, right bronchus or lung
CPT/HCPCS: 96413; 96417; J1642; J7030; J9181

== ENCOUNTER 2020-04-27 09:05 | Day surgery (SDC) | payer MEDICARE ==
[~2020-04-27 09:05] MED LIST changes: -ATEZOLIZUMAB 1,200 MG in Sodium Chloride 0.9% 250 ML 250 ML IVPB SCH; -Etoposide 200 MG in Sodium Chloride 0.9% 500 ML IVPB SCH
[2020-04-27 09:11] VITALS: BP 137/81; TEMP 99.6
== END 2020-04-27 09:15 | disposition home or self-care (01) ==
LOC: ONC/OP 09:05
PROVIDERS: ATTEND Internal Medicine Hematology & Oncology
DX: C34.31 Malignant neoplasm of lower lobe, right bronchus or lung (principal)
CPT/HCPCS: 96372; Q5108

== ENCOUNTER 2020-06-06 07:29 | Outpatient (CLI) | payer MEDICARE, OTHER ==
[2020-06-06 08:19] LABS: Estimated GFR-MDRD - POC Greater than 90
--- NOTE | 2020-06-06 10:09 | CT ---
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 Exam requested to evaluate response to chemotherapy. COMPARISON: 04/14/2020. FINDINGS: A moderate-sized right-sided pleural effusion is seen which has mildly increased in size since the la st exam obscuring the right lower lobe peripheral mass. Adjacent atelectatic change is again noted. The dense atelectasis in the right middle lobe is stable. The left lung is clear. Mediastinal and right hilar lymphadenopathy is stable. Cystic change in the right paratracheal lymph node is less prominent compared to the previous study. Numerous focal areas of low-attenuation consistent with diffuse liver metastatic disease are again se en. The spleen measures 15.6 cm in length with mild interval increase in size since the last exam. The pancreas, adrenal glands, and kidneys are normal. No free air, free fluid, or lymphadenopathy is seen in the abdomen or pelvis. There are vascular calcifications without evidence of aneurysmal dilatation of the thoracoabdominal a bella. Small bilateral fat-containing inguinal herniae are again seen. Scattered lucent lesions in the skeleton are again noted consistent with osseous metastatic disease. The lytic lesion in the right iliac bone noted on the previous study demonstrates mild bony reaction . The mild superior end plate compression and anterior wedging at T12 is stable. IMPRESSION: 1. Mild interval increase in size of the moderate right-sided pleural effusion with adjacent atelect atic changes. 2. Stable mediastinal and right hilar lymphadenopathy. 3. Stable hepatic metastatic disease. 4. Splenomegaly. 5. Osseous metastatic disease. POS: OFF
--- NOTE | 2020-06-06 11:57 | NM ---
Radionucleotide bone scan HISTORY: Malignant neoplasm of right lung lower lobe. Metastatic disease. Restaging. COMPARISON: 04/14/2020. FINDINGS: Pathologically increased uptake associated with the right side of the sacrum, T11, L2, and L5 vertebrae, and posterior aspect of the right fourth and eighth ribs is less intense than on the prior study. Other lesions from the prior study are no longer perceptible. No new abnormalities are demonstrated. IMPRESSION : Significant interval improvement in the 04/14/2020 study.
[2020-06-06] MEDS ORDERED: Iopamidol 370 76% 100 ML VIAL ONE (12:49)
== END 2020-06-06 07:30 | disposition home or self-care (01) ==
LOC: CT 07:29
PROVIDERS: ATTEND Internal Medicine Hematology & Oncology
DX: C34.31 Malignant neoplasm of lower lobe, right bronchus or lung (principal); C79.51 Secondary malignant neoplasm of bone; C78.7 Secondary malignant neoplasm of liver and intrahepatic bile duct; J90 Pleural effusion, not elsewhere classified; R59.0 Localized enlarged lymph nodes; R16.1 Splenomegaly, not elsewhere classified
CPT/HCPCS: 71260; 74177; 78306; 80053; 82248; 82565; 83615; 84100; 84436; 84443; 84550; A9503; 36415; Q9967

== ENCOUNTER 2020-06-07 10:17 | Day surgery (SDC) | payer MEDICARE, OTHER ==
[~2020-06-07 10:17] MED LIST changes: +ATEZOLIZUMAB 1,200 MG in Sodium Chloride 0.9% 250 ML 250 ML IVPB SCH; -PEGFILGRASTIM-JMDB 6 MG/0.6 ML SYRINGE SQ SCH
[2020-06-07] MEDS ORDERED: Sodium Chloride 0.9% 20 ML ONE (10:22)
[2020-06-07 10:53] VITALS: BP 134/78; TEMP 98.6
== END 2020-06-07 11:44 | disposition home or self-care (01) ==
LOC: ONC/OP 10:17
PROVIDERS: ATTEND Internal Medicine Hematology & Oncology
DX: Z51.12 Encounter for antineoplastic immunotherapy (principal); C34.31 Malignant neoplasm of lower lobe, right bronchus or lung
CPT/HCPCS: 96413; J1642

== ENCOUNTER 2020-06-28 08:19 | Observation (INO) | payer MEDICARE, OTHER ==
[2020-06-28 09:03] LABS: #Lymphocytes 1.3 thou/uL (1.20-3.40); #Monocytes 0.8 thou/uL (0.11-0.59); %Basophils 0.2 % (0.0-1.0); %Eosinophils 0.4 % (0.0-10.0); %Lymphocytes 14.1 % (21.0-51.0); %Monocytes 8.9 % (0.0-10.0); %Neutrophils 76.4 % (42.0-75.0); Hemoglobin 10.2 g/dL (14.0-18.0); Mean Corpuscular HGB CONC 32.3 g/dL (32.0-36.0); Mean Corpuscular Volume 89.8 fL (78.0-98.0); Mean Platelet Volume 7.9 fL (7.4-10.4); Platelet Count 168 thou/uL (130-400); RBC Distribution Width 15.6 % (11.5-14.5); Red Blood Cell (RBC) Count 3.53 mill/uL (4.70-6.10); White Blood Cell (WBC) Count 9.1 thou/uL (4.8-10.8)
[2020-06-28 09:21] LABS: ALT (SGPT) 40 U/L (8-55); AST (SGOT) 50 U/L (5-34); Albumin 3.1 g/dL (3.4-4.8); Alkaline Phosphatase 112 U/L (40-110); Anion Gap 14 mmol/L (10-20); BUN (Urea Nitrogen) 11 mg/dL (8.4-25.7); Bilirubin, Total 1.5 mg/dL (0.2-1.2); CK (CPK) 214 U/L (30-200); Calc. Creatinine Clearance 0 mL/min (70-130); Calcium 9.1 mg/dL (7.8-10.44); Carbon Dioxide 25 mmol/L (23-31); Chloride 95 mmol/L (98-107); Estimated GFR-MDRD Greater than 90; Globulin 5.1 g/dL (2.4-3.5); Glucose 144 mg/dL (80-115); Potassium 3.6 mmol/L (3.5-5.1); Protein, Total 8.2 g/dL (5.8-8.1); Sodium 130 mmol/L (136-145)
--- NOTE | 2020-06-28 09:43 | RAD ---
PORTABLE CHEST: Indications: Chest pain Correlation made to CT chest 06-06-2020. FINDINGS: Large right pleural effusion again noted with right basilar infiltrate and consolidation, similar to the CT of 06-06-2020. Left lung is clear. Mediport catheter appears adequately positioned. IMPRESSION: Right basilar opacification consistent with large effusion and bibasilar atelectasis and consolidatio n, similar to the CT of 06-06-2020. POS: AGW
--- NOTE | 2020-06-28 10:23 | CT ---
EXAM: CTA of the chest HISTORY: Chest pain and history of lung cancer COMPARISON: 02/16/2020 TECHNIQUE: Multiple contiguous axial images were obtained a CTA of the chest with contrast per pulmon lia embolism protocol. 3-D oblique MIP reformats and direct coronal reformats were performed. FINDINGS: HEART: Normal in size without focal cardiac abnormality. PULMONARY ARTERIES: Normal in caliber without filling defects to suggest pulmonary emboli. MEDIASTINUM: No hilar or mediastinal lymphadenopathy. LUNGS: No focal infiltrates or masses. PLEURAL SPACE: There is a moderate right pleural effusion with atelectasis of the right lower lobe in the posterior aspect of the right middle lobe. CHEST WALL SOFT TISSUES: There is a right-sided Mediport with its tip in the superior vena cava. VISUALIZED OSSEOUS STRUCTURES: Multiple scattered mixed lytic and sclerotic lesions are seen in the s keleton which represent either metastatic disease or treated metastases. VISUALIZED SUBDIAPHRAGMATIC STRUCTURES: The liver is nodular in appearance with scattered hypodensiti es throughout the liver concerning for metastatic disease. IMPRESSION: 1. No evidence of pulmonary thromboembolism 2. Moderate right pleural effusion with atelectasis of a large portion of the right lung 2. Osseous and hepatic lesions may represent metastatic disease or treated metastases.
[2020-06-28 11:54] LABS: INR-International Normal Ratio 1.3; PTT 38.2 sec (22.9-36.1); Prothrombin Time 16.2 sec (12.0-14.7)
[2020-06-28 12:14] LABS: Troponin I Less than 0.010 ng/mL (< 0.028)
--- NOTE | 2020-06-28 12:33 | PDOC.HHP ---
Hospitalist HPI - History of Present Illness chest pain History of Present Illness: PCP: Dr. Ricketts The patient is a 65-year-old male with past medical history significant for small cell lung carcinoma. He is finished his chemo and is to start radiation. He was going to be fitted for his radiation equipment today when he came in for chest pain. He states this chest pain has been radiating across his shoulders for the past 2 days with no exacerbating factors. Pain started while at rest. Patient denies shortness of breath, orthopnea, change in bowel or bladder patterns, contact with ill persons. The pain has remained dull and constant over the past 2 days with no relieving or exacerbating factors. Patient denies any known fever however he states he has been waking up sweating. Patient sta colten that he has had an ongoing headache which he has been taking tramadol for that helps. ED Course: VITAL SIGNS FriJun 28, 2020 08:24 NANCY Harrington Melanie BP: 145/91, MAP: 109, Pulse: 114, Resp: 25, O2 sat: 96 on (Room Air), Time: 06/28/2020 08:24. VITAL SIGNS FriJun 28, 2020 09:30 NANCY Harrington Melanie BP: 122/78, MAP: 92, Pulse: 101, Resp: 19, O2 sat: 96 on (Room Air), Time: 06/28/2020 09:30. VITAL SIGNS FriJun 28, 2020 10:30 NANCY Harrington Melanie BP: 127/74, MAP: 91, Pulse: 96, Resp: 16, O2 sat: 97 on (Room Air), Time: 06/28/2020 10:30. VITAL SIGNS FriJun 28, 2020 11:30 NANCY Harrnigton Melanie BP: 126/76, MAP: 92, Pulse: 90, Resp: 21, O2 sat: 95 on (Room Air), Time: 06/28/2020 11:30. Today in the ER the patient had completed a CTA of the chest, chest x-ray, lab work, and brain CT. He had 1 L of normal saline administered. Hospitalist ROS - Review of Systems Respiratory: denies: shortness of breath Cardiovascular: reports: chest pain All other systems reviewed; all pertinent +/- noted in HPI/Subj - Medication Medications: NKDA Current Medications: carvedilol TABLET : Strength - 3.125 mg : ORAL Patient Dose: 1 tab(s) Oral once a day. pravastatin TABLET : Strength - 80 mg : ORAL Patient Dose: once a day. Hospitalist History - Past Medical History Source: patient Cardiac: reports: HTN, Hyperlipidemia Pulmonary: reports: Other (small cell lung cancer) Musculoskeletal: reports: Chronic low back pain - Past Surgical History Past Surgical History: reports: Appendectomy - Family History Family History: reports: no pertinent history - Social History Smoking Status: Former smoker Alcohol: reports: Heavy (He drinks 1 beer a day) Drugs: reports: none Living Situation: With Family Activity level: uses cane/walker - Exam General Appearance: NAD, awake alert Eye: PERRL ENT: normocephalic atraumatic Neck: supple, no lymphadenopathy Heart: RRR, no murmur, no gallops, no rubs Respiratory: no wheezes Respiratory - other findings: diminished Left base Gastrointestinal: soft, non-tender, non-distended, normal bowel sounds Extremities: no edema Skin - other findings: lac to left great toe Psychiatric: normal affect, normal behavior, A&O x 3 Hospitalist Results - Labs Result Diagrams: 06/28/20 08:44 06/28/20 08:44 Lab results: WBC 9.1 thou/uL (4.8-10.8) 06/28/20 08:44 Hgb 10.2 g/dL (14.0-18.0) L 06/28/20 08:44 Hct 31.6 % (42.0-52.0) L 06/28/20 08:44 MCV 89.8 fL (78.0-98.0) 06/28/20 08:44 Plt Count 168 thou/uL (130-400) 06/28/20 08:44 Neutrophils % 76.4 % (42.0-75.0) H 06/28/20 08:44 Sodium 130 mmol/L (136-145) L 06/28/20 08:44 Potassium 3.6 mmol/L (3.5-5.1) 06/28/20 08:44 Chloride 95 mmol/L (98-107) L 06/28/20 08:44 Carbon Dioxide 25 mmol/L (23-31) 06/28/20 08:44 BUN 11 mg/dL (8.4-25.7) 06/28/20 08:44 Creatinine 0.78 mg/dL (0.7-1.3) 06/28/20 08:44 Glucose 144 mg/dL (80-115) H 06/28/20 08:44 Calcium 9.1 mg/dL (7.8-10.44) 06/28/20 08:44 Total Bilirubin 1.5 mg/dL (0.2-1.2) H 06/28/20 08:44 AST 50 U/L (5-34) H 06/28/20 08:44 ALT 40 U/L (8-55) 06/28/20 08:44 Alkaline Phosphatase 112 U/L (40-110) H 06/28/20 08:44 Creatine Kinase 214 U/L (30-200) H 06/28/20 08:44 Troponin I Less than 0.010 ng/mL (< 0.028) 06/28/20 11:38 Serum Total Protein 8.2 g/dL (5.8-8.1) H 06/28/20 08:44 Albumin 3.1 g/dL (3.4-4.8) L 06/28/20 08:44 - EKG Interpretation EKG: ST 109 bpm - Radiology Interpretation Chest x-ray Status: image reviewed by me, report reviewed by me Additional Comment: PORTABLE CHEST: Indications: Chest pain Correlation made to CT chest 06-06-2020. FINDINGS: Large right pleural effusion again noted with right basilar infiltrate and consolidation, similar to the CT of 06-06-2020. Left lung is clear. Mediport catheter appears adequately positioned. IMPRESSION: Right basilar opacification consistent with large effusion and bibasilar atelectasis and consolidatio n, similar to the CT of 06-06-2020. CT scan - chest Status: report reviewed by me Additional Comment: EXAM: CTA of the chest HISTORY: Chest pain and history of lung cancer COMPARISON: 02/16/2020 TECHNIQUE: Multiple contiguous axial images were obtained a CTA of the chest with contrast per pulmon lia embolism protocol. 3-D oblique MIP reformats and direct coronal reformats were performed. FINDINGS: HEART: Normal in size without focal cardiac abnormality. PULMONARY ARTERIES: Normal in caliber without filling defects to suggest pulmonary emboli. MEDIASTINUM: No hilar or mediastinal lymphadenopathy. LUNGS: No focal infiltrates or masses. PLEURAL SPACE: There is a moderate right pleural effusion with atelectasis of the right lower lobe in the posterior aspect of the right middle lobe. CHEST WALL SOFT TISSUES: There is a right-sided Mediport with its tip in the superior vena cava. VISUALIZED OSSEOUS STRUCTURES: Multiple scattered mixed lytic and sclerotic lesions are seen in the s keleton which represent either metastatic disease or treated metastases. VISUALIZED SUBDIAPHRAGMATIC STRUCTURES: The liver is nodular in appearance with scattered hypodensiti es throughout the liver concerning for metastatic disease. IMPRESSION: 1. No evidence of pulmonary thromboembolism 2. Moderate right pleural effusion with atelectasis of a large portion of the right lung 2. Osseous and hepatic lesions may represent metastatic disease or treated metastases. Hospitalist H&P A/P - Problem (1) Chest pain Code(s): R07.9 - CHEST PAIN, UNSPECIFIED Status: Acute (2) Pleural effusion Code(s): J90 - PLEURAL EFFUSION, NOT ELSEWHERE CLASSIFIED Status: Acute (3) Small cell carcinoma Code(s): C80.1 - MALIGNANT (PRIMARY) NEOPLASM, UNSPECIFIED Status: Chronic (4) Hypomagnesemia Code(s): E83.42 - HYPOMAGNESEMIA Status: Acute (5) Generalized weakness Code(s): R53.1 - WEAKNESS Status: Acute (6) Hyponatremia Code(s): E87.1 - HYPO-OSMOLALITY AND HYPONATREMIA Status: Acute - Plan Plan: Chest pain Possibly related to pleural effusion more than cardiac Pulmonology has already been in to see patient, see consultation note Initial 2 troponins negative, continue to trend Monitor on telemetry Echo on 02/18/2020 showed EF of 5560% with possible diastolic dysfunction Pleural effusion Denies shortness of breath, no orthopnea No significant change from previous scans No intervention needed at this time per pulmonary Hypertension Vital signs currently stable Continue to monitor blood pressures every 4 hours Restart home medications Small cell carcinoma Consult oncology, had appointment with them today but canceled due to emergency room visit Palliative care consult VTE prophylaxis with SCDs, GI prophylaxis ordered CODE STATUS: Full Surrogate decision maker: Chilo Cuba Memo Patient was discussed with attending physician, Dr. Roberts. Addendum - Attending - Attending Attestation Date/Time: 06/28/20 1500 Patient is a 65-year-old male with metastatic small cell lung cancer presents to the hospital with generalized weakness along with chest discomfort. The chest discomfort was substernal dull in nature without any aggravating or relieving factor. No nausea, vomiting or diaphoresis reported. The pain has been gradually worsening over the last 2 days. In the emergency room pulmonary embolism was ruled out. CT chest wall was consistent with worsening pleural effusion. His vital signs, labs and past medical history were reviewed. Overall patient appears generally ill. Lungs show diminished air entry at bases. Heart S1-S2 present regular. Abdomen was soft nontender. Troponins were negative. Will monitor the patient overnight and request pulmonary and oncology consultation. Replace magnesium. Next TSH was normal. A CT brain ronen l be done due to worsening headache. Plan was discussed with the patient and the son at the bedside I personally evaluated the patient and discussed the management with nurse practitioner. I agree with the History, Examination, Assessment and Plan documented above with any addition or exceptions noted below.
[2020-06-28 14:59] LABS: Magnesium 1.8 mg/dL (1.6-2.6); Phosphorus 2.6 mg/dL (2.3-4.7)
[2020-06-28 15:04] LABS: Troponin I Less than 0.010 ng/mL (< 0.028)
[2020-06-28] MEDS ORDERED: Ondansetron PF 4 MG/2 ML Vial IVP PRN ×2 (15:30→15:33)
[2020-06-28] MEDS ORDERED: Sodium Chloride 0.9% 1,000 ML IV SCH (15:30)
[2020-06-28] MEDS ORDERED: Acetaminophen 325 MG TAB PO PRN ×2 (15:30→15:33)
[2020-06-28] MEDS ORDERED: Ondansetron ODT 4 MG TAB SL PRN (15:30)
[2020-06-28] MEDS ORDERED: Ondansetron ODT 4 MG TAB PO PRN (15:33)
[2020-06-28 15:44] VITALS: BMI 22.6
[2020-06-28] MEDS ORDERED: Magnesium 2 GM/50 ML 2 GM in Premix Bag 1 BAG IVPB SCH (15:45)
[2020-06-28] MEDS ORDERED: Multivitamins, Adult 10 ML, Folic Acid 1 MG, Thiamine HCl 100 MG in Dextrose 5 %-0.45 %... IV SCH (16:00)
[2020-06-28] MEDS: Carvedilol 3.125 MG TAB PO SCH (17:30)
--- NOTE | 2020-06-28 18:50 | CON ---
DATE OF CONSULTATION: 06/28/2020 REASON FOR CONSULTATION: Extensive stage small-cell lung cancer with brain metastasis. HISTORY OF PRESENT ILLNESS: Mr. River is a pleasant 65-year-old gentleman, who was diagnosed with extensive stage small-cell lung cancer. He had a right lower lobe mass, right pleural effusion, extensive mediastinal and hilar lymphadenopathy. He also had multiple liver masses and bone metastasis. 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 MRI of the brain showed a 1 cm mass in posterior medial aspect of the right cerebellar hemisphere. There was also 1.4 cm mass in the upper posterior frontal lobe. He was asymptomatic from his brain metastasis, so he underwent chemo-immunotherapy prior to radiation. He completed 4 cycles of carboplatin, etoposide, and Tecentriq. He had a repeat CT scan on June 06, which showed partial remission to treatment with good clinical benefit. He had improved LFTs. He was then scheduled to have radiation and underwent a restaging MRI on June 20. This unfortunately showed progression of disease. He was scheduled today for simulation for his whole-brain radiation. Unfortunately, began to have chest pain and presented to the emergency room for evaluation. His chest pain is substernal and radiates to both shoulders. He underwent a CT angio, which was negative for pulmonary emboli. It did show a moderate right pleural effusion. The patient denies shortness of breath. No cough or hemoptysis. He was seen at bedside with his son present and is resting comfortably. PAST MEDICAL HISTORY: 1. Extensive stage small-cell lung cancer with brain, liver, and bone metastases, status post chemo-immunotherapy. 2. High blood pressure. 3. High cholesterol. PAST SURGICAL HISTORY: MediPort placement. ALLERGIES: NO KNOWN DRUG ALLERGIES. HOME MEDICATIONS: 1. Pravastatin. 2. Tramadol. 3. Amitriptyline. FAMILY HISTORY: No known family history of cancer. SOCIAL HISTORY: , has 3 children. 16 pack-year history of smoking. Prior alcohol use. REVIEW OF SYSTEMS: Positive for weakness, loss of appetite, fatigue, chest pain, and headache. PHYSICAL EXAMINATION: VITAL SIGNS: Temperature is 99.9, pulse is 97, respiratory rate 16, BP is 135/77. He is 98% on room air. GENERAL: This is a well-developed, well-nourished male, in no acute distress. HEENT: Normocephalic, atraumatic. Pupils are equal and reactive to light. NECK: Supple. CV: rate and rhythm. LUNGS: Clear. ABDOMEN: Distended. He has hepatomegaly. EXTREMITIES: No clubbing or cyanosis. 1+ bilateral lower extremity edema. SKIN: No rash. HEMATOLOGIC: No petechiae or purpura. NEUROLOGIC: Nonfocal. PERTINENT LABORATORY DATA AND X-RAYS: Current WBCs are 9.1, hemoglobin 10.2, hematocrit 31.6, platelet count is 168,000, 76% neutrophils, 14% lymphocytes. PT 16.2, INR is 1.3, and PTT is 38.2. Sodium 130, potassium 3.6, chloride 95, CO2 is 25, BUN is 11, creatinine 0.78, calcium 9.1, bilirubin 1.5, AST is 50, ALT is 40, alkaline phosphatase is 112, creatine kinase is 214. Troponin is negative. Serum total protein 8.2, albumin 3.1, globulin 5.1. B12 and folate are normal. Radiology per history of present illness. ASSESSMENT: 1. Extensive stage small-cell lung cancer. 2. Malignant right pleural effusion. 3. Chest pain. DISCUSSION: The patient has been admitted for further workup. Dr. Zamora has seen the patient and feels his chest pain is likely unrelated to his pleural effusion. He is complaining of headache and with recent progression of his brain tumors, I will start oral dexamethasone. I will notify Dr. Peralta of patient's admission and follow along with his hospital course. Thank you for the consult. Job ID: [id number]
--- NOTE | 2020-06-28 20:01 | CT ---
CT BRAIN WITHOUT CONTRAST: HISTORY: Headache, metastatic lung cancer FINDINGS: No evidence of acute infarct, hemorrhage, midline shift or abnormal extra-axial fluid collections is seen. The ventricular size is appropriate and the basilar cisterns are patent. The bony calvarium is intact. The visualized paranasal sinuses and mastoid air cells are well aerated. Enhancing masses noted on the MRI of 06/20/2020 are not satisfactorily visualized on this noncontraste d exam. IMPRESSION: No CT evidence of acute intracranial process.
[2020-06-28] MEDS: Dexamethasone 4 MG TAB PO SCH (20:10)
[2020-06-28] MEDS: Senokot S 8.6-50 MG TAB PO SCH (20:10)
[2020-06-28] MEDS ORDERED: Famotidine 20 MG TAB PO SCH (21:00)
[2020-06-29] MEDS ORDERED: Cholecalciferol 1,000 UNITS (25 MCG) TAB PO SCH (09:00)
[2020-06-29] MEDS: Carvedilol 3.125 MG TAB PO SCH ×2 (09:19→16:05)
[2020-06-29] MEDS: Dexamethasone 4 MG TAB PO SCH (09:19)
[2020-06-29] MEDS: Senokot S 8.6-50 MG TAB PO SCH (09:20)
[2020-06-29] MEDS: traMADol HCl 50 MG TAB PO PRN ×2 (09:22→16:04)
[2020-06-29 11:56] LABS: SARS-CoV-2 MS2 Positive; SARS-CoV-2 N Gene Negative; SARS-CoV-2 S Gene Negative; SARS-CoV-2 by NAA Not Detected (NotDetected); SARS-CoV-2 orf1ab Negative
--- NOTE | 2020-06-29 16:57 | DIS ---
DATE OF ADMISSION: 06/28/2020 DATE OF DISCHARGE: 06/29/2020 DISCHARGE DISPOSITION: Home. FOLLOWUP: 1. Follow up with Dr. Ricketts in 1 week. 2. Follow up with Oncology in 1 week. ALLERGIES: NO KNOWN DRUG ALLERGIES. THE PATIENT WAS SEEN AND EXAMINED ON THE DAY OF DISCHARGE. DENIES ANY NEW COMPLAINTS. NO CHEST PAIN, SHORTNESS OF BREATH, OR PALPITATIONS REPORTED. BRIEF HOSPITAL COURSE: The patient is a 65-year-old male with small cell lung cancer, presented to the emergency room with chest discomfort radiating to his shoulders over the last 2 days. He denies any aggravating or relieving factor. No nausea, vomiting, diaphoresis, or syncope reported. The pain is dull and constant. Please refer to the history and physical for further details. The patient was admitted to the hospital with a diagnosis of chest discomfort, rule out acute coronary syndrome. CT chest was negative for pulmonary embolism. It showed moderate right-sided pleural effusion with atelectasis of the large portion of the right lung with multiple metastatic lesions. The patient was evaluated by Pulmonary, Dr. Zamora, who recommended conservative management. He was evaluated by Oncology Service as well. Due to headache, he underwent a CT scan of the brain that was negative for intracranial bleed or midline shift. He has been started on dexamethasone per Oncology recommendation for intracranial metastasis. He will follow up with Oncology Service for radiation. His chest pain is probably secondary to underlying metastasis. FINAL DIAGNOSES: 1. Atypical chest pain, acute coronary syndrome ruled out. 2. Moderate right-sided pleural effusion, suspected malignant effusion. 3. Small cell lung cancer with metastasis. 4. Generalized weakness secondary to above. 5. Hypomagnesemia. 6. Hyponatremia. 7. Chronic anemia, suspected due to nutritional deficiency. 8. Abnormal liver function tests, probably secondary to metastasis. The patient and the family understand the above plan of care. Job ID: [id number]
[2020-06-29 17:08] VITALS: BP 134/67; TEMP 98.8
--- NOTE | 2020-07-05 12:54 | EKG ---
Test Reason : Blood Pressure : / mmHG Vent. Rate : 109 BPM Atrial Rate : 109 BPM P-R Int : 162 ms QRS Dur : 082 ms QT Int : 304 ms P-R-T Axes : 072 004 075 degrees QTc Int : 409 ms Sinus tachycardia Otherwise normal ECG Confirmed by NATIVIDAD CARRENO DO ([id number]), editor map SUSAN MORRISON ([id number]) on 07/05/2020 12:54:09 PM Referred By: Confirmed By:NATIVIDAD CARREON DO
== END 2020-06-29 16:40 | disposition home or self-care (01) ==
LOC: ERS 08:19 → 2NO 12:58
PROVIDERS: ADMIT Internal Medicine; ATTEND Internal Medicine
DX: R07.89 Other chest pain (principal); C34.90 Malignant neoplasm of unspecified part of unspecified bronchus or lung; C79.31 Secondary malignant neoplasm of brain; J91.0 Malignant pleural effusion; D64.9 Anemia, unspecified; E83.42 Hypomagnesemia; E87.1 Hypo-osmolality and hyponatremia; R94.5 Abnormal results of liver function studies; I10 Essential (primary) hypertension; E78.00 Pure hypercholesterolemia, unspecified; E78.5 Hyperlipidemia, unspecified; G89.29 Other chronic pain; M54.5 Low back pain; Z79.899 Other long term (current) drug therapy; Z87.891 Personal history of nicotine dependence; Z20.828 Contact with and (suspected) exposure to other viral communicable diseases
CPT/HCPCS: 70450; 71045; 71275; 77014; 77334; 80053; 82550; 82607; 82746; 83735; 84100; 84484 ×2; 85025; 85379; 85610; 85730; 93005; 96360; 97139 ×3; 99285; U0003; 36415; 87635; G0378; J1642; J3411; J3475; J7042; J8540

== ENCOUNTER 2020-07-12 11:47 | Day surgery (SDC) | payer MEDICARE ==
[2020-07-12 12:05] VITALS: BP 132/81; TEMP 99.6
[2020-07-12] MEDS ORDERED: ATEZOLIZUMAB 1,200 MG in Sodium Chloride 0.9% 250 ML 250 ML IVPB SCH (12:15)
== END 2020-07-12 13:34 | disposition home or self-care (01) ==
LOC: ONC/OP 11:47
PROVIDERS: ATTEND Internal Medicine Hematology & Oncology
DX: Z51.12 Encounter for antineoplastic immunotherapy (principal); C34.31 Malignant neoplasm of lower lobe, right bronchus or lung
CPT/HCPCS: 96413; J7050; J9022

== ENCOUNTER 2020-07-16 08:05 | Inpatient (IN) | payer MEDICARE, OTHER ==
[2020-07-16] MEDS ORDERED: Vancomycin 1 GM/200 ML BAG ONE (08:32)
[2020-07-16] MEDS ORDERED: Piperacillin/Tazobactam 4.5 GM VIAL ONE (08:32)
[2020-07-16 09:16] LABS: #Lymphocytes 1.1 thou/uL (1.20-3.40); %Lymphocytes 6.6 % (21.0-51.0); %Neutrophils 87.4 % (42.0-75.0); Hemoglobin 10.3 g/dL (14.0-18.0); Mean Corpuscular HGB CONC 31.5 g/dL (32.0-36.0); Mean Corpuscular Hemoglobin 27.5 pg (27.0-31.0); Mean Corpuscular Volume 87.3 fL (78.0-98.0); Mean Platelet Volume 7.7 fL (7.4-10.4); Platelet Count 291 thou/uL (130-400); RBC Distribution Width 17.1 % (11.5-14.5); Red Blood Cell (RBC) Count 3.75 mill/uL (4.70-6.10); White Blood Cell (WBC) Count 17.2 thou/uL (4.8-10.8)
[2020-07-16 09:33] LABS: ALT (SGPT) 208 U/L (8-55); AST (SGOT) 146 U/L (5-34); Albumin 2.7 g/dL (3.4-4.8); Alkaline Phosphatase 439 U/L (40-110); Anion Gap 17 mmol/L (10-20); BUN (Urea Nitrogen) 17 mg/dL (8.4-25.7); Bilirubin, Total 2.1 mg/dL (0.2-1.2); Calc. Creatinine Clearance 0 mL/min (70-130); Calcium 9.5 mg/dL (7.8-10.44); Carbon Dioxide 22 mmol/L (23-31); Chloride 98 mmol/L (98-107); Estimated GFR-MDRD Greater than 90; Glucose 103 mg/dL (80-115); Potassium 4.4 mmol/L (3.5-5.1); Protein, Total 8.7 g/dL (5.8-8.1); Sodium 133 mmol/L (136-145)
[2020-07-16] MEDS ORDERED: Iopamidol-370 76% 500 ML 1 ML ONE (10:09)
[2020-07-16 10:23] LABS: SARS-CoV-2 NAA Rapid Test Not Detected (NotDetected)
--- NOTE | 2020-07-16 11:52 | CT ---
CT ANGIOGRAM OF THE CHEST: HISTORY: Worsening shortness of breath. Difficulty breathing. COMPARISON: 06/28/2020. TECHNIQUE: CT angiogram of the chest is performed in the axial plane. Three-dimensional reformatted images are s ubmitted for interpretation. FINDINGS: Mediastinum: Progression of mediastinal lymphadenopathy. Video Producer right paratracheal lymph node measures 3.8 x 3.4 cm, precarinal lymph node measures 2.3 x 5 cm. There is abnormal soft tissue attenuation in the subcarinal region. Heart: Normal size. No significant pericardial fluid. Aorta: No aneurysm or dissection. Upper solid abdominal viscera: Persistent heterogeneous attenuation of the liver suggesting possible cirrhotic morphology with associated intrahepatic malignancy. Evaluation is limited on this exam. Trachea and central bronchi: Trachea is patent. There is narrowing of the right upper lobe bronchus, right mainstem bronchus, bronchus supplying the middle lobe. There is occlusion of the right lower lobe bronchus. Pleural spaces: Severe right pleural effusion which has increased since the previous exam. Components of loculation may be present along the anterior medial aspect of the pleural space. Lung parenchyma: Near complete consolidation of the right lung. Minimal aeration of the upper lobe an d superior segment of the right lower lobe. Postobstructive atelectasis and/or malignancy is favored. Additionally, there is presumed to be right hilar lymphadenopathy. Pneumothorax: None. Osseous structures: Heterogeneous attenuation of the osseous structures. Remote Schmorl's node along the superior endplate of T12. There are some scattered lucencies involving the distal thoracic spine and upper lumbar spine compatible with osseous metastases. Pulmonary arteries:Adequate contrast opacification of the left pulmonary arterial system to the level of the segmental arteries. No filling defect to suggest thromboembolism. In the right lung, there is adequate contrast opacification of the central arterial system. Evaluation of the lobar, segmental and subsegmental arteries is limited due to dense consolidation. IMPRESSION: 1. No evidence of pulmonary artery embolism in the left lung. 2. Progression of malignancy with worsening postobstructive atelectasis and presumed progression of t umor. 3. Near complete opacification the right lung. Worsening right-sided pleural effusion 4. Worsening mediastinal lymphadenopathy. 5. Redemonstration of osseous and hepatic metastases. Transcribed Date/Time: 07/16/2020 12:25 PM
--- NOTE | 2020-07-16 12:02 | PDOC.HHP ---
Hospitalist HPI - History of Present Illness Shortness of breath History of Present Illness: Mr. River is a 65-year-old male with a past medical history of small cell lung cancer currently undergoing chemotherapy treatment and radiation, hypertension, hyperlipidemia, chronic back pain, who presents with worsening shortness of breath. Patient reports that over the past 3 weeks he has had a worsening of his baseline respiratory status, with an acute worsening in the past 24 hours. Patient feels as though he struggling to get air in. Endorses chest pain that is worse with inspiration. Denies abdominal pain. Patient reports his last chemotherapy session was on 07/12/2020 4 days ago, and last radiation therapy was 2 days ago. Patient also reports generalized weakness, and reports that he gets extremely short of breath when trying to walk short distances. Patient is normally independently mobile. Emergency room initial vital signs 116/70, 117, 28, 98.4, 100% room air. EKG with no ischemic changes. BUN/CR 17/0.81. White blood cell count elevated at 17.2. H/H 10.3/32.7. Lactic acid 3.1 AST/ALT 146/208. Total bilirubin 2.1. Sodium 133, potassium 4.4 .Patient received vancomycin, Zosyn in the emergency room. Hospitalist ROS - Review of Systems Constitutional: reports: weakness Eyes: denies: pain, vision change, conjunctivae inflammation, eyelid inflammation, redness, other ENT: denies: ear pain, ear discharge, nose pain, nose discharge, nose congestion, mouth pain, mouth swelling, throat pain, throat swelling, other Respiratory: reports: shortness of breath, SOB with excertion. denies: cough, dry, hemoptysis, pleuritic pain, sputum, wheezing, other Cardiovascular: reports: chest pain, orthopnea. denies: palpitations, paroxysmal noc. dyspnea, edema, light headedness, other Gastrointestinal: denies: nausea, vomiting, abdominal pain, diarrhea, constipation, melena, hematochezia, other Genitourinary: denies: dysuria, frequency, incontinence, hematuria, retention, other Musculoskeletal: denies: neck pain, shoulder pain, arm pain, back pain, hand pain, leg pain, foot pain, other Skin: denies: rash, lesions, adelina, bruising, other Neurological: denies: weakness, numbness, incoordination, change in speech, confusion, seizures, other - Medication Medications: Home medications include Carvedilol 3.125 mg Pravastatin 80 mg Patient reports recently being prescribed a steroid, however is unable to confirm dosages. Will confirm dosages with family. No known drug allergies Hospitalist History - Past Medical History Musculoskeletal: reports: Chronic low back pain Other Medical History: Past medical history includes Small cell lung cancer currently undergoing chemotherapy and radiation Hypertension Hyperlipidemia - Past Surgical History Past Surgical History: reports: Appendectomy Other Surgical History: Past surgical history of appendectomy - Family History Other Family History: Patient denies family history of cancer, diabetes, heart disease. - Social History Smoking Status: Never smoker Alcohol: reports: Heavy (He drinks 1 beer a day) Drugs: reports: none Living Situation: With Family Activity level: independent ambulation - Exam General Appearance: NAD, awake alert Eye: PERRL, anicteric sclera ENT: normocephalic atraumatic, no oropharyngeal lesions, moist mucosa Neck: supple, symmetric, no JVD, no thyromegaly, no lymphadenopathy, no carotid bruit Heart: no murmur, no gallops, no rubs Heart - other findings: Tachycardic Respiratory - other findings: Absence of breath sounds in the right lung field Gastrointestinal: soft, non-tender, non-distended, normal bowel sounds, no palpable masses, no hepatomegaly, no splenomegaly, no bruit Extremities: no cyanosis, no clubbing, no edema Skin: normal turgor, no lesions, no rashes Neurological: cranial nerve grossly intact, normal sensation to touch, no weakness, no focal deficits, no new deficit Musculoskeletal: normal tone, normal strength, no muscle wasting Psychiatric: normal affect, normal behavior, A&O x 3 Hospitalist Results - Labs Result Diagrams: 07/16/20 08:54 07/16/20 08:54 Lab results: WBC 17.2 thou/uL (4.8-10.8) H 07/16/20 08:54 Hgb 10.3 g/dL (14.0-18.0) L 07/16/20 08:54 Hct 32.7 % (42.0-52.0) L 07/16/20 08:54 MCV 87.3 fL (78.0-98.0) 07/16/20 08:54 Plt Count 291 thou/uL (130-400) 07/16/20 08:54 Neutrophils % 87.4 % (42.0-75.0) H 07/16/20 08:54 Sodium 133 mmol/L (136-145) L 07/16/20 08:54 Potassium 4.4 mmol/L (3.5-5.1) 07/16/20 08:54 Chloride 98 mmol/L (98-107) 07/16/20 08:54 Carbon Dioxide 22 mmol/L (23-31) L 07/16/20 08:54 BUN 17 mg/dL (8.4-25.7) 07/16/20 08:54 Creatinine 0.81 mg/dL (0.7-1.3) 07/16/20 08:54 Glucose 103 mg/dL (80-115) 07/16/20 08:54 Lactic Acid 3.1 mmol/L (0.5-2.2) H 07/16/20 08:54 Calcium 9.5 mg/dL (7.8-10.44) 07/16/20 08:54 Total Bilirubin 2.1 mg/dL (0.2-1.2) H 07/16/20 08:54 AST 146 U/L (5-34) H 07/16/20 08:54 ALT 208 U/L (8-55) H 07/16/20 08:54 Alkaline Phosphatase 439 U/L (40-110) H 07/16/20 08:54 Serum Total Protein 8.7 g/dL (5.8-8.1) H 07/16/20 08:54 Albumin 2.7 g/dL (3.4-4.8) L 07/16/20 08:54 Hospitalist H&P A/P - Plan Plan: Malignant effusion 65-year-old male with past medical history of small cell lung cancer currently undergoing treatment with chemo and radiation therapy who presents with worsening shortness of breath. CXR shows complete whiteout of right lung. Known malignant effusion. CT lung shows progression of malignancy with worsening postobstructive atelectasis and presumable progression of tumor. Near complete opacification of the right lung with worsening right-sided pleural effusion, worsening mediastinal lymphadenopathy, and redemonstration of osseous and hepatic mets. Patient currently saturating at 98% on 2 L nasal cannula. Plan for tunneled pleural cathter with CV surgery tomorrow. Plan Pulmonology consult, recommendations appreciated -CV surgery with plans to place tunneled pleural catheter Closely monitor respiratory status, supplemental oxygen as needed -Telemetry Plan for drainage catheter tomorrow Sepsis without septic shock Patient presented meeting SIRS criteria with elevated white blood cell count of 17.2, lactic acid of 3.1, and tachycardia. Patient received vancomycin and Zosyn in the emergency department. Blood cultures pending. We will continue IV antibiotics, and continue to trend lactic acid. Plan IV antibiotics, continue vancomycin, zosyn Trend fever curve, white blood cell count Lactic acidfollow blood cultures Shortness of breath SOB likely 2/2 worsening of known malignant effusion. Will send for RVP and COVID. Plan -RVP, COVID -Airborne precautions -Treatment as above for effusion Liver metastases Patient has history of known liver mets, LFTs elevated on admission with AST/ALT 146/208, T bili 2.1. Plan Treatment per oncology team We will check PT/INR Continue to monitor Small cell lung cancer with metastases History of small cell lung cancer currently undergoing treatment with chemo therapy and radiation with Dr. Cheung. Last chemo last Friday, last radiation this Friday. Will consult oncology team for further guidance. Plan BMP, Ca, Uric acid, LDH Oncology consult, recommendations appreciated Metastatic Pain Patient reports low back pain which is chronic, but worsening for him. Likely secondary to osseous mets. Pt denies bladder/bowel incontinence or saddle anesthesia. Plan -Pain control with tramadol -Closely monitor respiratory status Hypertension Hx of HTN on Carvediolol. Will hold in setting of sepsis. Hyperlipidemia Will continue home pravastatin. DVT Prophylaxis: Heparin, SCDs FULL CODE Discussed with patient and family member (son). Pt has named his three children as his MDM. Case discussed with attending physician, Dr. Choi.
[2020-07-16 12:22] LABS: Lactic Acid 2.5 mmol/L (0.5-2.2)
--- NOTE | 2020-07-16 12:41 | RAD ---
PORTABLE CHEST: DATE: 07/16/2020. PROVIDED CLINICAL HISTORY: Cough. FINDINGS: Comparison 06/28/2020. Interval essentially complete opacification of the right hemithorax without me diastinal shift. The visualized portions of the cardiac silhouette appear unchanged. The left lung remains clear. Right-sided implanted port is again seen in similar position. IMPRESSION: Interval development of opacification of essentially the entire right hemithorax presumably reflectin g pleural fluid. POS: MARISA
[2020-07-16] MEDS ORDERED: Ondansetron PF 4 MG/2 ML Vial IVP PRN ×2 (13:29→15:08)
[2020-07-16] MEDS ORDERED: Ondansetron ODT 4 MG TAB PO PRN (13:30)
[2020-07-16] MEDS ORDERED: Acetaminophen 325 MG TAB PO PRN (13:30)
[2020-07-16 13:42] LABS: Calcium 9.1 mg/dL (7.8-10.44); Phosphorus 3.8 mg/dL (2.3-4.7); Uric Acid 4.2 mg/dL (3.5-7.2)
[2020-07-16 13:53] LABS: Troponin I Less than 0.010 ng/mL (< 0.028)
[2020-07-16 14:13] LABS: INR-International Normal Ratio 1.3; PTT 34.4 sec (22.9-36.1); Prothrombin Time 16.8 sec (12.0-14.7)
[2020-07-16] MEDS ORDERED: Morphine 4 MG/ML VIAL SLOW IVP PRN (15:07)
--- NOTE | 2020-07-16 15:11 | PDOC.EVN ---
Event Note - Event Note Event Note: Pt evaluated and discussed with SAM Mireles. 65 y/o male with met lung cancer, recurrent malignant effusion and difficulty breathing over the past few days. He's had poor sleep secondary to pain, nausea. Denies any vomiting or diarrhea/constipation. Exam - VS reviewed gen - alert, responsive, in NAD. Cachectic appearing Lungs - absent breath sounds throughout right side Heart 0 normal s1/s2 without audible murmurs abd - soft, + bowel sounds Ext - no edema Labs reviewed - WBC 17 k, elevated lft's Imp: Recurrent malignant effusion in the context of metastatic cancer - on chemo and radiation Sepsis - concern for pneumonia with significant right pleural effusion, with patient currently on steroids Elevated lft's with liver mets Hyponatremia - mild Anemia - on chemo Plan: - Pulm and [facility] consult - plan for tunneled cath tomorrow - Onc consult for recs on antibiotics, other treatment - Continue zosyn and Vanc - prn oral and IV pain meds - schedule zofran for nausea - Pall care consult - melatonin for sleep - supplements for nutrition - continue home meds - dvt prophy wiht heparin due to planned procedure - gi prophy not indicated code status full d/w patient, son, and daughter by phone - no questions or further needs at end of eval
[2020-07-16] MEDS: Heparin 5,000 UNITS/ML VIAL SC SCH ×2 (15:40→20:34)
[2020-07-16] MEDS: Ondansetron ODT 8 MG TAB SL SCH ×2 (15:40→20:34)
[2020-07-16] MEDS: Piperacillin/Tazobactam 3.375 GM in Sodium Chloride 0.9% 100 ML IVPB SCH ×2 (15:40→20:33)
[2020-07-16 16:37] LABS: Troponin I Less than 0.010 ng/mL (< 0.028)
--- NOTE | 2020-07-16 19:53 | CON ---
DATE OF CONSULTATION: 07/16/2020 HISTORY OF PRESENT ILLNESS: Mr. River is a 65-year-old male. He has small- cell lung cancer. He has been treated since the springtime. He had a CAT scan done on June 28 of this year, which showed a large right pleural effusion. He had bone and liver mets seen then. CAT scan done today shows mediastinal lymphadenopathy. Right upper lobe bronchus, right mainstem bronchus, and right lower lobe bronchus were narrowed and perhaps right lower lobe bronchus is occluded. There is a large right effusion. PAST MEDICAL HISTORY: Remarkable for lipid disorder, hypertension, and appendectomy. SOCIAL HISTORY: He is not a smoker, not a drinker. MEDICATIONS: Prior to admission, Coreg and pravastatin. He is recently on steroids apparently. FAMILY HISTORY: Negative for lung disease in early age. REVIEW OF SYSTEMS: Ten points otherwise negative. PHYSICAL EXAMINATION: VITAL SIGNS: . He is afebrile. Oximetry is 99% on room air and blood pressure 134/67. HEENT: Pupils are equal. Sclerae are anicteric. Throat is clear. LUNGS: Remarkable for absent breath sounds on the right. HEART: Regular rhythm. No S3. ABDOMEN: Soft and nontender. EXTREMITIES: Without clubbing, cyanosis, or edema. IMAGING: Radiographs have been reviewed. DISCUSSION: He obviously has progression of his malignancy in spite of treatment. It is unclear whether or not his right lung will re-expand. Probably the best long-term management for him is to place a PleurX catheter in hopes that his lung expands to fill the space. Even his progression, prognosis is quite guarded. This is a 50 min consult with greater than 50% of the time spent on the unit with coordination of care. Job ID: [id number] MTDD
[2020-07-16] MEDS: Atorvastatin Calcium 20 MG TAB PO SCH (20:34)
[2020-07-16] MEDS: Senokot S 8.6-50 MG TAB PO SCH (20:35)
[2020-07-16] MEDS: Vancomycin HCl 1.25 GM in Sodium Chloride 0.9% 250 ML 250 ML IVPB SCH (21:35)
[2020-07-16] MEDS: Melatonin 3 MG TAB PO PRN (23:09)
--- NOTE | 2020-07-16 23:26 | CON ---
DATE OF CONSULTATION: 07/16/2020 HISTORY OF PRESENT ILLNESS: Mr. River is a 65-year-old gentleman with a history of metastatic small cell lung cancer who presents with a completely opacified right chest. This has worsened since his last evaluation by Dr. Zamora. I have been asked to see and place a PleurX catheter. He is currently undergoing chemotherapy, his last chemotherapy session was on 07/12, and last radiation was 2 days ago on 07/14. Currently, he is resting comfortably with no significant shortness of breath on 2 L of oxygen with oxygen saturations of 95%. PAST MEDICAL HISTORY: 1. Metastatic small cell lung cancer. 2. Hypertension. 3. Dyslipidemia. PAST SURGICAL HISTORY: 1. Appendectomy. 2. Right MediPort. SOCIAL HISTORY: He has never used tobacco. REVIEW OF SYSTEMS: A 10-point review of systems is negative except as above. PHYSICAL EXAMINATION: GENERAL: This is a thin, comfortable gentleman resting on the telemetry unit. VITALS: Height is 5 feet 10 inches and weight is 150 pounds. Temperature is 99.2, pulse is 105, blood pressure is 133/90. HEENT: Sclerae are nonicteric. Pupils are equal and round bilaterally. NECK: Supple. He has a chest wall MediPort on the right. His lungs have clear breath sounds on the left. He has diminished/absent breath sounds on the right. ABDOMEN: Soft and nontender. EXTREMITIES: No edema. ASSESSMENT AND PLAN: I discussed PleurX catheter placement. He seems comfortable with management at home. We will plan to place a catheter tomorrow in the operating room. Job ID: [id number]
[2020-07-17] MEDS: Piperacillin/Tazobactam 3.375 GM in Sodium Chloride 0.9% 100 ML IVPB SCH ×4 (04:04→21:31)
[2020-07-17] MEDS: Ondansetron ODT 8 MG TAB SL SCH ×3 (04:04→17:05)
[2020-07-17] MEDS: traMADol HCl 50 MG TAB PO PRN (04:16)
[2020-07-17 05:12] LABS: Anion Gap 12 mmol/L (10-20); BUN (Urea Nitrogen) 16 mg/dL (8.4-25.7); Calc. Creatinine Clearance 94 mL/min (70-130); Calcium 8.7 mg/dL (7.8-10.44); Carbon Dioxide 26 mmol/L (23-31); Chloride 100 mmol/L (98-107); Estimated GFR-MDRD Greater than 90; Glucose 155 mg/dL (80-115); Potassium 4.3 mmol/L (3.5-5.1); Sodium 134 mmol/L (136-145)
[2020-07-17] MEDS: Carvedilol 3.125 MG TAB PO SCH (05:26)
[2020-07-17 05:29] LABS: Band 6 % (5-11); Hemoglobin 8.7 g/dL (14.0-18.0); Hypochromia SLIGHT = 6-15 cells (100X) (0-5/hpf); Lymphocytes 8 % (21-51); MDiff Complete? YES; Mean Corpuscular HGB CONC 31.3 g/dL (32.0-36.0); Mean Corpuscular Hemoglobin 27.4 pg (27.0-31.0); Mean Corpuscular Volume 87.5 fL (78.0-98.0); Mean Platelet Volume 7.9 fL (7.4-10.4); Metamyelocyte 1 % (0-0); Monocytes 12 % (0-10); Neutrophil 73 % (42-75); Platelet Count 252 thou/uL (130-400); Platelet Morphology Comment Appears Adequate; RBC Distribution Width 17.1 % (11.5-14.5); Red Blood Cell (RBC) Count 3.19 mill/uL (4.70-6.10); White Blood Cell (WBC) Count 16.4 thou/uL (4.8-10.8)
[2020-07-17] MEDS: Dexamethasone 4 MG TAB PO SCH (08:35)
[2020-07-17] MEDS: Heparin 5,000 UNITS/ML VIAL SC SCH (08:36)
[2020-07-17] MEDS: Senokot S 8.6-50 MG TAB PO SCH ×2 (08:38→21:32)
[2020-07-17] MEDS: Vancomycin HCl 1.25 GM in Sodium Chloride 0.9% 250 ML 250 ML IVPB SCH ×2 (11:03→22:13)
--- NOTE | 2020-07-17 11:15 | PDOC.HOSPP ---
- Subjective Encounter Date: 07/17/20 (f/u malignant pleural effusion) Encounter Time: 11:13 Subjective: Pt c/o pain being unchanged - rates it as 9/10 in intensity, has not received IV morphine. he reports improvement but not resolution of the nausea. He denies any new symptoms. - Objective Vital Signs & Weight: Vital Signs (12 hours) Temp Pulse Resp BP Pulse Ox 07/17/20 08:57 98 07/17/20 07:15 98.9 F 106 H 21 H 123/70 98 07/17/20 04:00 98.5 F 110 H 18 134/80 100 Weight Weight 150 lb I&O: 07/16/20 07/17/20 07/18/20 06:59 06:59 06:59 Intake Total 1020 Balance 1020 Result Diagrams: 07/17/20 04:31 07/17/20 04:31 EKG Reviewed by me: Yes (tele - sinus 100-120's) Hospitalist ROS - Medication Medications: Active Medications Generic Name Dose Route Start Last Admin Trade Name Freq PRN Reason Stop Dose Admin Atorvastatin Calcium 20 mg 07/16/20 21:00 07/16/20 20:34 Atorvastatin Calcium 20 Mg Tab PO 20 mg HS RAJNI Administration Carvedilol 3.125 mg 07/17/20 09:00 07/17/20 05:26 Carvedilol 3.125 Mg Tab PO 3.125 mg DAILY RAJNI Administration Dexamethasone 4 mg 07/17/20 09:00 07/17/20 08:35 Dexamethasone 4 Mg Tab PO 4 mg DAILY RAJNI Administration Piperacillin Sod/Tazobactam 100 mls @ 200 mls/hr 07/16/20 15:00 07/17/20 08:36 Sod 3.375 gm/ Sodium Chloride IVPB 100 mls 0300,0900,1500,2100 RAJNI Administration Vancomycin HCl 1.25 gm/ Sodium 250 mls @ 166.667 mls/hr 07/16/20 22:00 07/16/20 21:35 Chloride IVPB 250 mls 1000,2200 RAJNI Administration Melatonin 3 mg 07/16/20 15:16 07/16/20 23:09 Melatonin 3 Mg Tab PO 3 mg HS PRN Administration Insomnia Memantine 5 mg 07/17/20 09:00 07/17/20 08:35 Memantine Hcl 5 Mg Tab PO 5 mg DAILY RAJNI Administration Ondansetron HCl 4 mg 07/16/20 15:15 07/17/20 08:42 Ondansetron Odt 8 Mg Tab SL 4 mg Q6H RAJNI Administration Pantoprazole Sodium 40 mg 07/17/20 09:00 07/17/20 08:36 Pantoprazole 40 Mg Tab PO 40 mg DAILY RAJNI Administration Senna/Docusate Sodium 1 tab 07/16/20 21:00 07/17/20 08:38 Senokot S 8.6-50 Mg Tab PO Not Given BID RAJNI Tramadol HCl 50 mg 07/16/20 14:49 07/17/20 04:16 Tramadol Hcl 50 Mg Tab PO 50 mg Q6H PRN Administration Moderate Pain (4-6) - Exam General Appearance: NAD Heart: RRR, no murmur Respiratory: no wheezes, no ronchi Respiratory - other findings: absent breath sounds right side, normal on left Gastrointestinal: soft, non-tender, non-distended, normal bowel sounds Extremities: no cyanosis, no clubbing, no edema Psychiatric: normal affect Hosp A/P (1) Sepsis Code(s): A41.9 - SEPSIS, UNSPECIFIED ORGANISM Status: Acute Qualifiers: Sepsis type: sepsis due to unspecified organism (2) Malignant pleural effusion Code(s): J91.0 - MALIGNANT PLEURAL EFFUSION Status: Chronic (3) Anemia Code(s): D64.9 - ANEMIA, UNSPECIFIED Status: Chronic (4) Abnormal LFTs Code(s): R94.5 - ABNORMAL RESULTS OF LIVER FUNCTION STUDIES Status: Chronic (5) Hyponatremia Code(s): E87.1 - HYPO-OSMOLALITY AND HYPONATREMIA Status: Chronic (6) Small cell carcinoma Code(s): C80.1 - MALIGNANT (PRIMARY) NEOPLASM, UNSPECIFIED Status: Chronic - Plan Sepsis concern with malignant pleural effusion and compression of right lung - continue Vanc and Zosyn - pleur-x cath today by CV[facility] Small cell carcinoma with mets/pleural effusion - worsening by CT scan = Oncology consult - Pall Care consult Worsening anemia - d/c heparin - check FOBT - check vit b12, iron levels Pain associated with above - prn morphine, tramadol prn - Pall care consult for recs on meds dvt prophy - scd's gi prophy - not indicated code status full reviewed plan of care with patient and family member in the room, no questions or further needs at end of eval. pt at high risk in current condition
[2020-07-17] MEDS: Morphine 2 MG/ML VIAL SLOW IVP PRN (11:22)
[2020-07-17] MEDS ORDERED: CEFAZOLIN 2 GM in Premix Bag 1 BAG IVPB SCH (13:00)
[2020-07-17] MEDS ORDERED: Midazolam HCl 2 mg/2 ml Vial ONE (14:28)
[2020-07-17] MEDS ORDERED: Ketamine 50 MG/ML (10ML VIAL) ONE (14:29)
[2020-07-17] MEDS ORDERED: Piperacillin/Tazobactam 3.375 GM VIAL ONE (14:58)
[2020-07-17] MEDS ORDERED: Sodium Chloride 0.9% 100 ML ONE (14:59)
--- NOTE | 2020-07-17 16:27 | OP ---
DATE OF PROCEDURE: 07/17/2020 PREOPERATIVE DIAGNOSIS: Recurrent malignant right pleural effusion. POSTOPERATIVE DIAGNOSIS: Recurrent malignant right pleural effusion. PROCEDURE PERFORMED: Right PleurX catheter placement. ANESTHESIA: 1% lidocaine for local with IV sedation. ESTIMATED BLOOD LOSS: Minimal. FINDINGS: 3 L of pleural fluid evacuated. DESCRIPTION OF PROCEDURE: After consent was obtained, the patient was brought to the operating room and placed in supine position on the operating room table. Appropriate central line and monitors were placed and IV sedation begun. The right chest wall was prepped and draped in usual sterile fashion. The chest was anesthetized with 1% lidocaine. Percutaneous access to the pleural cavity was obtained and a guidewire passed. Catheter was then tunneled from the midclavicular line around to the catheter access site. Access site was then dilated and Peel-Away sheath placed. Catheter was passed through the Peel-Away sheath. Evacuation was begun and three total L of fluid was evacuated. A sterile dressing was applied. The patient tolerated the procedure well, was transferred to the recovery room in stable condition. Job ID: [id number]
[2020-07-17] MEDS: Ondansetron ODT 4 MG TAB SL SCH ×2 (18:35→23:49)
--- NOTE | 2020-07-17 21:03 | CON ---
DATE OF CONSULTATION: REASON FOR CONSULTATION: Small cell lung cancer. HISTORY OF PRESENT ILLNESS: Mr. River is a pleasant 65-year-old gentleman who has extensive stage small cell lung cancer with brain mets. He completed four cycles of chemo-immunotherapy and has been on maintenance Tecentriq. He recently completed whole-brain radiation. He has been struggling with pleural effusions since diagnosis and was in fact admitted to this facility in May with chest pain and pleural effusion. He also had a headache. He was started on steroids, and his breathing and headache resolved. Unfortunately became even more short of breath over the weekend and presented to our emergency room for evaluation. He had a large right pleural effusion with near complete opacification of the right lung. He underwent a PleurX catheter today with [address] scan also showed progression of malignancy with worsening postobstructive atelectasis. He also had worsening mediastinal lymphadenopathy. His son states that he is eating poorly and has lost more weight. The patient was seen in the PACU. He is lightly sedated, but answers my questions. He is in no acute distress. PAST MEDICAL HISTORY: 1. Extensive stage small cell lung cancer with brain, liver, and bone mets. 2. Right pleural effusion. 3. Hypertension. 4. High cholesterol. PAST SURGICAL HISTORY: MediPort placement. ALLERGIES: NO KNOWN DRUG ALLERGIES. HOME MEDICATIONS: 1. Pravastatin. 2. Tramadol. 3. Amitriptyline. 4. Decadron. FAMILY HISTORY: No family history of cancer. SOCIAL HISTORY: , has 3 children. Prior smoker. REVIEW OF SYSTEMS: A 12-point review system is negative. PHYSICAL EXAMINATION: VITAL SIGNS: He is afebrile, heart rate is 105, respiratory rate is 16, blood pressure is 116/73. He is 100% on face mask. GENERAL: This is a cachectic male, in no acute distress. HEENT: Normocephalic, atraumatic. Pupils are equal and reactive to light. CV: Regular rate and rhythm. LUNGS: Clear anterior. ABDOMEN: He has palpable hepatosplenomegaly. Bowel sounds are positive. EXTREMITIES: No clubbing or cyanosis. NEUROLOGIC: Nonfocal. PERTINENT LABORATORY DATA AND X-RAYS: WBCs are 16.4, hemoglobin 8.7, hematocrit 27.9, platelet count 252,000. He has 73% neutrophils, 6% bands, 8% lymphocytes. PT 16.8, INR is 1.3, and PTT is 34.4. Sodium is 134, potassium 4.3, chloride 100, CO2 is 26, BUN is 16, creatinine 0.73, lactic acid 2.5, calcium 8.7, LDH is 1409. Troponin is negative. Bilirubin is 2.1, AST is 146, ALT is 208, and alkaline phosphatase is 439. Serum total protein is 8.7, albumin 2.7, and globulin 6. COVID PCR negative. RADIOLOGY: Per HPI. ASSESSMENT: 1. Extensive stage small cell lung cancer with likely progression. 2. Large right pleural effusion, status post PleurX catheter. 3. Elevated LFTs, likely secondary to malignancy versus immunotherapy. DISCUSSION: The patient had a PleurX cath placed today with 3 L of fluid. He has extremely poor appetite and we will consider megestrol. Son states he is having an increase in pain and he will likely need [place] upon discharge. He clearly has progression on his CT scan. We will discuss further with Dr. Ray. We will follow along with his hospital course. Thank you for the consult. Job ID: [id number]
[2020-07-17] MEDS: Atorvastatin Calcium 20 MG TAB PO SCH (21:31)
[2020-07-17 21:56] LABS: Vancomycin, Trough 15.3 ug/mL
[2020-07-17] MEDS: Melatonin 3 MG TAB PO PRN (22:14)
[2020-07-18] MEDS: Piperacillin/Tazobactam 3.375 GM in Sodium Chloride 0.9% 100 ML IVPB SCH ×4 (03:43→20:34)
[2020-07-18] MEDS: Morphine 2 MG/ML VIAL SLOW IVP PRN (03:51)
[2020-07-18 04:42] LABS: #Lymphocytes 0.8 thou/uL (1.20-3.40); #Monocytes 0.9 thou/uL (0.11-0.59); #Neutrophils 11.5 thou/uL (1.40-6.50); %Basophils 0.1 % (0.0-1.0); %Lymphocytes 5.8 % (21.0-51.0); %Monocytes 6.5 % (0.0-10.0); %Neutrophils 87.5 % (42.0-75.0); Hemoglobin 8.3 g/dL (14.0-18.0); Mean Corpuscular HGB CONC 32.3 g/dL (32.0-36.0); Mean Corpuscular Hemoglobin 28.3 pg (27.0-31.0); Mean Corpuscular Volume 87.7 fL (78.0-98.0); Mean Platelet Volume 8.2 fL (7.4-10.4); Platelet Count 206 thou/uL (130-400); RBC Distribution Width 16.9 % (11.5-14.5); Red Blood Cell (RBC) Count 2.94 mill/uL (4.70-6.10); White Blood Cell (WBC) Count 13.1 thou/uL (4.8-10.8)
[2020-07-18 05:09] LABS: Anion Gap 11 mmol/L (10-20); BUN (Urea Nitrogen) 15 mg/dL (8.4-25.7); Calc. Creatinine Clearance 96 mL/min (70-130); Calcium 8.5 mg/dL (7.8-10.44); Carbon Dioxide 27 mmol/L (23-31); Chloride 103 mmol/L (98-107); Estimated GFR-MDRD Greater than 90; Glucose 178 mg/dL (80-115); Potassium 4.3 mmol/L (3.5-5.1); Sodium 137 mmol/L (136-145)
[2020-07-18] MEDS: Ondansetron ODT 4 MG TAB SL SCH ×3 (05:44→17:06)
[2020-07-18] MEDS: Carvedilol 3.125 MG TAB PO SCH (09:50)
[2020-07-18] MEDS: Dexamethasone 4 MG TAB PO SCH (09:51)
[2020-07-18] MEDS: traMADol HCl 50 MG TAB PO PRN (09:52)
[2020-07-18] MEDS: Senokot S 8.6-50 MG TAB PO SCH ×2 (09:54→20:35)
[2020-07-18] MEDS ORDERED: Dexamethasone 4 MG TAB PO SCH (11:00)
--- NOTE | 2020-07-18 11:18 | PDOC.PALPN ---
Palliative Progress Note - Subjective Weakness, poor appetite. Continued pain that presents to right side of abdomen, radiates around back and upwards to chest. states that pain medication mildly mitigates pain. Assistance with ADL's. - Objective Vital Signs: Vital Signs - Most Recent Temp Pulse Resp BP Pulse Ox 98.5 F 115 H 19 120/71 100 07/18/20 07:28 07/18/20 09:59 07/18/20 07:28 07/18/20 09:59 07/18/20 07:28 - Physical Exam Constitutional: cachectic, emaciated, ill appearing HEENT: moist MMs Respiratory: no wheezing, diminished lung sound Cardiovascular: RRR Gastrointestinal: soft Deviation from normal: distended Genitourinary: continent Musculoskeletal: no cyanosis, pulses present, diffuse muscle atrophy Neurology: moves all 4 limbs, no focal deficits Skin: cap refill <2 seconds Psychiatric: A&O x 3, normal mood - Assessment (1) Sepsis Code(s): A41.9 - SEPSIS, UNSPECIFIED ORGANISM Current Visit: Yes Status: Acute Qualifiers: Sepsis type: sepsis due to unspecified organism (2) Malignant pleural effusion Code(s): J91.0 - MALIGNANT PLEURAL EFFUSION Current Visit: Yes Status: Chronic (3) Abdominal pain Code(s): R10.9 - UNSPECIFIED ABDOMINAL PAIN Current Visit: No Status: Acute (4) Generalized weakness Code(s): R53.1 - WEAKNESS Current Visit: No Status: Acute (5) Metastatic adenocarcinoma to liver Code(s): C78.7 - SECONDARY MALIG NEOPLASM OF LIVER AND INTRAHEPATIC BILE DUCT Current Visit: No Status: Acute (6) Palliative care encounter Code(s): Z51.5 - ENCOUNTER FOR PALLIATIVE CARE Current Visit: No Status: Acute (7) Small cell carcinoma Code(s): C80.1 - MALIGNANT (PRIMARY) NEOPLASM, UNSPECIFIED Current Visit: No Status: Chronic - Plan Plan: Discussed with Dr Canales. Continues with pain, minimal relief with current medications. Increased Dexamethasone Added Hydrocodone and Lidocaine patch Megase for appetite stimulation Discussed with patient and his oldest son. Hopeful transition to home setting where he lives with his son. Continues to require assistance with ADL. [35] minutes spent on this encounter with >50% of the time in counseling and coordination of care. - ROS Constitutional: loss appetite, malaise, weakness ENT: other (Negative for throat pain, difficulity swallowing) Respiratory: shortness of breath with extertion Cardiology: other (Negtaive for chest pain, palpitations) Gastrointestinal: other (Negative for nausea, vomiting) Musculoskeletal: arthritis/arthralgias, back pain
[2020-07-18 12:04] VITALS: BMI 21.2
[2020-07-18] MEDS ORDERED: Lidocaine 5% Patch TD SCH (12:15)
[2020-07-18] MEDS: Vancomycin HCl 1.25 GM in Sodium Chloride 0.9% 250 ML 250 ML IVPB SCH ×2 (12:43→21:01)
[2020-07-18] MEDS: HYDROcodone/Acetaminophen 10/325 mg Tablet PO PRN ×3 (12:44→21:00)
--- NOTE | 2020-07-18 14:19 | PDOC.MOPN ---
Interval History: breathing improved with Pleurx cath, ate breakfast. - Vital Signs Vital Signs: Vital Signs (12 hours) Temp Pulse Resp BP Pulse Ox 07/18/20 12:39 100.2 F H 121 H 18 109/79 100 07/18/20 09:59 115 H 120/71 07/18/20 07:28 98.5 F 101 H 19 118/69 100 07/18/20 07:18 100 07/18/20 03:37 99.2 F 100 18 124/71 100 Weight Admit Weight 150 lb Weight 147 lb 12.8 oz - Physical Exam HEENT: Atraumatic, PERRLA, EOMI, Mucous membr. moist/pink Lungs: Other (good aeration) Cardiovascular: Regular rate, Normal S1, Normal S2, No murmurs, Gallops, Rubs Abdomen: Normal bowel sounds, Soft, No tenderness, No hepatospenomegaly, No masses Extremities: No clubbing, No cyanosis, No edema, Normal pulses, No t enderness/swelling Skin: No rashes, No breakdown, No significant lesion Neurological: Normal speech - Labs Result Diagrams: 07/18/20 03:54 07/18/20 03:54 Lab results: Laboratory Results - last 24 hr 07/18/20 03:54: WBC 13.1 H, RBC 2.94 L, Hgb 8.3 L, Hct 25.8 L, MCV 87.7, MCH 28. 3, MCHC 32.3, RDW 16.9 H, Plt Count 206, MPV 8.2, Neutrophils % 87.5 H, Lymphocytes % 5.8 L, Monocytes % 6.5, Eosinophils % 0.0, Basophils % 0.1, Neutrophils # 11.5 H, Lymphocytes # 0.8 L, Monocytes # 0.9 H, Eosinophils # 0.0, Basophils # 0.0 07/18/20 03:54: Sodium 137, Potassium 4.3, Chloride 103, Carbon Dioxide 27, Anion Gap 11, BUN 15, Creatinine 0.72, Estimated GFR (MDRD) Greater than 90, Glucose 178 H, Calcium 8.5 07/17/20 21:13: Vancomycin Trough 15.3 07/17/20 18:26: Vitamin B12 Greater than 2000 H 07/17/20 18:26: Folate 11.40 07/17/20 18:26: Iron 18 L Status: lab reviewed by me A/P - Problem (1) Pleural effusion Current Visit: No Code(s): J90 - PLEURAL EFFUSION, NOT ELSEWHERE CLASSIFIED Status: Acute (2) Small cell carcinoma Current Visit: No Code(s): C80.1 - MALIGNANT (PRIMARY) NEOPLASM, UNSPECIFIED Status: Chronic - Plan Plan: discussed findings on CT scan Patient and son understand he needs to get stronger for treatment Megace for appetite stimulation continue pleurx cath drainage.
--- NOTE | 2020-07-18 16:34 | PDOC.HOSPP ---
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 Continues - Objective Vital Signs & Weight: Vital Signs (12 hours) Temp Pulse Resp BP Pulse Ox 07/18/20 16:03 100.5 F H 119 H 18 112/66 100 07/18/20 12:39 100.2 F H 121 H 18 109/79 100 07/18/20 09:59 115 H 120/71 07/18/20 07:28 98.5 F 101 H 19 118/69 100 07/18/20 07:18 100 Weight Admit Weight 150 lb Weight 147 lb 12.8 oz I&O: 07/17/20 07/18/20 07/19/20 06:59 06:59 06:59 Intake Total 1020 530 Balance 1020 530 Result Diagrams: 07/18/20 03:54 07/18/20 03:54 Additional Labs: Microbiology 07/16/20 08:55 Nasal swab Influenza Types A,B Direct EIA - Final 07/16/20 08:54 Venous blood - Right Arm Blood Culture - Preliminary NO GROWTH AT 48 HOURS 07/16/20 08:54 Venous blood - Left Arm Blood Culture - Preliminary NO GROWTH AT 48 HOURS Laboratory Tests 07/06/20 07/10/20 07/16/20 15:54 08:15 08:54 WBC Hgb Iron AST 147 H 135 H 146 H ALT 203 H 217 H 208 H Alkaline Phosphatase 302 H 343 H 439 H Vitamin B12 Folate SARS-CoV-2 Rap RNA(RT-PCR) 07/16/20 07/16/20 07/17/20 08:54 08:55 04:31 WBC 17.2 H 16.4 H Hgb 10.3 L 8.7 L Iron AST ALT Alkaline Phosphatase Vitamin B12 Folate SARS-CoV-2 Rap RNA(RT-PCR) Not Detected 07/17/20 07/17/20 07/17/20 18:26 18:26 18:26 WBC Hgb Iron 18 L AST ALT Alkaline Phosphatase Vitamin B12 Greater than 2000 H Folate 11.40 SARS-CoV-2 Rap RNA(RT-PCR) Radiology Reviewed by me: Yes (CTA chest - opacification of R hemithorax, effusion, neoplasm progression) EKG Reviewed by me: Yes (Tele - sinus tach in low-100's) Hospitalist ROS - Medication Medications: Active Medications Generic Name Dose Route Start Last Admin Trade Name Freq PRN Reason Stop Dose Admin Hydrocodone Bitart/Acetaminophen 1 tab 07/18/20 11:14 07/18/20 12:44 Hydrocodone/Acetaminophen 10/325 Mg Tablet PO 1 tab Q4H PRN Administration Pain Atorvastatin Calcium 20 mg 07/16/20 21:00 07/17/20 21:31 Atorvastatin Calcium 20 Mg Tab PO 20 mg HS RAJNI Administration Carvedilol 3.125 mg 07/17/20 09:00 07/18/20 09:50 Carvedilol 3.125 Mg Tab PO 3.125 mg DAILY RAJNI Administration Piperacillin Sod/Tazobactam 100 mls @ 200 mls/hr 07/16/20 15:00 07/18/20 16:06 Sod 3.375 gm/ Sodium Chloride IVPB 100 mls 0300,0900,1500,2100 RAJNI Administration Vancomycin HCl 1.25 gm/ Sodium 250 mls @ 166.667 mls/hr 07/16/20 22:00 07/18/20 12:43 Chloride IVPB 250 mls 1000,2200 RAJNI Administration Melatonin 3 mg 07/16/20 15:16 07/17/20 22:14 Melatonin 3 Mg Tab PO 3 mg HS PRN Administration Insomnia Memantine 5 mg 07/17/20 09:00 07/18/20 09:51 Memantine Hcl 5 Mg Tab PO 5 mg DAILY RAJNI Administration Morphine Sulfate 2 mg 07/16/20 15:16 07/18/20 03:51 Morphine 2 Mg/Ml Vial SLOW IVP 2 mg Q4H PRN Administration Moderate Pain (4-6) Ondansetron HCl 4 mg 07/17/20 18:00 07/18/20 12:44 Ondansetron Odt 4 Mg Tab SL 4 mg Q6H RAJNI Administration Pantoprazole Sodium 40 mg 07/17/20 09:00 07/18/20 09:51 Pantoprazole 40 Mg Tab PO 40 mg DAILY RAJNI Administration Senna/Docusate Sodium 1 tab 07/16/20 21:00 07/18/20 09:54 Senokot S 8.6-50 Mg Tab PO Not Given BID RAJNI Tramadol HCl 50 mg 07/16/20 14:49 07/18/20 09:52 Tramadol Hcl 50 Mg Tab PO 50 mg Q6H PRN Administration Moderate Pain (4-6) - Exam General Appearance: awake alert General - other findings: responsive, smiles Eye: PERRL, anicteric sclera ENT: normocephalic atraumatic, no oropharyngeal lesions Neck: supple, symmetric, no JVD, no thyromegaly Heart: no gallops, no rubs, normal peripheral pulses Heart - other findings: S1, S2 tachycardic Respiratory - other findings: diminished in R hemithorax, R pleur-x catheter in place Gastrointestinal: soft, non-tender, non-distended, normal bowel sounds, no palpable masses Extremities: no cyanosis, no clubbing, no edema Skin: normal turgor, no lesions Neurological: cranial nerve grossly intact, no new deficit Musculoskeletal: generalized weakness, diffuse muscle atrophy Psychiatric: A&O x 3, flat affect Hosp A/P (1) Sepsis Code(s): A41.9 - SEPSIS, UNSPECIFIED ORGANISM Status: Acute Qualifiers: Sepsis type: sepsis due to unspecified organism Plan: Suspected, continue Zosyn/Vancomycin another 24h (2) Malignant pleural effusion Code(s): J91.0 - MALIGNANT PLEURAL EFFUSION Status: Chronic Plan: s/p Pleur-x catheter placement, improved aeration/oxygenation (3) Generalized weakness Code(s): R53.1 - WEAKNESS Status: Acute Plan: PT for mobilization/ambulation (4) Small cell carcinoma Code(s): C80.1 - MALIGNANT (PRIMARY) NEOPLASM, UNSPECIFIED Status: Chronic Plan: Metastatic process involving bone/liver, outpt chemotx when stable - Plan plan discussed w/ family, continue antibiotics, PT/OT, social work therapist, respiratory therapy, out of bed/ambulate, DVT proph w/SCDs Consults: Palliative Care Continue supportive mgmt Continue Pleur-x catheter drainage Continue IV abx another 24h then de-escalate OOB with PT Pain control, trial Lidocaine patches AM lab: BMP, CBC
--- NOTE | 2020-07-18 19:38 | PRG ---
DATE OF SERVICE: 07/18/2020 SUBJECTIVE: [place] has pleural catheter in. OBJECTIVE: VITAL SIGNS: He has temperature of 100.2 to 100.5 this evening, which I would expect, given the almost completely atelectatic right lung. Heart rate is 119, respiratory rate is 18, oximetry is 100%, blood pressure is 112/66. LUNGS: Remarkable for improved aeration on the right. HEART: Regular rhythm. ABDOMEN: Soft. IMPRESSION: Large malignant pleural effusion, now with the PleurX catheter. He is a candidate to go home in my opinion. We will sign off. Job ID: [id number]
[2020-07-18] MEDS: Atorvastatin Calcium 20 MG TAB PO SCH (20:35)
[2020-07-18] MEDS: Lidocaine Patch Removal 1 EACH TOP SCH (20:36)
[2020-07-19] MEDS: Ondansetron ODT 4 MG TAB SL SCH ×5 (00:10→23:03)
[2020-07-19] MEDS: Piperacillin/Tazobactam 3.375 GM in Sodium Chloride 0.9% 100 ML IVPB SCH ×4 (03:31→20:10)
[2020-07-19] MEDS: HYDROcodone/Acetaminophen 10/325 mg Tablet PO PRN ×4 (03:36→23:02)
[2020-07-19 04:14] LABS: #Lymphocytes 0.6 thou/uL (1.20-3.40); #Monocytes 0.6 thou/uL (0.11-0.59); #Neutrophils 10.8 thou/uL (1.40-6.50); %Basophils 0.2 % (0.0-1.0); %Eosinophils 0.1 % (0.0-10.0); %Lymphocytes 5.1 % (21.0-51.0); %Monocytes 4.8 % (0.0-10.0); %Neutrophils 89.8 % (42.0-75.0); Hemoglobin 8.5 g/dL (14.0-18.0); Mean Corpuscular HGB CONC 31.5 g/dL (32.0-36.0); Mean Corpuscular Hemoglobin 27.8 pg (27.0-31.0); Mean Corpuscular Volume 88.4 fL (78.0-98.0); Mean Platelet Volume 7.9 fL (7.4-10.4); Platelet Count 165 thou/uL (130-400); RBC Distribution Width 16.9 % (11.5-14.5); Red Blood Cell (RBC) Count 3.04 mill/uL (4.70-6.10)
[2020-07-19 04:36] LABS: Anion Gap 13 mmol/L (10-20); BUN (Urea Nitrogen) 12 mg/dL (8.4-25.7); Calc. Creatinine Clearance 100 mL/min (70-130); Calcium 8.7 mg/dL (7.8-10.44); Carbon Dioxide 26 mmol/L (23-31); Chloride 100 mmol/L (98-107); Estimated GFR-MDRD Greater than 90; Glucose 217 mg/dL (80-115); Potassium 4.2 mmol/L (3.5-5.1); Sodium 135 mmol/L (136-145)
--- NOTE | 2020-07-19 08:43 | PDOC.MOPN ---
Interval History: Pt feeling slightly better today. Has mild abd pain at the moment which is chronic. Appetite ok, says almost back to his baseline which is low to begin with. SOB minimal. - Vital Signs Vital Signs: Vital Signs (12 hours) Temp Pulse Resp BP Pulse Ox 07/19/20 08:37 98 07/19/20 07:45 97.7 F 97 19 121/76 98 07/19/20 03:22 97.4 F L 96 15 122/70 97 07/19/20 00:05 112/71 Weight Admit Weight 150 lb Weight 152 lb - Physical Exam General: Alert, Oriented x3, Cooperative HEENT: EOMI Lungs: Other (decreased breath sounds in right [id number] lung field) Cardiovascular: Regular rate Abdomen: Soft Psych/Mental Status: Mood NL - Labs Result Diagrams: 07/19/20 03:56 07/19/20 03:56 Lab results: Laboratory Results - last 24 hr 07/19/20 03:56: WBC 12.0 H, RBC 3.04 L, Hgb 8.5 L, Hct 26.8 L, MCV 88.4, MCH 27.8, MCHC 31.5 L, RDW 16.9 H, Plt Count 165, MPV 7.9, Neutrophils % 89.8 H, Lymphocytes % 5.1 L, Monocytes % 4.8, Eosinophils % 0.1, Basophils % 0.2, Neutrophils # 10.8 H, Lymphocytes # 0.6 L, Monocytes # 0.6 H, Eosinophils # 0.0, Basophils # 0.0 07/19/20 03:56: Sodium 135 L, Potassium 4.2, Chloride 100, Carbon Dioxide 26, Anion Gap 13, BUN 12, Creatinine 0.68 L, Estimated GFR (MDRD) Greater than 90, Glucose 217 H, Calcium 8.7 A/P - Problem (1) Malignant pleural effusion Current Visit: Yes Code(s): J91.0 - MALIGNANT PLEURAL EFFUSION Status: Chronic (2) Metastatic adenocarcinoma to liver Current Visit: No Code(s): C78.7 - SECONDARY MALIG NEOPLASM OF LIVER AND I NTRAHEPATIC BILE DUCT Status: Acute (3) Small cell carcinoma Current Visit: No Code(s): C80.1 - MALIGNANT (PRIMARY) NEOPLASM, UNSPECIFIED Status: Chronic - Plan Plan: Megace for appetite Pleur-X for malignant pleural effusion I d/w patient the need for improvement in strength/PS prior to any further treatment. Next line of treatment would be single agent Taxol or Zepzelca. Will monitor hospital course, f/u with me in clinic after discharge
[2020-07-19] MEDS: Dexamethasone 4 MG TAB PO SCH (09:11)
[2020-07-19] MEDS: Senokot S 8.6-50 MG TAB PO SCH ×2 (09:11→20:10)
[2020-07-19] MEDS: Carvedilol 3.125 MG TAB PO SCH (09:12)
[2020-07-19] MEDS: Megestrol Acetate 40 MG TAB PO SCH (09:12)
[2020-07-19] MEDS: Lidocaine 5% Patch TD SCH (09:13)
[2020-07-19 09:27] LABS: Vancomycin, Trough 12.4 ug/mL
[2020-07-19] MEDS: Vancomycin 1 GM in Premix Bag 1 BAG IVPB SCH ×2 (12:24→19:58)
[2020-07-19] MEDS: Vancomycin HCl 1.25 GM in Sodium Chloride 0.9% 250 ML 250 ML IVPB SCH (12:24)
--- NOTE | 2020-07-19 13:17 | PDOC.HOSPP ---
- Subjective Encounter Date: 07/19/20 Encounter Time: 13:00 Subjective: f/u for small cell lung carcinoma with R malignant pleural effusion s/p Pleur-x catheter placement. Feels better overall and appetite improving. - Objective Vital Signs & Weight: Vital Signs (12 hours) Temp Pulse Pulse Pulse Resp BP BP 07/19/20 11:34 98.5 F 92 18 07/19/20 10:40 94 91 125/74 163/87 H 07/19/20 08:37 07/19/20 07:45 97.7 F 97 19 07/19/20 03:22 97.4 F L 96 15 BP Pulse Ox Pulse Ox 07/19/20 11:34 114/71 99 07/19/20 10:40 100 07/19/20 08:37 98 07/19/20 07:45 121/76 98 07/19/20 03:22 122/70 97 Weight Admit Weight 150 lb Weight 152 lb I&O: 07/18/20 07/19/20 07/20/20 06:59 06:59 06:59 Intake Total 530 1490 Balance 530 1490 Result Diagrams: 07/19/20 03:56 07/19/20 03:56 Additional Labs: Microbiology 07/16/20 08:55 Nasal swab Influenza Types A,B Direct EIA - Final 07/16/20 08:54 Venous blood - Right Arm Blood Culture - Preliminary NO GROWTH AT 48 HOURS 07/16/20 08:54 Venous blood - Left Arm Blood Culture - Preliminary NO GROWTH AT 48 HOURS Laboratory Tests 07/06/20 07/10/20 07/16/20 15:54 08:15 08:54 WBC Hgb Iron AST 147 H 135 H 146 H ALT 203 H 217 H 208 H Alkaline Phosphatase 302 H 343 H 439 H Vitamin B12 Folate SARS-CoV-2 Rap RNA(RT-PCR) 07/16/20 07/16/20 07/17/20 08:54 08:55 04:31 WBC 17.2 H 16.4 H Hgb 10.3 L 8.7 L Iron AST ALT Alkaline Phosphatase Vitamin B12 Folate SARS-CoV-2 Rap RNA(RT-PCR) Not Detected 07/17/20 07/17/20 07/17/20 18:26 18:26 18:26 WBC Hgb Iron 18 L AST ALT Alkaline Phosphatase Vitamin B12 Greater than 2000 H Folate 11.40 SARS-CoV-2 Rap RNA(RT-PCR) EKG Reviewed by me: Yes (Tele - SR) Hospitalist ROS - Medication Medications: Active Medications Generic Name Dose Route Start Last Admin Trade Name Freq PRN Reason Stop Dose Admin Hydrocodone Bitart/Acetaminophen 1 tab 07/18/20 11:14 07/19/20 09:11 Hydrocodone/Acetaminophen 10/325 Mg Tablet PO 1 tab Q4H PRN Administration Pain Atorvastatin Calcium 20 mg 07/16/20 21:00 07/18/20 20:35 Atorvastatin Calcium 20 Mg Tab PO 20 mg HS RAJNI Administration Carvedilol 3.125 mg 07/17/20 09:00 07/19/20 09:12 Carvedilol 3.125 Mg Tab PO 3.125 mg DAILY RAJNI Administration Dexamethasone 8 mg 07/19/20 09:00 07/19/20 09:11 Dexamethasone 4 Mg Tab PO 8 mg DAILY RAJNI Administration Piperacillin Sod/Tazobactam 100 mls @ 200 mls/hr 07/16/20 15:00 07/19/20 09:10 Sod 3.375 gm/ Sodium Chloride IVPB 100 mls 0300,0900,1500,2100 RAJNI Administration Vancomycin HCl 1 gm/ Device 200 mls @ 200 mls/hr 07/19/20 12:00 07/19/20 12:24 IVPB 200 mls 0400,1200,2000 RAJNI Administration Lidocaine 2 patch 07/19/20 09:00 07/19/20 09:13 Lidocaine 5% Patch TD 2 patch DAILY RAJNI Administration Megestrol Acetate 40 mg 07/19/20 09:00 07/19/20 09:12 Megestrol Acetate 40 Mg Tab PO 40 mg DAILY RAJNI Administration Melatonin 3 mg 07/16/20 15:16 07/17/20 22:14 Melatonin 3 Mg Tab PO 3 mg HS PRN Administration Insomnia Memantine 5 mg 07/17/20 09:00 07/19/20 09:12 Memantine Hcl 5 Mg Tab PO 5 mg DAILY RAJNI Administration Miscellaneous Medication 1 each 07/18/20 21:00 07/18/20 20:36 Lidocaine Patch Removal 1 Each TOP Not Given 2100 RAJNI Morphine Sulfate 2 mg 07/16/20 15:16 07/18/20 03:51 Morphine 2 Mg/Ml Vial SLOW IVP 2 mg Q4H PRN Administration Moderate Pain (4-6) Ondansetron HCl 4 mg 07/17/20 18:00 07/19/20 12:24 Ondansetron Odt 4 Mg Tab SL 4 mg Q6H RAJNI Administration Pantoprazole Sodium 40 mg 07/17/20 09:00 07/19/20 09:12 Pantoprazole 40 Mg Tab PO 40 mg DAILY RAJNI Administration Senna/Docusate Sodium 1 tab 07/16/20 21:00 07/19/20 09:11 Senokot S 8.6-50 Mg Tab PO 1 tab BID RAJNI Administration Tramadol HCl 50 mg 07/16/20 14:49 07/18/20 09:52 Tramadol Hcl 50 Mg Tab PO 50 mg Q6H PRN Administration Moderate Pain (4-6) - Exam General Appearance: NAD, awake alert Eye: PERRL, anicteric sclera ENT: normocephalic atraumatic, no oropharyngeal lesions Neck: supple, symmetric, no JVD, no thyromegaly Heart: RRR, no gallops, no rubs, normal peripheral pulses Heart - other findings: S1, S2 Respiratory - other findings: R base with diminished breath sounds, L field clear Gastrointestinal: soft, non-tender, non-distended, normal bowel sounds, no palpable masses Extremities: no cyanosis, no clubbing, no edema Skin: normal turgor Neurological: cranial nerve grossly intact, no new deficit Musculoskeletal: normal tone, generalized weakness, diffuse muscle atrophy Psychiatric: A&O x 3, flat affect Hosp A/P (1) Sepsis Code(s): A41.9 - SEPSIS, UNSPECIFIED ORGANISM Status: Acute Qualifiers: Sepsis type: sepsis due to unspecified organism Plan: Continue Zosyn/Vancomycin another 24h then d/c (2) Malignant pleural effusion Code(s): J91.0 - MALIGNANT PLEURAL EFFUSION Status: Chronic Plan: s/p Pleur-x catheter, monitor output, train family on use of device (3) Generalized weakness Code(s): R53.1 - WEAKNESS Status: Acute Plan: PT for mobilization (4) Small cell carcinoma Code(s): C80.1 - MALIGNANT (PRIMARY) NEOPLASM, UNSPECIFIED Status: Chronic Plan: Medical oncology follow up as outpt - Plan plan discussed w/ family, continue antibiotics, PT/OT, social worker health services, respiratory therapy, out of bed/ambulate, DVT proph w/SCDs Consults: Palliative Care Continue supportive mgmt Continue Pleur-x catheter drainage Continue IV abx another 24h then de-escalate OOB with PT Pain control, trial Lidocaine patches Educate/train family on mgmt of Pleur-x catheter AM lab: CBC Likely home in 24h
--- NOTE | 2020-07-19 15:55 | PRG ---
DATE OF SERVICE: 07/19/2020 SUBJECTIVE: [place] is waiting about the drainage box. OBJECTIVE: VITAL SIGNS: He is afebrile. Heart rate is 92, respiratory rate is 18, oximetry is 99% on 2 L, blood pressure 125/74. LUNGS: Clear anteriorly. IMPRESSION: Small-cell lung cancer, status post Pleurx catheter. Hopefully, go home soon. We will sign off. Job ID: [id number]
--- NOTE | 2020-07-19 16:08 | PDOC.PALPN ---
Palliative Progress Note - Subjective "Feels Better". States he has improvement in pain, but "still there". Plurex drain placed 07/18 patient reports awaiting teaching in relation to care and use. Youngest son at bedside. Appetite fair, and improving. - Objective Vital Signs: Vital Signs - Most Recent Temp Pulse Resp BP Pulse Ox 98.5 F 92 18 114/71 99 07/19/20 11:34 07/19/20 11:34 07/19/20 11:34 07/19/20 11:34 07/19/20 11:34 - Physical Exam Constitutional: cachectic, ill appearing HEENT: EOMI, moist MMs, sclera anicteric Respiratory: unlabored breathing Deviation from normal: Right diminished, left upper/lower clear Gastrointestinal: continent, soft, non-tender Genitourinary: continent Musculoskeletal: no cyanosis, no clubbing, diffuse muscle atrophy Neurology: moves all 4 limbs, no focal deficits Skin: cap refill <2 seconds Psychiatric: A&O x 3, normal mood - Assessment (1) Sepsis Code(s): A41.9 - SEPSIS, UNSPECIFIED ORGANISM Current Visit: Yes Status: Acute Qualifiers: Sepsis type: sepsis due to unspecified organism (2) Malignant pleural effusion Code(s): J91.0 - MALIGNANT PLEURAL EFFUSION Current Visit: Yes Status: Chronic (3) Abdominal pain Code(s): R10.9 - UNSPECIFIED ABDOMINAL PAIN Current Visit: No Status: Acute (4) Generalized weakness Code(s): R53.1 - WEAKNESS Current Visit: No Status: Acute (5) Metastatic adenocarcinoma to liver Code(s): C78.7 - SECONDARY MALIG NEOPLASM OF LIVER AND INTRAHEPATIC BILE DUCT Current Visit: No Status: Acute (6) Palliative care encounter Code(s): Z51.5 - ENCOUNTER FOR PALLIATIVE CARE Current Visit: No Status: Acute (7) Small cell carcinoma Code(s): C80.1 - MALIGNANT (PRIMARY) NEOPLASM, UNSPECIFIED Current Visit: No Status: Chronic - Plan Plan: Awaiting teaching for use of plurex drain in home setting. Discussed disease prognosis, patient and family hopeful for continued management of cancer and related symptoms. Understanding that all treatment and therapy are palliative in nature. Encouraged patient to discuss with his three children and revisit Goal of Care if he is unable to tolerate any further treatment secondary to declining health status and metastatic cancer. Discussed resuscitation status, patient confirms he wishes to remain with full resuscitation measures. Encouraged him to discuss his wishes if in any event he is unable to make decisions for himself. Megase was initiated yesterday for appetite Pain management effective. Patient requested Palliative Care visit 07/20 when his daughter is here to revisit conversations from today. Consideration of home with home health, may be optimal to select one that has both home health and hospice. [45] minutes spent on this encounter with >50% of the time in counseling and coordination of care. - ROS Constitutional: loss appetite, weakness ENT: other (Denies throat irritation, cough) Respiratory: shortness of breath with extertion Cardiology: other (Denies palpitations or chest pain) Gastrointestinal: stomach discomfort Genitourinary: other (Denies hematuria, dysuria) Musculoskeletal: arthritis/arthralgias, other (chest wall pain) Psychological: other (denies anxiety or depression)
[2020-07-19] MEDS: Atorvastatin Calcium 20 MG TAB PO SCH (20:09)
[2020-07-19] MEDS: Lidocaine Patch Removal 1 EACH TOP SCH (20:10)
[2020-07-20] MEDS: Piperacillin/Tazobactam 3.375 GM in Sodium Chloride 0.9% 100 ML IVPB SCH ×2 (02:08→08:51)
[2020-07-20] MEDS: HYDROcodone/Acetaminophen 10/325 mg Tablet PO PRN ×2 (03:09→08:50)
[2020-07-20] MEDS: Vancomycin 1 GM in Premix Bag 1 BAG IVPB SCH ×2 (03:09→12:17)
[2020-07-20 04:22] LABS: #Lymphocytes 0.6 thou/uL (1.20-3.40); #Monocytes 0.7 thou/uL (0.11-0.59); #Neutrophils 11.8 thou/uL (1.40-6.50); %Lymphocytes 4.9 % (21.0-51.0); %Monocytes 5.5 % (0.0-10.0); %Neutrophils 89.6 % (42.0-75.0); Hemoglobin 8.5 g/dL (14.0-18.0); Mean Corpuscular HGB CONC 31.2 g/dL (32.0-36.0); Mean Corpuscular Hemoglobin 27.7 pg (27.0-31.0); Mean Corpuscular Volume 88.7 fL (78.0-98.0); Mean Platelet Volume 8.2 fL (7.4-10.4); Platelet Count 152 thou/uL (130-400); RBC Distribution Width 17.1 % (11.5-14.5); Red Blood Cell (RBC) Count 3.08 mill/uL (4.70-6.10); White Blood Cell (WBC) Count 13.2 thou/uL (4.8-10.8)
[2020-07-20] MEDS: Ondansetron ODT 4 MG TAB SL SCH ×2 (05:10→12:17)
[2020-07-20] MEDS: Senokot S 8.6-50 MG TAB PO SCH (08:51)
[2020-07-20] MEDS: Dexamethasone 4 MG TAB PO SCH (08:51)
[2020-07-20] MEDS: Lidocaine 5% Patch TD SCH (08:51)
[2020-07-20] MEDS: Megestrol Acetate 40 MG TAB PO SCH (08:51)
[2020-07-20] MEDS: Carvedilol 3.125 MG TAB PO SCH (08:51)
[2020-07-20 12:17] VITALS: BP 136/73; TEMP 97.9
[2020-07-20 13:21] LABS: Vancomycin, Trough 38.4 ug/mL
--- NOTE | 2020-07-20 14:11 | PDOC.PALPN ---
Palliative Progress Note - Subjective Hopeful to transition to home. Granddaughter Cindy at bedside. Mr Bhatt states pain/discomfort remain but slightly improved. - Objective Vital Signs: Vital Signs - Most Recent Temp Pulse Resp BP Pulse Ox 97.9 F 113 H 17 136/73 99 07/20/20 12:16 07/20/20 12:16 07/20/20 12:16 07/20/20 12:16 07/20/20 12:16 - Physical Exam Constitutional: cachectic, ill appearing HEENT: EOMI, moist MMs, sclera anicteric Respiratory: unlabored breathing Deviation from normal: Diminished to right, no wheezing/rales to left Cardiovascular: RRR Gastrointestinal: continent, soft, non-tender Deviation from normal: distended Genitourinary: continent Musculoskeletal: no cyanosis, no clubbing Neurology: moves all 4 limbs, no focal deficits Skin: cap refill <2 seconds Psychiatric: A&O x 3 - Assessment (1) Sepsis Code(s): A41.9 - SEPSIS, UNSPECIFIED ORGANISM Current Visit: Yes Status: Acute Qualifiers: Sepsis type: sepsis due to unspecified organism (2) Malignant pleural effusion Code(s): J91.0 - MALIGNANT PLEURAL EFFUSION Current Visit: Yes Status: Chronic (3) Abdominal pain Code(s): R10.9 - UNSPECIFIED ABDOMINAL PAIN Current Visit: No Status: Acute (4) Generalized weakness Code(s): R53.1 - WEAKNESS Current Visit: No Status: Acute (5) Metastatic adenocarcinoma to liver Code(s): C78.7 - SECONDARY MALIG NEOPLASM OF LIVER AND INTRAHEPATIC BILE DUCT Current Visit: No Status: Acute (6) Palliative care encounter Code(s): Z51.5 - ENCOUNTER FOR PALLIATIVE CARE Current Visit: No Status: Acute (7) Small cell carcinoma Code(s): C80.1 - MALIGNANT (PRIMARY) NEOPLASM, UNSPECIFIED Current Visit: No Status: Chronic - Plan Plan: Spoke with patient and his daughter Kassi by phone. Revisited Goal of care. *Manage plurex in home setting *Hope is for patient to attempt to gain strength at home and follow up with the cancer clinic to see if he can attempt any further chemo. *They are understanding that cancer is metastatic and that chemo is only palliative. *Family plans on meeting together to have a plan for hospice when Mr Bhatt is not able to pursue chemo *Continue with full resuscitation as per Mr Bhatt, however family and patient state they are going to also revisit this at home with consideration of resuscitation status and when to transition to a DNAR Emotional support Therapeutic listening. Palliative Care will sign off as Goal of care currently identified and patient desires to remain with full resuscitation measures. Please reconsult our team if we can revisit Goal of Care, assist with education in relation to disease trajectory, complex decision making. [35] minutes spent on this encounter with >50% of the time in counseling and coordination of care. - ROS Constitutional: alert, weakness ENT: other (Denies difficulity swallowing, congestoin) Respiratory: shortness of breath with extertion, other (denies cough) Cardiology: other (denies palpitations or angina) Gastrointestinal: other (negative for nausea or vomiting) Musculoskeletal: arthritis/arthralgias
--- NOTE | 2020-07-20 15:15 | PDOC.MOPN ---
Interval History: no SOB, eating more. ready for discharge. - Vital Signs Vital Signs: Vital Signs (12 hours) Temp Pulse Pulse Resp BP BP Pulse Ox 07/20/20 12:16 97.9 F 113 H 17 136/73 99 07/20/20 10:14 100 125/53 L 07/20/20 07:26 98.1 F 110 H 19 125/73 99 Pulse Ox 07/20/20 12:16 07/20/20 10:14 98 07/20/20 07:26 Weight Admit Weight 150 lb Weight 155 lb 3.195 oz - Physical Exam General: Alert, Oriented x3, No acute distress HEENT: Atraumatic, PERRLA, EOMI, Mucous membr. moist/pink Lungs: Other Cardiovascular: Regular rate, Normal S1, Normal S2, No murmurs, Gallops, Rubs Abdomen: Normal bowel sounds, Soft, No tenderness, No hepatospenomegaly, No masses Neurological: Normal gait, Normal speech, Strength at 5/5 X4 ext, Normal tone, Sensation intact, Cranial nerves 3-12 NL, Reflexes 2+ - Labs Result Diagrams: 07/20/20 04:04 07/19/20 03:56 Lab results: Laboratory Results - last 24 hr 07/20/20 12:42: Vancomycin Trough 38.4 H* 07/20/20 04:04: WBC 13.2 H, RBC 3.08 L, Hgb 8.5 L, Hct 27.3 L, MCV 88.7, MCH 27.7, MCHC 31.2 L, RDW 17.1 H, Plt Count 152, MPV 8.2, Neutrophils % 89.6 H, Lymphocytes % 4.9 L, Monocytes % 5.5, Eosinophils % 0.0, Basophils % 0.0, Neutrophils # 11.8 H, Lymphocytes # 0.6 L, Monocytes # 0.7 H, Eosinophils # 0.0, Basophils # 0.0 Status: lab reviewed by me A/P - Problem (1) Pleural effusion Current Visit: No Code(s): J90 - PLEURAL EFFUSION, NOT ELSEWHERE CLASSIFIED Status: Acute (2) Small cell carcinoma Current Visit: No Code(s): C80.1 - MALIGNANT (PRIMARY) NEOPLASM, UNSPECIFIED Status: Chronic - Plan Plan: continue drainage per pleurx norco sent to outside pharmacy follow-up with Dr. Ray next week to discuss treatment.
--- NOTE | 2020-07-21 10:43 | DIS ---
DATE OF ADMISSION: 07/17/2020 DATE OF DISCHARGE: 07/20/2020 DISCHARGE DIAGNOSES: 1. Sepsis, suspected organism not identified. 2. 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 3. Status post PleurX catheter placement. 4. Generalized weakness, multifactorial. 5. Moderate protein-calorie malnutrition. CONSULTATIONS: 1. Dr. Milton Ray with Medical Oncology Service. 2. Dr. Piña with Pulmonology Service. 3. Dr. Jason Guerra with Vascular Surgery Service. PERTINENT LABORATORY AND X-RAY FINDINGS: Sodium ranged between 133 to 137. Lactic acid level ranged between 2.5 to 3.1. Phosphorus 3.8. Serum iron level 18. Vitamin B12 level greater than 2000. Folate level 11.40. CBC showed a white blood cell count ranging between 12.0 to 17.2, hemoglobin ranged between 8.3 to 10.3. COVID-19 PCR not detected on 07/16/2020. Blood cultures x2 dated 07/16/2020, showed no growth at 48 hours. Influenza A and B antigen dated 07/16/2020, negative. Portable chest x-ray dated 07/16/2020, showed opacification of the entire right hemithorax. CT angiogram of the chest dated 07/16/2020, showed no pulmonary embolism. Progression of malignancy with worsening postobstructive atelectasis and progression of tumor. Near complete opacification of the right lung. Worsening mediastinal lymphadenopathy. Osseous and hepatic metastasis. HOSPITAL COURSE: The patient initially presented with increasing shortness of breath in the context of small cell lung carcinoma with osseous and hepatic metastasis, with chest imaging showing opacification of the right hemithorax and suspected malignant pleural effusion. The patient was placed on oxygen supplementation and given IV vancomycin and Zosyn in the emergency room. The patient initially met sepsis criteria with septic shock; receiving sepsis protocol with IV antibiotic therapy, intravenous fluid resuscitation, and serial lactic acid monitoring. The patient was ruled out for potential COVID with negative COVID-19 PCR. The patient was evaluated by the Vascular Surgery Service and underwent successful placement of a PleurX catheter on 07/17/2020. 3 L of pleural effusion were evacuated at the time of the procedure. The patient continued to receive IV antibiotic therapy with Zosyn and vancomycin for the hospital course. The patient and family were given instruction and education on maintenance and care of the PleurX catheter as well as how to evacuate the system. Overall, the patient did remain clinically stable during the hospital course, tolerating regular oral intake with stable vital signs. I have examined the patient at the time of discharge and discussed followup instructions. The patient verbalizes understanding and agreement, ready for discharge on 07/20/2020. DISCHARGE MEDICATIONS: 1. Carvedilol 3.125 mg p.o. daily. 2. Memantine 5 mg p.o. daily. 3. Pravachol 80 mg p.o. at bedtime. 4. Augmentin 500/125 mg one tablet p.o. b.i.d. 5. Dexamethasone 4 mg p.o. daily. 6. Lidocaine 5% patch two patches transdermally daily, then remove. 7. Megace 40 mg p.o. daily. 8. Protonix 40 mg p.o. daily. 9. Senokot-S one tablet p.o. b.i.d. 10. Tramadol 50 mg p.o. q.6 hours p.r.n. pain. FOLLOWUP: The patient is to follow up with his primary care provider, Dr. Nehemias Cisse. CONDITION ON DISCHARGE: Fair. ACTIVITY: Ad-marie. DIET: Regular. CODE STATUS: Full. SPECIAL INSTRUCTIONS: Family and patient were given education on the maintenance and care as well as evacuation procedures of the right PleurX catheter. DISPOSITION: To home on 07/20/2020. TIME SPENT: Total time preparing and coordinating discharge, 37 minutes. Job ID: [id number]
--- NOTE | 2020-07-22 02:26 | PQF ---
Dear : Jason Canales Date 07/22/20 Please exercise your independent, professional judgment in responding to the clarification form. Clinical indicators are provided on the bottom of this form for your review Can you please further clarify the diagnosis of the patient? Can you please further clarify the conflicting diagnosis? Please check appropriate box(es): Conflicting documentation was noted in the Medical Record; please clarify if patient is being treated/monitored for: [ ] Sepsis without septic shock [ x ] Sepsis with septic shock [ ] Other diagnosis please specify [ ] Unable to determine Physician Signature: Date/Time: For continuity of documentation, please document condition throughout progress notes and discharge summary. Thank You. To be completed by CDI/Coding staff for physician review: Present Clinical Indicators - Signs / Symptoms / Labs Results and Location in Medical Record [ x ] Sepsis without septic shock H and P pg.4 [ x ] Patient initially met sepsis criteria with septic shock DS pg.1 [ x ] Lactic acid 3.1 H and P pg.1 [ x ] BP: 159/105, 101/87, 117/95, 125/98 ED Provider pg.1 [ x ] Sepsis concern for pneumonia with significant right pleural effusion Event Note pg.1 [ x ] WBC: 17.2H, 16.4H, 13.1H, 12.0H, 13.2H Laboratory [ x ] Sepsis, suspected organism not identified DS pg.1 Present Risk Factors Results and Location in Medical Record [ x ] Lung cancer H and P pg.5 [ x ] Liver metastasis H and P pg.5 [ x ] Malnutrition DS pg.1 [ x ] 65 years old H and P pg.1 Present Treatments Results and Location in Medical Record [ x ] IV Fluids MAR [ x ] Intravenous fluids resuscitation DS pg.1 [ x ] Serial lactic acid monitoring Laboratory [ x ] Cefazolin 2gm IV MAR [ x ] Zosyn 4.5gm IV MAR [ x ] Vancomycin 1gm IV MAR [ x ] Vasopressin 20unit STK-MED one MAR [facility] Signature: Artur Leija Phone #: [phone] Date 07/22/20 MTDD
== END 2020-07-20 15:21 | disposition home or self-care (01) | DRG 871 ==
LOC: ERS 08:05 → 2NO 13:21 → OBSVTOIN 07-17 14:43
PROVIDERS: ADMIT Family Medicine; ATTEND Family Medicine
PROC: 0W9930Z Drainage of Right Pleural Cavity with Drainage Device, Percutaneous Approach (ICD-10-PCS; principal; 2020-07-17)
DX: A41.9 Sepsis, unspecified organism (principal); R65.21 Severe sepsis with septic shock; J91.0 Malignant pleural effusion; C34.90 Malignant neoplasm of unspecified part of unspecified bronchus or lung; C78.7 Secondary malignant neoplasm of liver and intrahepatic bile duct; R64 Cachexia; E87.1 Hypo-osmolality and hyponatremia; C79.31 Secondary malignant neoplasm of brain; C79.51 Secondary malignant neoplasm of bone; J98.11 Atelectasis; E44.0 Moderate protein-calorie malnutrition; Z20.828 Contact with and (suspected) exposure to other viral communicable diseases; I10 Essential (primary) hypertension; E78.5 Hyperlipidemia, unspecified; D63.0 Anemia in neoplastic disease; Z90.49 Acquired absence of other specified parts of digestive tract; E78.00 Pure hypercholesterolemia, unspecified; Z51.5 Encounter for palliative care; Z68.22 Body mass index [BMI] 22.0-22.9, adult
CPT/HCPCS: 36415; 71045; 71275; 77336; 77412; 80048; 80053; 80202; 82274; 82607; 82746; 83540; 83605; 83615; 84100; 84484; 84550; 85025; 85610; 85730; 87040; 87804; 93005; 94760; 96365; 96367; 96375; 96376; C1729; G0378; J0690; J1644; J2250; J2270; J2543; J3370; J3490; J7050; J8540; Q0162; Q9967; S0179; U0002

== ENCOUNTER 2020-07-25 13:16 | Outpatient (CLI) | payer MEDICARE ==
--- NOTE | 2020-07-25 13:40 | RAD ---
EXAM: XR Chest Pa Lat STANDARD PROVIDED CLINICAL HISTORY: Malignant pleural effusion COMPARISON: 07/16/2020 FINDINGS: Visualized portions of cardiac and mediastinal silhouette are unchanged in appearance. Right IJ impla nted port is again seen with tip in similar position. Interval placement of right pleural drainage catheter with reduction in the degree of right hemithoracic opacity. There is conspicuous residual pl eural and/or parenchymal opacity involving much of the right hemithorax. There is interval development of small-volume left pleural fluid. There is no evidence for pneumothorax. IMPRESSION: 1. Interval reduction in right hemithoracic opacity status post right pleural drainage catheter place ment. 2. Development of left pleural fluid.
== END 2020-07-25 13:17 | disposition home or self-care (01) ==
LOC: BICRAD 13:16
PROVIDERS: ATTEND Thoracic Surgery (Cardiothoracic Vascular Surgery)
DX: J91.0 Malignant pleural effusion (principal)
CPT/HCPCS: 71046

== ENCOUNTER 2020-07-26 07:39 | Outpatient (CLI) | payer MEDICARE, OTHER ==
[2020-07-26 20:29] LABS: SARS-CoV-2 MS2 Positive; SARS-CoV-2 N Gene Negative; SARS-CoV-2 S Gene Negative; SARS-CoV-2 by NAA Not Detected (NotDetected); SARS-CoV-2 orf1ab Negative
== END 2020-07-26 07:40 | disposition home or self-care (01) ==
LOC: LABBT 07:39
PROVIDERS: ATTEND Thoracic Surgery (Cardiothoracic Vascular Surgery)
DX: Z01.812 Encounter for preprocedural laboratory examination (principal); Z20.828 Contact with and (suspected) exposure to other viral communicable diseases
CPT/HCPCS: 87635; U0003